=== PATIENT | female | born 1935 | race Caucasian/White ===

== ENCOUNTER → 2020-07-03 11:05 | Outpatient (BNVA) | payer MEDICARE, SELFPAY | PROVIDERS: PCP Internal Medicine; Visit Provider Surgery | DX: Z09 Encounter for follow-up examination after completed treatment for conditions other than malignant neoplasm (principal); Z87.2 Personal history of diseases of the skin and subcutaneous tissue | CPT/HCPCS: 99212 ==

== ENCOUNTER → 2020-07-31 10:01 | Outpatient (BNVA) | payer MEDICARE, SELFPAY | PROVIDERS: PCP Internal Medicine; Visit Provider Internal Medicine | DX: J44.9 Chronic obstructive pulmonary disease, unspecified (principal) | CPT/HCPCS: 99212 ==

== ENCOUNTER → 2020-08-07 09:31 | Outpatient (BNVA) | payer MEDICARE, SELFPAY | PROVIDERS: PCP Internal Medicine; Visit Provider Surgery | DX: L30.4 Erythema intertrigo (principal); K50.90 Crohn's disease, unspecified, without complications | CPT/HCPCS: 99212 ==

== ENCOUNTER 2020-08-21 16:05 | Emergency (ER) | payer MEDICARE, SELFPAY ==
[2020-08-21 16:22] LABS: Glucose, Whole Blood 158 mg/dL (60-115)
[2020-08-21 16:27] VITALS: BP 161/64; PULSE 80; RESP 16; TEMP 36.6; O2SAT 97; BMI 25.0
--- NOTE | 2020-08-21 17:06 | ED.GENADULT ---
HPI - General Adult General Chief complaint: General Medical Stated complaint: weakness Time Seen by Provider: 08/21/20 16:32 Source: patient Mode of arrival: ambulatory Limitations: no limitations History of Present Illness HPI narrative: Patient's history of diabetes usual blood sugar is around 150 lastly she did not check her blood sugar last night but had good dinner she took her 20 units of Lantus insulin went to sleep woke up today rate 30 not take her insulin did not eat any breakfast was feeling tired was feeling her blood sugar low so she had some sugar and peanut butter then she does not know what happened waiting for the ride to come for doctors appointment and she slept until 230pm patient on arrival patient's blood sugar was not 158 patient feels weak no abdominal pain no nausea no vomiting no diarrhea Related Data Home Medications Medication Instructions Recorded Confirmed amlodipine 10 mg tablet 10 mg PO DAILY 06/21/20 06/21/20 amlodipine 5 mg tablet 5 mg PO DAILY 06/21/20 06/21/20 insulin detemir U-100 100 unit/mL 20 unit SUBCUT DAILY 06/21/20 06/21/20 (3 mL) subcutaneous pen metoprolol succinate 50 mg 50 mg PO DAILY 06/21/20 06/21/20 tablet,extended release 24 hr nystatin 100,000 unit/gram topical TOPICAL BID 06/21/20 06/21/20 ointment simvastatin 10 mg tablet 10 mg PO DAILY 06/21/20 06/21/20 sodium bicarbonate 650 mg tablet 1,300 mg PO BID 06/21/20 06/21/20 albuterol sulfate 90 mcg/actuation 2 puff PO Q6H PRN 07/31/20 aerosol inhaler blood sugar diagnostic #10 ea 07/31/20 lancets #100 ea 07/31/20 pen needle, diabetic 31 gauge x #50 ea 07/31/2012/02 Previous Rx's Medication Instructions Recorded apixaban 5 mg tablet 5 mg PO BID #60 tab 07/31/20 menthol 0.44 %-zinc oxide 20.6 % 1 applic TOPICAL QID PRN #113 g 08/07/20 topical ointment tramadol 50 mg tablet 50 mg PO Q6H PRN #30 tab MDD 1-2 08/07/20 tabs PO Q6H as needed for Allergies Allergy/AdvReac Type Severity Reaction Status Date / Time Iodinated Contrast Media Allergy Severe ANAPHYLAXIS, Unverified 06/05/20 14:37 ITCHY EYES methadone [METHADONE] Allergy Intermediate AGITATED Unverified 06/05/20 14:37 zolpidem [From AMBIEN] Allergy Intermediate EXTREMELY Unverified 06/05/20 14:37 ANXIOUS belladonna alkaloids Allergy Mild UNKNOWN Unverified 06/05/20 14:37 halothane Allergy Mild UNKNOWN Unverified 06/05/20 14:37 morphine Allergy Mild HIVES, Unverified 06/05/20 14:37 AGITATION pentazocine Allergy Mild HIVES Unverified 06/05/20 14:37 Sulfa (Sulfonamide Allergy Mild HIVES, N/V Unverified 06/05/20 14:37 Antibiotics) , ITCHING codeine [Codeine] Allergy Unknown HIVES Unverified 06/05/20 14:37 Halothane Allergy Unknown Unknown Unverified 06/21/20 10:30 naloxone [From TALWIN NX] Allergy Unknown UNKOWN Unverified 06/05/20 14:37 Review of Systems Review of Systems: REVIEW OF SYSTEMS: Pertinent positives and negatives are stated above in the history. GEN: no fevers, chills, fatigue, Weak++ HEENT: no nasal congestion, sore throat, ear pain NEURO: no headache, dizziness, focal weakness PULM: no cough, shortness of breath CV: no chest pain, palpitations, LE edema ABD: no abdominal pain, nausea, vomiting, diarrhea : no dysuria, urgency, frequency SKIN: no rash ROS otherwise negative x 10 PMFSH Past Medical History Medical History COPD (chronic obstructive pulmonary disease) Crohn's disease Diabetes mellitus Emphysema lung Erythema intertrigo HTN (hypertension) with goal to be determined Seborrheic keratoses Surgical History History of abdominoplasty History of appendectomy History of bilateral salpingo-oophorectomy History of cholecystectomy History of hernia repair History of ileostomy History of laparotomy (~1970) History of tonsillectomy and adenoidectomy Family History Family History Father History of myocardial infarction Mother History of myocardial infarction Sister History of lymphoma Daughter History of fibromyalgia History of diabetes mellitus, type II Paternal Grandfather History of heart failure Maternal Grandfather History of heart failure Maternal Grandmother History of heart failure Social History Social History Alcohol intake: never Smoking Status: Never smoker Use of substances other than those prescribed or required for medical reasons: No Advance Directives: No Advance Directives Information Provided: No Physical Exam Vital Signs: Vital Signs: Last Vital Signs Temp 98.0 F 08/21/20 22:22 Pulse 89 08/21/20 23:08 Resp 20 08/21/20 22:22 BP 168/69 H 08/21/20 22:22 Pulse Ox 93 08/21/20 22:22 Body Mass Index 25.0 Appearance: Alert. Oriented X3. No acute distress. Eyes: Pupils equal, round and reactive to light. ENT: Pharynx normal. Neck: Normal inspection. Neck supple. CVS: Normal heart rate and rhythm. Pulses normal. Respiratory: No respiratory distress. Breath sounds normal. Equal air entry both sides Abdomen: Soft and nontender. Bowel sounds are present no mass palpable no hernia palpable colostomy bag in place allison Pelvic exam diffuse excoriation in pelvic area clinically intertrigo, spectral exam normal vagina from inside no bleeding Skin: Skin warm and dry. Normal skin color. Normal skin turgor. Extremities: No lower extremity edema. Good range of movement Neuro: Oriented X 3. No motor deficit. No sensory deficit. Course Course Course Narrative: Patient with increased weakness nonspecific feels unsafe to go home would like some help at home, in the ER when patient walk she was unsteady on her feet will get case management involved tomorrow patient with chronic renal disease Medical Decision Making MDM Narrative Medical decision making narrative: Patient has increased weakness workup is negative. Patient asking for help at will get case management patient signed out to Dr. flores Lab Data Lab results reviewed: Yes I reviewed the patient's lab results. Result diagrams: 08/21/20 18:51 08/21/20 18:51 Labs: Lab Results 08/21/20 08/21/20 08/21/20 Range/Units 16:19 17:25 17:25 WBC (4.8-10.8) X10*3/uL RBC (4.20-5.50) X10*6/uL Hgb (12.0-16.0) g/dl Hct (37-47) % MCV (80-98) fL MCH (27.0-33.0) pg MCHC (31.0-35.0) g/dl RDW (11.0-16.0) % Plt Count (160-400) X10*3/uL MPV (9.4-12.3) fL Immature Gran % (Auto) (0.0-0.4) % Neut % (Auto) (45-73) % Lymph % (Auto) (20-40) % [place] % (Auto) (2-11) % Eos % (Auto) (0-4) % Baso % (Auto) (0-2) % Lymph # (Auto) (1.2-4.9) X10*3/uL [place] # (Auto) (0.1-1.2) X10*3/uL Eos # (Auto) (0.0-0.4) X10*3/uL Baso # (Auto) (0.0-0.2) X10*3/uL Abs Immat Gran (auto) (0.00-0.03) X10*3/uL Absolute Neuts (auto) (2.0-8.3) X10*3/uL Absolute Nucleated RBC (0.0-0.012) X10*3/uL Nucleated RBC % (auto) (0.0-0.2) /100WBC Sodium (135-145) mmol/L Potassium (3.3-5.1) mmol/l Chloride (96-108) mmol/L Carbon Dioxide (22-29) mmol/L Anion Gap (12-20) BUN (9-16) mg/dL Creatinine (0.5-1.4) mg/dL Estim Creat Clear Calc Estimated GFR POC Glucose 158 H (60-115) mg/dL Random Glucose (60-115) mg/dL Calcium (8.4-10.2) mg/dL Total Bilirubin (0.0-1.0) mg/dL Direct Bilirubin (0.0-0.5) mg/dL AST (5-31) U/L ALT (0-31) U/L Alkaline Phosphatase (39-117) U/L Total Protein (6.5-8.0) g/dL Albumin (3.5-5.0) g/dL Urine Color YELLOW Urine Appearance HAZY Urine pH 5.5 (5.0-8.0) Ur Specific [place] >= 1.030 H (1.005-1.025) Urine Protein 1+ H (NEG-TRACE) MG/DL Urine Glucose (UA) 250 H (NEG) MG/DL Urine Ketones NEG (NEG) MG/DL Urine Blood 1+ H (NEG) Urine Nitrite NEG (NEG) Ur Leukocyte Esterase TRACE H (NEG) Urine RBC 1-4 (0) /HPF Urine WBC 5-9 H (0-4) /HPF Ur Squamous Epith Cells TRACE /LPF Urine Bacteria TRACE /LPF Coronavirus (PCR) NEGATIVE (Negative) Influenza Type A (PCR) NEGATIVE (Negative) Influenza Type B (PCR) NEGATIVE (Negative) RSV RNA Qual (PCR) NEGATIVE (Negative) 08/21/20 08/21/20 Range/Units 18:51 18:51 WBC 10.6 (4.8-10.8) X10*3/uL RBC 4.00 L (4.20-5.50) X10*6/uL Hgb 11.6 L (12.0-16.0) g/dl Hct 36.7 L (37-47) % MCV 91.8 (80-98) fL MCH 29.0 (27.0-33.0) pg MCHC 31.6 (31.0-35.0) g/dl RDW 13.2 (11.0-16.0) % Plt Count 260 (160-400) X10*3/uL MPV 9.1 L (9.4-12.3) fL Immature Gran % (Auto) 0.4 (0.0-0.4) % Neut % (Auto) 88.4 H (45-73) % Lymph % (Auto) 7.1 L (20-40) % [place] % (Auto) 3.8 (2-11) % Eos % (Auto) 0.1 (0-4) % Baso % (Auto) 0.2 (0-2) % Lymph # (Auto) 0.8 L (1.2-4.9) X10*3/uL [place] # (Auto) 0.4 (0.1-1.2) X10*3/uL Eos # (Auto) 0.0 (0.0-0.4) X10*3/uL Baso # (Auto) 0.0 (0.0-0.2) X10*3/uL Abs Immat Gran (auto) 0.04 H (0.00-0.03) X10*3/uL Absolute Neuts (auto) 9.4 H (2.0-8.3) X10*3/uL Absolute Nucleated RBC 0.000 (0.0-0.012) X10*3/uL Nucleated RBC % (auto) 0.0 (0.0-0.2) /100WBC Sodium 137 (135-145) mmol/L Potassium 5.1 (3.3-5.1) mmol/l Chloride 104 (96-108) mmol/L Carbon Dioxide 23 (22-29) mmol/L Anion Gap 15 (12-20) BUN 31 H (9-16) mg/dL Creatinine 1.42 H (0.5-1.4) mg/dL Estim Creat Clear Calc 26.4 Estimated GFR 35 POC Glucose (60-115) mg/dL Random Glucose 286 H (60-115) mg/dL Calcium 8.4 (8.4-10.2) mg/dL Total Bilirubin 0.5 (0.0-1.0) mg/dL Direct Bilirubin 0.2 (0.0-0.5) mg/dL AST 15 (5-31) U/L ALT 13 (0-31) U/L Alkaline Phosphatase 84 (39-117) U/L Total Protein 6.3 L (6.5-8.0) g/dL Albumin 3.7 (3.5-5.0) g/dL Urine Color Urine Appearance Urine pH (5.0-8.0) Ur Specific [place] (1.005-1.025) Urine Protein (NEG-TRACE) MG/DL Urine Glucose (UA) (NEG) MG/DL Urine Ketones (NEG) MG/DL Urine Blood (NEG) Urine Nitrite (NEG) Ur Leukocyte Esterase (NEG) Urine RBC (0) /HPF Urine WBC (0-4) /HPF Ur Squamous Epith Cells /LPF Urine Bacteria /LPF Coronavirus (PCR) (Negative) Influenza Type A (PCR) (Negative) Influenza Type B (PCR) (Negative) RSV RNA Qual (PCR) (Negative) Discharge Plan Discharge Clinical Impression: Weakness, Erythema intertrigo Prescriptions: No [facility] apixaban 5 mg tablet 5 mg PO BID Qty: 60 RF: 1 (DME) Accu-Chek Rema Plus test strp Strip See Rx Instructions ea Not Applicable QID Qty: 10 RF: 0 (DME) lancets Misc See Rx Instructions ea topical QID Qty: 100 RF: 0 (DME) pen needle, diabetic 31 gauge x 3/16 needle See Rx Instructions ea .ROUTE .MEDSUPPLY Qty: 50 RF: 0 albuterol sulfate 90 mcg/actuation HFA aerosol inhaler 2 puff PO Q6H PRNRF: 0 metoprolol succinate 50 mg tablet extended release 24 hr 50 mg PO DAILY RF: 0 nystatin 100,000 unit/gram ointment topical BID RF: 0 sodium bicarbonate 650 mg tablet 1,300 mg PO BID RF: 0 amlodipine 5 mg tablet 5 mg PO DAILY RF: 0 Levemir FlexTouch U-100 Insuln 100 unit/mL (3 mL) insulin pen 20 unit subcut DAILY RF: 0 amlodipine 10 mg tablet 10 mg PO DAILY RF: 0 simvastatin 10 mg tablet 10 mg PO DAILY RF: 0 Calmoseptine 0.44-20.6 % ointment 1 applic topical QID PRN (Reason: skin irritation) Qty: 113 RF: 2 tramadol 50 mg tablet 50 mg PO Q6H MDD 1-2 tabs PO Q6H as needed for PRN (Reason: pain) Qty: 30 RF: 0
[2020-08-21 17:40] LABS: Glucose Urine UA 250 MG/DL (NEG); Leukocyte Esterase Urine TRACE (NEG); Nitrite Urine NEG (NEG); PH 5.5 (5.0-8.0); Specific Gravity - Urine >= 1.030 (1.005-1.025); Urine Blood 1+ (NEG); Urine Ketones NEG (NEG); Urine Protein 1+ MG/DL (NEG-TRACE)
[2020-08-21 18:13] LABS: Appearance Urine HAZY; Color Urine YELLOW
[2020-08-21 18:14] LABS: Bacteria Urine TRACE /LPF; Squamous Epithelial Cell Urine TRACE /LPF
[2020-08-21 18:20] LABS: Influenza A PCR NEGATIVE (Negative); Influenza B PCR NEGATIVE (Negative); Resp Syncy Virus RNA Qual PCR NEGATIVE (Negative); SARS COV2 PCR INHOUSE NEGATIVE (Negative)
[2020-08-21 19:01] LABS: Basophils Percent Auto 0.2 % (0-2); Eosinophils Percent Auto 0.1 % (0-4); Hematocrit 36.7 % (37-47); Hemoglobin 11.6 g/dl (12.0-16.0); Imm Gran Abs Auto 0.04 X10*3/uL (0.00-0.03); Imm Gran Pct Auto 0.4 % (0.0-0.4); Lymphocytes Absolute Auto 0.8 X10*3/uL (1.2-4.9); Lymphocytes Percent Auto 7.1 % (20-40); Mean Corpuscular HGB Conc 31.6 g/dl (31.0-35.0); Mean Corpuscular Volume 91.8 fL (80-98); Mean Platelet Volume 9.1 fL (9.4-12.3); Monocytes Absolute Auto 0.4 X10*3/uL (0.1-1.2); Monocytes Percent Auto 3.8 % (2-11); Neutrophils Absolute Auto 9.4 X10*3/uL (2.0-8.3); Neutrophils Percent Auto 88.4 % (45-73); Platelet Count 260 X10*3/uL (160-400); Red Cell Distribution Width 13.2 % (11.0-16.0); White Blood Count 10.6 X10*3/uL (4.8-10.8)
[2020-08-21 19:03] LABS: MANUAL DIFF FLAG NO
--- NOTE | 2020-08-21 19:13 | PC.NURSE ---
assumed care of pt with no report from prior RN. Pt has been awake, oriented and talkative. She is difficult IV access. phlebotomy to bedside to draw blood. Pt asked malik go to bathroom, she was ambulated with assist of 2 nurses and noted to have very unsteady gait. while in restroom braulio blood noted on undergarments and in toilet after pt voided. She was helped back to stretcher and placed in room. She is notably short of breath after ambulating, she states this is baseline and she has COPD. MD aware of braulio blood with voiding.
[2020-08-21 19:17] VITALS: BP 173/73; PULSE 89; RESP 28; O2SAT 94
[2020-08-21 19:30] LABS: Alanine Aminotransferase 13 U/L (0-31); Albumin Level 3.7 g/dL (3.5-5.0); Alkaline Phosphatase 84 U/L (39-117); Anion Gap 15 (12-20); Aspartate Amino Transferase 15 U/L (5-31); Bilirubin Direct 0.2 mg/dL (0.0-0.5); Bilirubin Total 0.5 mg/dL (0.0-1.0); Blood Urea Nitrogen 31 mg/dL (9-16); Calcium 8.4 mg/dL (8.4-10.2); Carbon Dioxide 23 mmol/L (22-29); Chloride 104 mmol/L (96-108); Creatinine Clr Calc Pharmacy 26.4; Estimated Glomerular Filt Rate 35; Glucose Random 286 mg/dL (60-115); Potassium 5.1 mmol/l (3.3-5.1); Sodium 137 mmol/L (135-145); Total Protein 6.3 g/dL (6.5-8.0)
[2020-08-21 20:00] VITALS: BP 146/78; PULSE 88; RESP 16; O2SAT 93
[2020-08-21] MEDS: cephALEXin 500 MG CAPSULE PO (20:43)
[2020-08-21] MEDS: Fluconazole 150 MG TABLET PO (20:43)
--- NOTE | 2020-08-21 22:20 | PC.NURSE ---
discussed pt's living situation with pt. She states she lives alone, no children. She states she does not feel steady enough to go home, states she feels like she is unable to walk. Pt has needed assistance walking to bathroom and has had unsteady gait. She states she normally walks at home with a walker, and that she would normally be able to get up on her own but is unable to at this time. She states she is afraid she may fall at home or be unable to get help if she cannot get up. aware, pt to have case management consult in AM. She has been given a snack and is resting quietly, uses call light appropriately but seems mildly confused at times.
[2020-08-21 22:22] VITALS: BP 168/69; PULSE 86; RESP 20; TEMP 36.7; O2SAT 93
--- NOTE | 2020-08-21 22:54 | PC.NURSE ---
rt called for treatment.
[2020-08-21] MEDS: Albuterol/Iprat 2.5/0.5MG 3 ML AMPUL.NEB INHALE (23:07)
[2020-08-21] MEDS: Albuterol Sulfate (0.083%) 2.5 MG/3 ML VIAL.NEB INHALE (23:07)
[2020-08-21 23:08] VITALS: PULSE 89; O2SAT 93
[2020-08-22] VITALS: RESP 16; O2SAT 91
[2020-08-22 02:00] VITALS: PULSE 80; RESP 16; O2SAT 96
[2020-08-22 03:31] VITALS: BP 169/68; PULSE 88; RESP 20; O2SAT 97
--- NOTE | 2020-08-22 03:33 | PC.NURSE ---
REPORT TAKEN FROM JAYLON RN, FIRST CONTACT WITH PT. A&Ox4 SKIN PWD RESPIRATIONS EVEN UNLABORED. AMBULATED PT TO BATHROOM, SLOW STEADY GAIT. PT FRUSTRATED STATES LEGS DONT WANT TO MOVE. STATES SHES NORMALLY MUCH MORE ON THE GO. BROUGHT BACK TO ROOM, REPOSITIONED FOR COMFORT. FRESH WATER AND COFFEE PROVIDED PER REQUEST. AWAITING PT/CASE MANAGEMENT CONSULT IN AM. AWARE OF PLAN OF CARE.
--- NOTE | 2020-08-22 06:01 | PC.NURSE ---
PT CONTINUES TO AWAIT CASE MANAGEMENT CONSULT IN AM. OFFERS NO COMPLAINTS AT THIS TIME.
--- NOTE | 2020-08-22 08:22 | PC.NURSE ---
REPORT FROM DAYSI Mcmillan AT 0700 SHIFT. PT CASE MANAGEMENT HOLD FOR [facility]. SLEEPING. BREAKFAST ORDERED.
[2020-08-22 08:39] VITALS: BP 169/68; PULSE 88; O2SAT 97
[2020-08-22 09:22] VITALS: BP 149/51; PULSE 79; RESP 20; O2SAT 95
--- NOTE | 2020-08-22 09:29 | MHC.CM.ED ---
Received case management consult overnight. Patient came to ER due to weakness. Work up essentially negative. Physical therapy eval completed. Short term rehab is recommended. Met with patient in regards to d/c planning. Patient lives alone, has a walker/motorized scooter for mobilillty and receives Me[facility] On Wheels from [facility]. PCP verified. Copy of HCP verified to be on file. Patient is refusing short term rehab at this time. Patient states I've been there before. It doesn't do anything. Patient agreeable to go home with referral to [facility]. Patient has no transportation home. [facility] booked. Med nec with chart. Continue to monitor for d/c needs.
[2020-08-22 12:11] LABS: Glucose, Whole Blood 297 mg/dL (60-115)
== END 2020-08-22 10:51 | disposition home or self-care (01) ==
PROVIDERS: Emergency Provider Internal Medicine; PCP Internal Medicine
DX: R53.1 Weakness (principal); L30.4 Erythema intertrigo; Z20.828 Contact with and (suspected) exposure to other viral communicable diseases; E11.9 Type 2 diabetes mellitus without complications; I10 Essential (primary) hypertension; K50.90 Crohn's disease, unspecified, without complications; Z79.4 Long term (current) use of insulin; Z79.899 Other long term (current) drug therapy
CPT/HCPCS: 0241U; 36415; 80048; 80076; 81001; 82947; 85025; 87086; 94640; 96360; 97161; 99284; 99285

== ENCOUNTER 2020-09-20 04:18 | Inpatient (IN) | payer MEDICARE, SELFPAY ==
[2020-09-20] VITALS (12 sets, daily range): BP systolic 97–153; BP diastolic 46–90; PULSE 68–94; RESP 15–37; TEMP 36.5–37; O2SAT 89–100; BMI 24.2
--- NOTE | 2020-09-20 04:38 | ED_ITS ---
HPI - SOB/Dyspnea General Chief Complaint: Dyspnea Stated Complaint: FLU LIKE SYMPTOMS Time Seen by Provider: 09/20/20 04:36 Source: patient Mode of arrival: EMS Limitations: no limitations History of Present Illness HPI Narrative: Patient's history of COPD not on home oxygen, Crohn's disease comes here for increased shortness of breath for last 3 weeks got worse in last 1 week with dry cough mostly also complaining of body aches decreased appetite denies any fever no recent contact with any COVID infection patient was seen here on 08/21 and that time COVID was negative. When EMS reached patient was saturating 89% at room air was tachypneic on 2 L patient is saturating 99% with respiratory rate of 37 MD elicited complaint: shortness of breath and cough Pertinent past history: COPD Onset (ago): week(s) (3) Timing: constant Severity: moderate Related Data Home Medications Medication Instructions Recorded Confirmed amlodipine 5 mg tablet 5 mg PO DAILY 06/21/20 06/21/20 insulin detemir U-100 100 unit/mL 20 unit SUBCUT DAILY 06/21/20 06/21/20 (3 mL) subcutaneous pen metoprolol succinate 50 mg 50 mg PO DAILY 06/21/20 06/21/20 tablet,extended release 24 hr nystatin 100,000 unit/gram topical TOPICAL BID 06/21/20 06/21/20 ointment simvastatin 10 mg tablet 10 mg PO DAILY 06/21/20 06/21/20 sodium bicarbonate 650 mg tablet 1,300 mg PO BID 06/21/20 06/21/20 albuterol sulfate 90 mcg/actuation 2 puff PO Q6H PRN 07/31/20 aerosol inhaler blood sugar diagnostic #10 ea 07/31/20 lancets #100 ea 07/31/20 pen needle, diabetic 31 gauge x #50 ea 07/31/20 3/16 apixaban 5 mg tablet 5 mg PO BID 08/25/20 oxybutynin chloride 5 mg tablet 5 mg PO BEDTIME PRN 08/25/20 Previous Rx's Medication Instructions Recorded apixaban 5 mg tablet 5 mg PO BID #60 tab 07/31/20 menthol 0.44 %-zinc oxide 20.6 % 1 applic TOPICAL QID PRN #113 g 08/07/20 topical ointment cefuroxime axetil 250 mg PO Q12H 7 Days #14 tab 08/22/20 blood sugar diagnostic #100 ea 08/26/20 blood-glucose meter #1 ea 08/26/20 lancets #100 ea 08/26/20 insulin detemir U-100 100 unit/mL 20 unit SUBCUT BEDTIME #15 ml 08/28/20 (3 mL) subcutaneous pen tramadol 50 mg tablet 50 mg PO BID PRN #30 tab MDD 1-2 08/28/20 tabs PO Q6H as needed for Allergies Allergy/AdvReac Type Severity Reaction Status Date / Time Iodinated Contrast Media Allergy Severe ANAPHYLAXIS, Verified 09/20/20 04:29 ITCHY EYES methadone [METHADONE] Allergy Intermediate AGITATED Verified 09/20/20 04:29 zolpidem [From AMBIEN] Allergy Intermediate EXTREMELY Verified 09/20/20 04:29 ANXIOUS belladonna alkaloids Allergy Mild UNKNOWN Verified 09/20/20 04:29 halothane Allergy Mild UNKNOWN Verified 09/20/20 04:29 morphine Allergy Mild HIVES, Verified 09/20/20 04:29 AGITATION pentazocine Allergy Mild HIVES Verified 09/20/20 04:29 Sulfa (Sulfonamide Allergy Mild HIVES, N/V Verified 09/20/20 04:29 Antibiotics) , ITCHING codeine [Codeine] Allergy Unknown HIVES Verified 09/20/20 04:29 Halothane Allergy Unknown Unknown Verified 09/20/20 04:29 naloxone [From TALWIN NX] Allergy Unknown UNKOWN Unverified 06/05/20 14:37 Review of Systems Review of Systems: Constitutional : No Weight loss, No Fever, No Chills ENT/Mouth : No sore throat, No Rhinorrhea Eyes: No Eye Pain, No Swelling Cardiovascular : No Chest Pain, no palpitations Respiratory : ++Cough, No Sputum, ++ shortness of breath Gastrointestinal : no Nausea, No Vomiting, No Diarrhea, No abdominal Pain, no black stools Genitourinary : No Dysuria, No Urinary Frequency Musculoskeletal : No joint pain, No Myalgias, No Joint Swelling Skin : No Skin Lesions, No rash Neuro : No Weakness, No Numbness, No Dizziness, No Headache Psych : No Anxiety/Panic, No Depression Heme/Lymph: No Bruising, No Lymphadenopathy Endocrine : No Polyuria, No Polydipsia All other systems reviewed and are negative [facility] Past Medical History Medical History COPD (chronic obstructive pulmonary disease) Crohn's disease Diabetes mellitus 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 Emphysema lung Erythema intertrigo HTN (hypertension) with goal to be determined Seborrheic keratoses Surgical History History of abdominoplasty History of appendectomy History of bilateral salpingo-oophorectomy History of cholecystectomy History of hernia repair History of ileostomy History of laparotomy (~1970) History of tonsillectomy and adenoidectomy Family History Family History Father History of myocardial infarction Mother History of myocardial infarction Sister History of lymphoma Daughter History of fibromyalgia History of diabetes mellitus, type II Paternal Grandfather History of heart failure Maternal Grandfather History of heart failure Maternal Grandmother History of heart failure Social History Social History Alcohol intake: never Smoking Status: Never smoker Advance Directives: No Advance Directives Information Provided: No Physical Exam Vital Signs: Vital Signs: Last Vital Signs Temp 97.9 F 09/20/20 06:00 Pulse 94 09/20/20 07:20 Resp 22 H 09/20/20 07:20 BP 137/90 H 09/20/20 06:00 Pulse Ox 98 09/20/20 07:20 Body Mass Index 24.2 VITAL SIGNS: Reviewed. GENERAL: Well developed, well nourished, in mild distress. Tachypneic+ HEAD: Normocephalic/atraumatic, EYES: PERRLA No pallor/icterus noted OROPHARYNX: Oral mucosa moist no oral lesions NECK: Supple, no adenopathy LUNGS: Prolonged expiration, decreased breath sounds bilateral. Using accessory respiratory muscles no crackles rhonchi+ wheezing + CARDIOVASCULAR: Regular rate and rhythm without noted murmurs, no JVD or lower extremity edema. ABDOMEN: Soft, non-tender, non-distended with normal bowel sounds. No rigidity. No guarding. No palpable masses or hernias noted colostomy bag is present MUSCULOSKELETAL: No tenderness, deformities, EXTREMITIES: No cyanosis or edema. SKIN: Intertrigo rash present in perineal area NEUROLOGIC: Alert and oriented x 3. Strength and sensation to light touch were grossly intact normal speech MDM - SOB/Dyspnea MDM Narrative Medical decision making narrative: Patient's history of COPD a ex-smoker comes here for increased shortness of breath chest x-ray showed COPD findings with patchy infiltrate normal WBC count normal lactic acid. Also lab showed worsening of renal functions with slightly elevated potassium without any EKG changes which was corrected by p.o. Kayexalate and insulin and albuterol treatment. Patient COVID test came back positive will admit patient for hypoxia COPD/COVID-19 Differential Diagnosis Differential diagnosis: Likely acute exacerbation of chronic obstructive airways disease, congestive heart failure, pneumonia and asthma with exacerbation Medical Records Attestation: I reviewed the patient's medical records. Lab Data Attestation: I reviewed the patient's lab results. Result diagrams: 09/20/20 04:58 09/20/20 04:58 Labs: Lab Results 09/20/20 09/20/20 09/20/20 Range/Units 04:58 04:58 04:58 WBC 5.6 (4.8-10.8) X10*3/uL RBC 4.77 (4.20-5.50) X10*6/uL Hgb 13.8 (12.0-16.0) g/dl Hct 41.9 (37-47) % MCV 87.8 (80-98) fL MCH 28.9 (27.0-33.0) pg MCHC 32.9 (31.0-35.0) g/dl RDW 13.1 (11.0-16.0) % Plt Count 212 (160-400) X10*3/uL MPV 9.7 (9.4-12.3) fL Immature Gran % (Auto) 0.5 H (0.0-0.4) % Neut % (Auto) 73.7 H (45-73) % Lymph % (Auto) 13.7 L (20-40) % Spencer % (Auto) 11.7 H (2-11) % Eos % (Auto) 0.2 (0-4) % Baso % (Auto) 0.2 (0-2) % Lymph # (Auto) 0.8 L (1.2-4.9) X10*3/uL Spencer # (Auto) 0.7 (0.1-1.2) X10*3/uL Eos # (Auto) 0.0 (0.0-0.4) X10*3/uL Baso # (Auto) 0.0 (0.0-0.2) X10*3/uL Abs Immat Gran (auto) 0.03 (0.00-0.03) X10*3/uL Absolute Neuts (auto) 4.1 (2.0-8.3) X10*3/uL Absolute Nucleated RBC 0.000 (0.0-0.012) X10*3/uL Nucleated RBC % (auto) 0.0 (0.0-0.2) /100WBC PT (10.8-13.0) SEC INR (0.9-1.1) APTT (24.1-38.0) SEC D-Dimer NG/ML Sodium 127 L (135-145) mmol/L Potassium 5.8 H (3.3-5.1) mmol/l Chloride 95 L (96-108) mmol/L Carbon Dioxide 18 L (22-29) mmol/L Anion Gap 20 (12-20) BUN 61 H D (9-16) mg/dL Creatinine 2.73 H (0.5-1.4) mg/dL Estim Creat Clear Calc 12.5 Estimated GFR 17 Random Glucose 424 H* (60-115) mg/dL Lactic Acid 1.4 (0.5-2.0) mmol/L Calcium 8.1 L (8.4-10.2) mg/dL Total Bilirubin 0.3 (0.0-1.0) mg/dL AST 16 (5-31) U/L ALT 19 (0-31) U/L Alkaline Phosphatase 81 (39-117) U/L Troponin I High Sens (<3.5-17.0) ng/L B-Natriuretic Peptide (<100) pg/mL Total Protein 6.7 (6.5-8.0) g/dL Albumin 3.9 (3.5-5.0) g/dL Urine Color Urine Appearance Urine pH (5.0-8.0) Ur Specific [place] (1.005-1.025) Urine Protein (NEG-TRACE) MG/DL Urine Glucose (UA) (NEG) MG/DL Urine Ketones (NEG) MG/DL Urine Blood (NEG) Urine Nitrite (NEG) Ur Leukocyte Esterase (NEG) Urine RBC (0) /HPF Urine WBC (0-4) /HPF Ur Squamous Epith Cells /LPF Amorphous Sediment /LPF Urine Bacteria /LPF Hyaline Casts /LPF Coronavirus (PCR) (Negative) Influenza Type A (PCR) (Negative) Influenza Type B (PCR) (Negative) RSV RNA Qual (PCR) (Negative) 09/20/20 09/20/20 09/20/20 Range/Units 04:58 04:58 04:58 WBC (4.8-10.8) X10*3/uL RBC (4.20-5.50) X10*6/uL Hgb (12.0-16.0) g/dl Hct (37-47) % MCV (80-98) fL MCH (27.0-33.0) pg MCHC (31.0-35.0) g/dl RDW (11.0-16.0) % Plt Count (160-400) X10*3/uL MPV (9.4-12.3) fL Immature Gran % (Auto) (0.0-0.4) % Neut % (Auto) (45-73) % Lymph % (Auto) (20-40) % Spencer % (Auto) (2-11) % Eos % (Auto) (0-4) % Baso % (Auto) (0-2) % Lymph # (Auto) (1.2-4.9) X10*3/uL Spencer # (Auto) (0.1-1.2) X10*3/uL Eos # (Auto) (0.0-0.4) X10*3/uL Baso # (Auto) (0.0-0.2) X10*3/uL Abs Immat Gran (auto) (0.00-0.03) X10*3/uL Absolute Neuts (auto) (2.0-8.3) X10*3/uL Absolute Nucleated RBC (0.0-0.012) X10*3/uL Nucleated RBC % (auto) (0.0-0.2) /100WBC PT 18.6 H (10.8-13.0) SEC INR 1.6 H (0.9-1.1) APTT 32.1 (24.1-38.0) SEC D-Dimer < 200 NG/ML Sodium (135-145) mmol/L Potassium (3.3-5.1) mmol/l Chloride (96-108) mmol/L Carbon Dioxide (22-29) mmol/L Anion Gap (12-20) BUN (9-16) mg/dL Creatinine (0.5-1.4) mg/dL Estim Creat Clear Calc Estimated GFR Random Glucose (60-115) mg/dL Lactic Acid (0.5-2.0) mmol/L Calcium (8.4-10.2) mg/dL Total Bilirubin (0.0-1.0) mg/dL AST (5-31) U/L ALT (0-31) U/L Alkaline Phosphatase (39-117) U/L Troponin I High Sens 12.9 (<3.5-17.0) ng/L B-Natriuretic Peptide 67 (<100) pg/mL Total Protein (6.5-8.0) g/dL Albumin (3.5-5.0) g/dL Urine Color Urine Appearance Urine pH (5.0-8.0) Ur Specific [place] (1.005-1.025) Urine Protein (NEG-TRACE) MG/DL Urine Glucose (UA) (NEG) MG/DL Urine Ketones (NEG) MG/DL Urine Blood (NEG) Urine Nitrite (NEG) Ur Leukocyte Esterase (NEG) Urine RBC (0) /HPF Urine WBC (0-4) /HPF Ur Squamous Epith Cells /LPF Amorphous Sediment /LPF Urine Bacteria /LPF Hyaline Casts /LPF Coronavirus (PCR) POSITIVE A (Negative) Influenza Type A (PCR) NEGATIVE (Negative) Influenza Type B (PCR) NEGATIVE (Negative) RSV RNA Qual (PCR) NEGATIVE (Negative) 09/20/20 Range/Units 05:16 WBC (4.8-10.8) X10*3/uL RBC (4.20-5.50) X10*6/uL Hgb (12.0-16.0) g/dl Hct (37-47) % MCV (80-98) fL MCH (27.0-33.0) pg MCHC (31.0-35.0) g/dl RDW (11.0-16.0) % Plt Count (160-400) X10*3/uL MPV (9.4-12.3) fL Immature Gran % (Auto) (0.0-0.4) % Neut % (Auto) (45-73) % Lymph % (Auto) (20-40) % Spencer % (Auto) (2-11) % Eos % (Auto) (0-4) % Baso % (Auto) (0-2) % Lymph # (Auto) (1.2-4.9) X10*3/uL Spencer # (Auto) (0.1-1.2) X10*3/uL Eos # (Auto) (0.0-0.4) X10*3/uL Baso # (Auto) (0.0-0.2) X10*3/uL Abs Immat Gran (auto) (0.00-0.03) X10*3/uL Absolute Neuts (auto) (2.0-8.3) X10*3/uL Absolute Nucleated RBC (0.0-0.012) X10*3/uL Nucleated RBC % (auto) (0.0-0.2) /100WBC PT (10.8-13.0) SEC INR (0.9-1.1) APTT (24.1-38.0) SEC D-Dimer NG/ML Sodium (135-145) mmol/L Potassium (3.3-5.1) mmol/l Chloride (96-108) mmol/L Carbon Dioxide (22-29) mmol/L Anion Gap (12-20) BUN (9-16) mg/dL Creatinine (0.5-1.4) mg/dL Estim Creat Clear Calc Estimated GFR Random Glucose (60-115) mg/dL Lactic Acid (0.5-2.0) mmol/L Calcium (8.4-10.2) mg/dL Total Bilirubin (0.0-1.0) mg/dL AST (5-31) U/L ALT (0-31) U/L Alkaline Phosphatase (39-117) U/L Troponin I High Sens (<3.5-17.0) ng/L B-Natriuretic Peptide (<100) pg/mL Total Protein (6.5-8.0) g/dL Albumin (3.5-5.0) g/dL Urine Color YELLOW Urine Appearance CLEAR Urine pH 5.5 (5.0-8.0) Ur Specific [place] >= 1.030 H (1.005-1.025) Urine Protein NEG (NEG-TRACE) MG/DL Urine Glucose (UA) >=1000 H (NEG) MG/DL Urine Ketones NEG (NEG) MG/DL Urine Blood NEG (NEG) Urine Nitrite NEG (NEG) Ur Leukocyte Esterase NEG (NEG) Urine RBC 0-2 (0) /HPF Urine WBC 0 (0-4) /HPF Ur Squamous Epith Cells TRACE /LPF Amorphous Sediment TRACE /LPF Urine Bacteria NONE /LPF Hyaline Casts 5-9 /LPF Coronavirus (PCR) (Negative) Influenza Type A (PCR) (Negative) Influenza Type B (PCR) (Negative) RSV RNA Qual (PCR) (Negative) ECG Data Attestation: I personally reviewed and interpreted this ECG as follows: Interpretation: Heart rate 75 normal sinus rhythm normal intervals normal axis no acute ST T wave changes impression normal EKG Discharge Plan Discharge Clinical Impression: COVID-19, Acute hyperkalemia COPD (chronic obstructive pulmonary disease) Qualifiers: COPD type: chronic bronchitis Chronic bronchitis type: mucopurulent Qualified Code(s): J41.1 - Mucopurulent chronic bronchitis Acute renal failure Qualifiers: Acute renal failure type: with acute tubular necrosis Qualified Code(s): N17.0 - Acute kidney failure with tubular necrosis Patient Disposition: Admitted As Inpatient
--- NOTE | 2020-09-20 04:41 | ECG_ITS ---
Test Reason : dyspnea Blood Pressure : / mmHG Vent. Rate : 072 BPM Atrial Rate : 072 BPM P-R Int : 132 ms QRS Dur : 080 ms QT Int : 400 ms P-R-T Axes : 081 052 059 degrees QTc Int : 438 ms Normal sinus rhythm Normal ECG When compared with ECG of 20-SEP-2020 04:35, No significant change was found Referred By: Augustus Sky Electronically Signed By:GABRIELLE SANCHEZ
--- NOTE | 2020-09-20 04:49 | ECG_ITS ---
Test Reason : SOB Blood Pressure : / mmHG Vent. Rate : 075 BPM Atrial Rate : 075 BPM P-R Int : 126 ms QRS Dur : 074 ms QT Int : 364 ms P-R-T Axes : 090 056 057 degrees QTc Int : 406 ms Normal sinus rhythm Normal ECG When compared with ECG of 30-APR-2020 14:00, No significant change was found Referred By: Augustus Sky Electronically Signed By:GABRIELLE SANCHEZ
--- NOTE | 2020-09-20 04:49 | XR_ITS ---
EXAMINATION: XR CHEST CLINICAL INFORMATION: Shortness of breath COMPARISON: 10/15/2019 TECHNIQUE: Frontal view of the chest was obtained. FINDINGS: Cardiac leads overlie the chest. Minimal patchy bilateral opacities are seen. No pleural effusion or pneumothorax. The cardiomediastinal silhouette is within normal limits. No acute osseous abnormality. XR/XR chest 1V IMPRESSION: Minimal patchy bilateral airspace opacities which could be infectious or inflammatory in etiology.
[2020-09-20 05:09] LABS: Basophils Percent Auto 0.2 % (0-2); Eosinophils Percent Auto 0.2 % (0-4); Hematocrit 41.9 % (37-47); Hemoglobin 13.8 g/dl (12.0-16.0); Imm Gran Abs Auto 0.03 X10*3/uL (0.00-0.03); Imm Gran Pct Auto 0.5 % (0.0-0.4); Lymphocytes Absolute Auto 0.8 X10*3/uL (1.2-4.9); Lymphocytes Percent Auto 13.7 % (20-40); Mean Corpuscular HGB Conc 32.9 g/dl (31.0-35.0); Mean Corpuscular Hemoglobin 28.9 pg (27.0-33.0); Mean Corpuscular Volume 87.8 fL (80-98); Mean Platelet Volume 9.7 fL (9.4-12.3); Monocytes Absolute Auto 0.7 X10*3/uL (0.1-1.2); Monocytes Percent Auto 11.7 % (2-11); Neutrophils Absolute Auto 4.1 X10*3/uL (2.0-8.3); Neutrophils Percent Auto 73.7 % (45-73); Platelet Count 212 X10*3/uL (160-400); Red Blood Count 4.77 X10*6/uL (4.20-5.50); Red Cell Distribution Width 13.1 % (11.0-16.0); White Blood Count 5.6 X10*3/uL (4.8-10.8)
[2020-09-20 05:10] LABS: MANUAL DIFF FLAG NO
[2020-09-20] MEDS: Albuterol/Iprat 2.5/0.5MG 3 ML AMPUL.NEB INHALE (05:14)
[2020-09-20] MEDS: Albuterol Sulfate (0.083%) 2.5 MG/3 ML VIAL.NEB 5 MG INHALE (05:14)
[2020-09-20 05:18] LABS: Partial Thromboplastin Time 32.1 SEC (24.1-38.0)
[2020-09-20 05:28] LABS: D Dimer < 200 NG/ML
[2020-09-20 05:33] LABS: Glucose Urine UA >=1000 MG/DL (NEG); Leukocyte Esterase Urine NEG (NEG); Nitrite Urine NEG (NEG); PH 5.5 (5.0-8.0); Specific Gravity - Urine >= 1.030 (1.005-1.025); Urine Blood NEG (NEG); Urine Ketones NEG (NEG); Urine Protein NEG (NEG-TRACE)
[2020-09-20 05:33] LABS: Lactic Acid 1.4 mmol/L (0.5-2.0)
[2020-09-20 05:34] LABS: Appearance Urine CLEAR; Color Urine YELLOW
[2020-09-20 05:42] LABS: Alanine Aminotransferase 19 U/L (0-31); Albumin Level 3.9 g/dL (3.5-5.0); Alkaline Phosphatase 81 U/L (39-117); Anion Gap 20 (12-20); Aspartate Amino Transferase 16 U/L (5-31); B Type Natriuretic Peptide 67 pg/mL (<100); Bilirubin Total 0.3 mg/dL (0.0-1.0); Blood Urea Nitrogen 61 mg/dL (9-16); Calcium 8.1 mg/dL (8.4-10.2); Carbon Dioxide 18 mmol/L (22-29); Chloride 95 mmol/L (96-108); Creatinine Clr Calc Pharmacy 12.5; Estimated Glomerular Filt Rate 17; Glucose Random 424 mg/dL (60-115); Potassium 5.8 mmol/l (3.3-5.1); Sodium 127 mmol/L (135-145); Total Protein 6.7 g/dL (6.5-8.0); Troponin-I High Sensitivity 12.9 ng/L (<3.5-17.0)
--- NOTE | 2020-09-20 05:43 | PC.NURSE ---
PT URGENTLY NEEDED TO VOID UPON ARRIVAL TO ER FROM EMS. PT LOOKED DISTRESSED AND ASKING REPEATEDLY TO USE BATHROOM. PT ASSISTED ONTO COMMODE, BUT WAS UNABLE TO VOID. PT'D SKIN DESCRIBED RED AND RAW IN VAGINAL AREA BY PCT. PT HAS A COLOSTOMY BAG, WHICH WAS EMPTIED BY PCT.
[2020-09-20] MEDS: Insulin Lispro 100 UNIT/ML 3 ML VIAL 10 UNIT SUBCUT ×2 (05:50→21:10)
[2020-09-20 06:13] LABS: Amorphous Sediment Urine TRACE /LPF; RBC Urine 0-2 /HPF (0); Squamous Epithelial Cell Urine TRACE /LPF; WBC Urine 0 /HPF (0-4)
[2020-09-20 06:35] LABS: INTERNATIONAL NORM RATIO 1.6 (0.9-1.1); Prothrombin Time 18.6 SEC (10.8-13.0)
[2020-09-20] MEDS: 0.9 % Sodium Chloride 1,000 ML 999 ML IVCONT (06:40)
[2020-09-20] MEDS: cefTRIAXone sodium 1 GM in 0.9 % Sodium Chloride 50 ML IV (06:41)
[2020-09-20] MEDS: Sodium Polystyrene Sulfon/Sorb 15 GM/60 ML ORAL.SUSP 30 GM PO (06:41)
[2020-09-20 06:55] LABS: Influenza A PCR NEGATIVE (Negative); Influenza B PCR NEGATIVE (Negative); Resp Syncy Virus RNA Qual PCR NEGATIVE (Negative)
[2020-09-20 07:02] LABS: SARS COV2 PCR INHOUSE POSITIVE (Negative)
--- NOTE | 2020-09-20 07:13 | CT_ITS ---
EXAMINATION: CT CHEST WITHOUT CONTRAST CLINICAL INFORMATION: COVID pneumonia with hypoxia. COMPARISON: Chest radiograph done on 09/20/2020 at 5:[address] of the chest done on 05/13/2014. TECHNIQUE: Multidetector volumetric CT imaging of the chest was done. Axial MIP volume rendering provided. Sagittal and coronal reformatted images were obtained. This CT examination was performed using dose optimization techniques as appropriate, variously including the following: *Automated exposure control *Adjustment of mA and/or kV according to patient size (this includes techniques or standardized protocols for targeted exams where dose is matched to indication/reason for exam; i.e. extremities or head) *Use of iterative reconstruction technique DLP: 184.0 mGy-cm FINDINGS: PUBLIC RELATIONS ASSISTANT: Hyperinflated lung field is present bilaterally. LUNGS: Emphysematous disease and superimposed multilobar pleural parenchymal as well as lung parenchymal linear and nodular opacities are noted bilaterally predominantly involving both lower lobes, left upper lobe and to a lesser extent right upper lobe, overall appears similar to prior study dated 05/13/2014. No evidence of any superimposed interstitial pneumonia/COVID pneumonia related changes present. The tracheobronchial tree remains patent. MEDIASTINUM: No pathologically enlarged mediastinal and/or hilar lymphadenopathy present. Atherosclerotic disease of the aorta and is branches including coronary artery calcifications are seen. PLEURA: There is no pleural effusion. No pleural mass or thickening. AXILLA: No lymphadenopathy. UPPER ABDOMEN: Postsurgical changes of cholecystectomy is noted. Bilateral adrenal thickening (left greater than right), appear stable. OSSEOUS STRUCTURES: No focal osseous abnormality. Multilevel degenerative spondylosis. Moderate diffuse osteopenia. CT/CT chest wo con IMPRESSION: No significant change since 05/13/2014. Specifically, no CT evidence of pneumonia is seen.
[2020-09-20] MEDS: Azithromycin 500 MG in 0.9 % Sodium Chloride 250 ML 125 MG IV ×2 (08:28→16:49)
[2020-09-20 10:48] LABS: Glucose, Whole Blood 218 mg/dL (60-115)
--- NOTE | 2020-09-20 12:30 | HP_ITS ---
DATE OF SERVICE: 09/20/2020 PRIMARY CARE PROVIDER: Not listed. CHIEF COMPLAINT: Shortness of breath. HISTORY OF PRESENT ILLNESS: 84-year-old woman, presents to the ER with complaints of worsening shortness of breath over the last 3 weeks. She does have a history of COPD, non-oxygen dependent. She reports that she was having cough with green phlegm and over the last couple of days, body aches and decrease in appetite. She denies any fever, chills, nausea, vomiting, diarrhea. She lives alone and did not have any contact with any COVID positive people. In the ER, she was noted to be hypoxic with oxygen saturation of 89%. She was placed on 2 L, and she did improve significantly. Respiratory rate was high as well. She did have a COVID test on August 21, that was negative. Today, it was positive. Chest CT showed no significant changes and no pneumonia. She was noted to have some lab abnormalities including sodium of 127, potassium of 5.8, creatinine 2.73 with a history of CKD. Her blood sugar was elevated as well at 424. She also received a dose of steroids in the ER. She will be admitted for further management and treatment of acute hypoxic respiratory failure secondary to COVID-19. PAST MEDICAL HISTORY: 1. Atrial fibrillation, on Eliquis. 2. Renal tubular acidosis. 3. Small bowel obstruction. 4. TIA. 5. COPD. 6. Diabetes. 7. Crohn disease. 8. Depression. 9. Hypertension. 10. Colectomy in 1971. 11. Multiple revisions of ileostomy. 12. Total abdominal hysterectomy. 13. Hernia repair. 14. Cholecystectomy. FAMILY HISTORY: Negative for cardiovascular disease. SOCIAL HISTORY: The patient lives alone. She denies any alcohol, tobacco, or illicit drug use. ALLERGIES: TO IV DYE, METHADONE, ZOLPIDEM, BELLADONNA, MORPHINE, PENTAZOCINE, SULFA ANTIBIOTICS, CODEINE, HALOTHANE, NALOXONE. MEDICATIONS: 1. Albuterol sulfate 2 puffs p.o. q.6 hours p.r.n. 2. Amlodipine 10 mg p.o. daily. 3. Apixaban 5 mg p.o. b.i.d. 4. Insulin detemir 20 units subcu daily. 5. Insulin detemir 15 units subcu at bedtime. 6. Metoprolol succinate 50 mg p.o. daily. 7. Nystatin 1 application topically b.i.d. 8. Oxybutynin 5 mg p.o. at bedtime. 9. Simvastatin 1 tab p.o. daily. 10. Sodium bicarbonate 1 tab p.o. b.i.d. 11. Tramadol 1 to 2 tabs p.o. q.6 hours p.r.n. for pain. REVIEW OF SYSTEMS: CONSTITUTIONAL: Denies any recent fever, chills, or decrease in appetite. RESPIRATORY: See HPI. CARDIOVASCULAR: Denies any chest pain, orthopnea, PND, or edema. GASTROINTESTINAL: Denies any dysphagia, abdominal pain, nausea, vomiting, or diarrhea. GENITOURINARY: Denies any dysuria, frequency, or hematuria. MUSCULOSKELETAL: Reported some body aches. NEURO: Denies any weakness or seizures. All other systems are reviewed and are negative. PHYSICAL EXAMINATION: CONSTITUTIONAL: Resting in bed, appearing in no acute distress. VITAL SIGNS: 97/46, 74, 26, 98.6, 100% on 2 L. SKIN: Intact without rashes or open sores. HEENT: Head is normocephalic, atraumatic. Eyes, pupils are PERRLA. Sclerae anicteric. Mouth and throat: Mucous membranes are intact and moist. NECK: Supple. No lymphadenopathy. No JVD noted. CHEST: Equal lung expansion. HEART: Regular rhythm. ABDOMEN: Nontender. NEUROLOGIC: Alert, oriented x3. No focal deficits noted. LABORATORY DATA: Sodium 127, potassium is 5.8, chloride is 95, BUN is 61, creatinine is 2.73. WBC is 5.6, hemoglobin 13.8, hematocrit 41.9, platelets 212. COVID-19 positive. ASSESSMENT AND PLAN: 84-year-old woman, who is being admitted with acute hypoxic respiratory failure secondary to COVID-19. 1. Acute hypoxic respiratory failure. Oxygen saturation improved with oxygen therapy. Continue to monitor. 2. COVID-19. No pneumonia seen on chest CT. We will treat with Decadron for hypoxia. No remdesivir required at this time. Isolation. Supportive care. 3. Chronic obstructive pulmonary disease. Likely mild exacerbation. Will be on steroids. Will also give azithromycin. Continue supplemental oxygen. 4. History of atrial fibrillation. Continue beta eloy and apixaban. 5. Diabetes mellitus, sliding scale, ADA diet, continue long-acting insulin. 6. Hypotension. We will hold antihypertensive medications. Continue to monitor blood pressure closely. 7. Hyponatremia, likely related to dehydration. We will give gentle IV fluids. Repeat BMP this evening. 8. Hyperkalemia. Received 1 dose of Kayexalate in the ER. We will recheck BMP. 9. Acute kidney injury on chronic kidney disease, history of tubular necrosis. We will give very gentle IV fluids and avoid nephrotoxic agents and follow BMP. 10. Deep vein thrombosis prophylaxis with apixaban. 11. Case discussed with Dr. Rangel. 12. Full code. ERNESTO Mcintosh MD JR/LEONARDO / [id number]
--- NOTE | 2020-09-20 15:06 | P.EN_ITS ---
Event Note Date of Service: 09/20/20 Event Note: Addendum to H and P by Mid-level Provider I saw and examined the patient and participated in the [place] portion of the E/M service. I agree with the history and exam as documented by GRAPHIC ART SALES REPRESENTATIVE. Patient likely has acute on chronic resp failure due to COPD ex, on top of newly diagnsed covid. Will admit for covid, copd exacerbation. Treat with IV steroid, bronchodilators and oxygen if becomes hypoxic maybe candidate for Remdesevir or plasma. Otherwise, I agree with assessment and plan as outlined in the H and P.
[2020-09-20] MEDS: 0.9 % Sodium Chloride Flush 3 ML SYRINGE IVFLUSH (16:51)
[2020-09-20 17:11] LABS: Anion Gap 19 (12-20); Blood Urea Nitrogen 59 mg/dL (9-16); Calcium 7.7 mg/dL (8.4-10.2); Carbon Dioxide 20 mmol/L (22-29); Chloride 99 mmol/L (96-108); Creatinine Clr Calc Pharmacy 14.8; Estimated Glomerular Filt Rate 20; Glucose Random 480 mg/dL (60-115); Potassium 5.7 mmol/l (3.3-5.1); Sodium 132 mmol/L (135-145)
[2020-09-20] MEDS: Insulin Lispro 100 UNIT/ML 3 ML VIAL SUBCUT ×3 (18:25→20:39)
[2020-09-20] MEDS: Insulin Glargine,Hum.rec.anlog 100 UNIT/ML 10 ML VIAL 10 UNIT SUBCUT (20:31)
[2020-09-20] MEDS: Apixaban 5 MG TABLET PO (20:31)
[2020-09-20] MEDS: Sodium Bicarbonate 650 MG TABLET PO (20:31)
[2020-09-20 20:38] LABS: Glucose, Whole Blood 498 mg/dL (60-115)
--- NOTE | 2020-09-21 | ECG_ITS ---
Test Reason : HIGH POTASIUM Blood Pressure : / mmHG Vent. Rate : 063 BPM Atrial Rate : 063 BPM P-R Int : 128 ms QRS Dur : 078 ms QT Int : 410 ms P-R-T Axes : 083 056 056 degrees QTc Int : 419 ms Normal sinus rhythm Normal ECG When compared to the previous EKG of No significant changes seen Referred By: Maxwell Orlando Electronically Signed By:Isaiah Pacheco
[2020-09-21] MEDS: 0.9 % Sodium Chloride Flush 3 ML SYRINGE IVFLUSH ×3 (03:21→16:57)
[2020-09-21] MEDS: traMADoL HCL 50 MG TABLET 100 MG PO (03:21)
[2020-09-21 03:24] VITALS: BP 136/74; PULSE 66; RESP 13; TEMP 36.4; O2SAT 100
[2020-09-21 05:15] LABS: Glucose, Whole Blood 90 mg/dL (60-115)
[2020-09-21 06:12] LABS: Hematocrit 42.4 % (37-47); Hemoglobin 13.7 g/dl (12.0-16.0); Imm Gran Abs Auto 0.05 X10*3/uL (0.00-0.03); Imm Gran Pct Auto 0.8 % (0.0-0.4); Lymphocytes Absolute Auto 0.6 X10*3/uL (1.2-4.9); Lymphocytes Percent Auto 9.9 % (20-40); MANUAL DIFF FLAG SCAN; Mean Corpuscular HGB Conc 32.3 g/dl (31.0-35.0); Mean Corpuscular Hemoglobin 28.5 pg (27.0-33.0); Mean Corpuscular Volume 88.3 fL (80-98); Mean Platelet Volume 9.7 fL (9.4-12.3); Monocytes Absolute Auto 0.2 X10*3/uL (0.1-1.2); Monocytes Percent Auto 3.2 % (2-11); Neutrophils Absolute Auto 5.1 X10*3/uL (2.0-8.3); Neutrophils Percent Auto 86.1 % (45-73); Platelet Count 228 X10*3/uL (160-400); SCAN SMEAR FLAG 1; White Blood Count 5.9 X10*3/uL (4.8-10.8)
[2020-09-21 06:40] LABS: Anion Gap 19 (12-20); Blood Urea Nitrogen 61 mg/dL (9-16); Carbon Dioxide 16 mmol/L (22-29); Chloride 105 mmol/L (96-108); Creatinine Clr Calc Pharmacy 19.1; Estimated Glomerular Filt Rate 27; Glucose Random 100 mg/dL (60-115); Potassium 5.9 mmol/l (3.3-5.1); Sodium 134 mmol/L (135-145)
[2020-09-21 07:17] LABS: Glucose, Whole Blood 140 mg/dL (60-115)
[2020-09-21 07:40] VITALS: BP 127/65; PULSE 64; RESP 14; TEMP 36.4; O2SAT 97
[2020-09-21 07:49] LABS: SLIDE REVIEW VERIFIED
[2020-09-21 08:15] VITALS: BP 127/65; PULSE 64
[2020-09-21] MEDS: Insulin Glargine,Hum.rec.anlog 100 UNIT/ML 10 ML VIAL 14 UNIT SUBCUT (08:15)
[2020-09-21] MEDS: Metoprolol Succinate ER 50 MG TAB.ER.24H PO (08:15)
[2020-09-21] MEDS: Sodium Bicarbonate 650 MG TABLET PO ×2 (08:15→20:22)
[2020-09-21] MEDS: Atorvastatin Calcium 10 MG TABLET PO (08:16)
[2020-09-21] MEDS: Apixaban 5 MG TABLET PO ×2 (08:16→20:22)
[2020-09-21] MEDS: Sodium Polystyrene Sulfon/Sorb 15 GM/60 ML ORAL.SUSP 30 GM PO (08:28)
--- NOTE | 2020-09-21 08:28 | MHC.PIE ---
p: patient continues to have hyperkalemia with am K 5.9, up from 5.7. she also has questionably/borderline elevation in her T waves in multiple leads on telemetry. alert and oriented, no chest pain. two BMs over last twelve hours and numerous units of insulin without improvement. i: notify Dr. Orlando and notify dayshift nurse e: continuing to monitor, day shift following up.
--- NOTE | 2020-09-21 08:43 | ECG_ITS ---
Test Reason : HIGH POTASIUM Blood Pressure : / mmHG Vent. Rate : 067 BPM Atrial Rate : 067 BPM P-R Int : 128 ms QRS Dur : 076 ms QT Int : 406 ms P-R-T Axes : 081 052 050 degrees QTc Int : 429 ms Sinus rhythm with Premature atrial complexes Otherwise normal ECG No previous ECGs available Referred By: Maxwell Orlando Electronically Signed By:Isaiah Pacheco
--- NOTE | 2020-09-21 08:49 | HO.PM.IMPN ---
Subjective Subjective Date of Service: 09/21/20 Interval History: Seen in follow-up of COPD exacerbation top of COVID 19 infection. She feels better this morning. No hypoxia Review of Systems Gen: no fever Resp: no sob, no cough CV: no chest, no YEE, no leg edema GI: No n/v, no abd pain Neuro: No confusion Physical Exam Vital Signs: Vital Signs: Last Vital Signs Temp 97.5 F 09/21/20 07:40 Pulse 64 09/21/20 08:15 Resp 14 09/21/20 07:40 BP 127/65 09/21/20 08:15 Pulse Ox 97 09/21/20 07:40 Body Mass Index 24.2 Const: Other: General: AO X 3, no acute distress Resp: Normal respiratory effort. Speaks in full sentences. CVS: S1,S2,RRR GI: +BS, NT, no distention Skin: No rash Neuro: motor grossly intact Psych: appropriate affect Objective Data Current Medications Generic Name Dose Route Start Last Admin Trade Name Freq PRN Reason Stop Dose Admin Acetaminophen 650 mg 09/20/20 15:26 Acetaminophen 325 Mg Tablet PO Q6H PRN Pain, Mild (Pain Scale 1-3) Albuterol Sulfate 2 puff 09/20/20 15:26 Albuterol Sulfate 90 Mcg 8 Gm Inhaler INHALE RQ4H PRN Wheezing Apixaban 5 mg 09/20/20 21:00 09/21/20 08:16 Apixaban 5 Mg Tablet PO 5 mg BID TREVON Administration Atorvastatin Calcium 10 mg 09/21/20 09:00 09/21/20 08:16 Atorvastatin Calcium 10 Mg Tablet PO 10 mg DAILY TREVON Administration Insulin Glargine 14 unit 09/21/20 09:00 09/21/20 08:15 Insulin Glargine,Hum.Rec.Anlog 100 Unit/Ml 10 Ml Vial SUBCUT 14 unit DAILY TREVON Administration Insulin Glargine 10 unit 09/20/20 21:00 09/20/20 20:31 Insulin Glargine,Hum.Rec.Anlog 100 Unit/Ml 10 Ml Vial SUBCUT 10 unit BEDTIME TREVON Administration Insulin Human Lispro 0 unit 09/20/20 21:00 09/20/20 20:39 Insulin Lispro 100 Unit/Ml 3 Ml Vial SUBCUT 10 unit QIDACHS TREVON Administration Protocol Methylprednisolone Sodium Succinate 40 mg 09/20/20 15:26 09/21/20 08:15 Methylprednisolone Sod Succ/Pf 40 Mg/Ml Vial IVPUSH 40 mg Q8H TREVON Administration Metoprolol Succinate 50 mg 09/21/20 09:00 09/21/20 08:15 Metoprolol Succinate Er 50 Mg Tab.Er.24h PO 50 mg DAILY TREVON Administration Protocol Nystatin 1 appl 09/20/20 21:00 09/21/20 08:29 Nystatin Ointment 15 Gm Tube TOPICAL Not Given BID [facility] Protocol Pharmacy Consult 1 each 09/20/20 06:46 Consult Rx Perform Med Rec MISCELLANE ONCE PRN Consult order Sodium Bicarbonate 650 mg 09/20/20 21:00 09/21/20 08:15 Sodium Bicarbonate 650 Mg Tablet PO 650 mg BID TREVON Administration Sodium Chloride 3 ml 09/20/20 16:00 09/21/20 08:15 0.9 % Sodium Chloride Flush 3 Ml Syringe IVFLUSH 3 ml QSHIFT TREVON Administration Tramadol HCl 100 mg 09/20/20 15:26 09/21/20 03:21 Tramadol Hcl 50 Mg Tablet PO 100 mg Q6H PRN Administration Pain, Moderate (Pain Scale 4-6 Labs CBC & Chem 7: 09/21/20 05:59 09/21/20 05:59 Microbiology Microbiology Results: Microbiology 09/20/20 05:09 Blood - Venous Blood Culture - Preliminary No growth after 24 hours. 09/20/20 04:58 Blood - Venous Blood Culture - Preliminary No growth after 24 hours. 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 she has rather severe degree of chronic obstructive pulmonary disease, along with restrictive disorder. symptom medically she is doing well and stable without using any stronger meds. she will use albuterol HFA 2 puffs q.6 hours only p.r.n.. she does not want to use any stronger combination type of inhalers, as she cannot afford even the copayments. Status: Acute (7) HTN (hypertension) with goal to be determined: Status: Acute Assessment and Plan: 84/F with CKD, DM, HTN, AFIB, COPD here with copd exacerbation due to covid-19 1. COPD exacerbation--improving -continue steroid -continue bronchodilators -Oxygen at 2 liters by nasal canula 2. Covid 19-mild symptoms at this time -continue steroid ad oxygen 3. ELIZA--better 4. HyPERkalemia--5.9 -Give Kayexalate 5. Diabetes--Blood sugars are better -continue Lantus -Sliding scale 6. HLD--Lipitor 7. AFIB--rate controlled on Metoprolol, Eliquis for anticoagulation
[2020-09-21 11:26] LABS: Glucose, Whole Blood 326 mg/dL (60-115)
[2020-09-21] MEDS: dexAMETHasone sod phosphate 4 MG/ML VIAL 6 MG IVPUSH (11:41)
[2020-09-21] MEDS: Insulin Lispro 100 UNIT/ML 3 ML VIAL SUBCUT ×3 (11:42→20:22)
[2020-09-21 11:47] VITALS: BP 130/79; PULSE 72; RESP 21; TEMP 36.2; O2SAT 95
--- NOTE | 2020-09-21 11:51 | MHC.CM.PN ---
CM spoke with patient by phone who reports she is independent, amb with a wallker and lives alone. Patient does have a HCP grandson Kalpesh [phone] and a copy is on file. Discussed discharge plan, home with resumption of services from [facility]. Patient will need transport home. CM will continue to follow patient for discharge needs.
[2020-09-21 16:00] VITALS: BP 162/60; PULSE 68; RESP 18; TEMP 36.1; O2SAT 98
[2020-09-21 16:54] LABS: Anion Gap 17 (12-20); Carbon Dioxide 22 mmol/L (22-29); Chloride 101 mmol/L (96-108); Sodium 134 mmol/L (135-145)
[2020-09-21 16:56] LABS: Glucose, Whole Blood 321 mg/dL (60-115)
[2020-09-21 17:04] LABS: Potassium 6.3 mmol/l (3.3-5.1)
[2020-09-21 18:05] LABS: Potassium 5.6 mmol/l (3.3-5.1)
[2020-09-21] MEDS: Sodium Polystyrene Sulfon/Sorb 15 GM/60 ML ORAL.SUSP PO (18:40)
[2020-09-21 20:00] VITALS: BP 117/72; PULSE 69; RESP 17; TEMP 35.8; O2SAT 96
[2020-09-21 20:15] LABS: Glucose, Whole Blood 335 mg/dL (60-115)
[2020-09-21] MEDS: Insulin Glargine,Hum.rec.anlog 100 UNIT/ML 10 ML VIAL 10 UNIT SUBCUT (20:23)
[2020-09-22] MEDS: 0.9 % Sodium Chloride Flush 3 ML SYRINGE IVFLUSH ×3 (00:01→15:03)
[2020-09-22 04:00] VITALS: BP 136/57; PULSE 60; RESP 18; TEMP 35.8; O2SAT 100
[2020-09-22 07:26] LABS: Glucose, Whole Blood 190 mg/dL (60-115)
[2020-09-22 07:26] LABS: Anion Gap 22 (12-20); Blood Urea Nitrogen 59 mg/dL (9-16); Calcium 8.2 mg/dL (8.4-10.2); Carbon Dioxide 17 mmol/L (22-29); Chloride 102 mmol/L (96-108); Creatinine Clr Calc Pharmacy 22.7; Estimated Glomerular Filt Rate 33; Glucose Random 199 mg/dL (60-115); Potassium 5.6 mmol/l (3.3-5.1); Sodium 135 mmol/L (135-145)
[2020-09-22 07:42] VITALS: BP 98/59; PULSE 71; RESP 16; TEMP 36.2; O2SAT 100
[2020-09-22 07:43] LABS: Glucose, Whole Blood 409 mg/dL (60-115)
[2020-09-22] MEDS: Apixaban 5 MG TABLET PO ×2 (08:11→21:10)
[2020-09-22] MEDS: dexAMETHasone sod phosphate 4 MG/ML VIAL 6 MG IVPUSH (08:11)
[2020-09-22] MEDS: Insulin Lispro 100 UNIT/ML 3 ML VIAL SUBCUT ×4 (08:11→21:14)
[2020-09-22] MEDS: Atorvastatin Calcium 10 MG TABLET PO (08:11)
[2020-09-22] MEDS: Sodium Bicarbonate 650 MG TABLET PO ×2 (08:11→21:10)
[2020-09-22] MEDS: Insulin Glargine,Hum.rec.anlog 100 UNIT/ML 10 ML VIAL 14 UNIT SUBCUT (08:13)
--- NOTE | 2020-09-22 09:33 | HO.PM.IMPN ---
Subjective Subjective Date of Service: 09/22/20 Interval History: Seen in follow-up of COPD exacerbation top of COVID 19 infection. She feels better this morning. No hypoxia, 100% on room air Review of Systems Gen: no fever Resp: no sob, no cough CV: no chest, no YEE, no leg edema GI: No n/v, no abd pain Neuro: No confusion Physical Exam Vital Signs: Vital Signs: Last Vital Signs Temp 97.2 F 09/22/20 07:42 Pulse 71 09/22/20 07:42 Resp 16 09/22/20 07:42 BP 98/59 L 09/22/20 07:42 Pulse Ox 100 09/22/20 07:42 Body Mass Index 24.2 Const: Other: General: AO X 3, no acute distress Resp: Normal respiratory effort. Speaks in full sentences. CVS: S1,S2,RRR GI: +BS, NT, no distention Skin: No rash Neuro: motor grossly intact Psych: appropriate affect Objective Data Current Medications Generic Name Dose Route Start Last Admin Trade Name Freq PRN Reason Stop Dose Admin Acetaminophen 650 mg 09/20/20 15:26 Acetaminophen 325 Mg Tablet PO Q6H PRN Pain, Mild (Pain Scale 1-3) Albuterol Sulfate 2 puff 09/20/20 15:26 Albuterol Sulfate 90 Mcg 8 Gm Inhaler INHALE RQ4H PRN Wheezing Apixaban 5 mg 09/20/20 21:00 09/22/20 08:11 Apixaban 5 Mg Tablet PO 5 mg BID TREVON Administration Atorvastatin Calcium 10 mg 09/21/20 09:00 09/22/20 08:11 Atorvastatin Calcium 10 Mg Tablet PO 10 mg DAILY TREVON Administration Dexamethasone Sodium Phosphate 6 mg 09/21/20 09:15 09/22/20 08:11 Dexamethasone Sod Phosphate 4 Mg/Ml Vial IVPUSH 6 mg DAILY TREVON Administration Insulin Glargine 14 unit 09/21/20 09:00 09/22/20 08:13 Insulin Glargine,Hum.Rec.Anlog 100 Unit/Ml 10 Ml Vial SUBCUT 14 unit DAILY TREVON Administration Insulin Glargine 10 unit 09/20/20 21:00 09/21/20 20:23 Insulin Glargine,Hum.Rec.Anlog 100 Unit/Ml 10 Ml Vial SUBCUT 10 unit BEDTIME TREVON Administration Insulin Human Lispro 0 unit 09/20/20 21:00 09/22/20 08:11 Insulin Lispro 100 Unit/Ml 3 Ml Vial SUBCUT 2 unit QIDACHS TREVON Administration Protocol Methylprednisolone Sodium Succinate 40 mg 09/20/20 15:26 09/22/20 05:59 Methylprednisolone Sod Succ/Pf 40 Mg/Ml Vial IVPUSH 40 mg Q8H TREVON Administration Nystatin 1 appl 09/20/20 21:00 09/22/20 08:14 Nystatin Ointment 15 Gm Tube TOPICAL Not Given BID [facility] Protocol Pharmacy Consult 1 each 09/20/20 06:46 Consult Rx Perform Med Rec MISCELLANE ONCE PRN Consult order Sodium Bicarbonate 650 mg 09/20/20 21:00 09/22/20 08:11 Sodium Bicarbonate 650 Mg Tablet PO 650 mg BID TREVON Administration Sodium Chloride 3 ml 09/20/20 16:00 09/22/20 08:11 0.9 % Sodium Chloride Flush 3 Ml Syringe IVFLUSH 3 ml QSHIFT TREVON Administration Tramadol HCl 100 mg 09/20/20 15:26 09/21/20 03:21 Tramadol Hcl 50 Mg Tablet PO 100 mg Q6H PRN Administration Pain, Moderate (Pain Scale 4-6 Labs CBC & Chem 7: 09/21/20 05:59 09/22/20 06:15 Microbiology Microbiology Results: Microbiology 09/20/20 05:09 Blood - Venous Blood Culture - Preliminary No growth after 48 hours. 09/20/20 04:58 Blood - Venous Blood Culture - Preliminary No growth after 48 hours. 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 COPD exacerbation--improving -continue steroid -continue bronchodilators -Oxygen at 2 liters by nasal canula 2. Covid 19 no symptoms at this time -continue steroid ad oxygen 3. ELIZA--better today 4. HyPERkalemia--5.7 -Give Kayexalate -Nephro consult 5. Diabetes--Blood sugars are better -continue Lantus -Sliding scale 6. HLD--Lipitor 7. AFIB--rate controlled on Metoprolol, Eliquis for anticoagulation
--- NOTE | 2020-09-22 10:30 | ECG_ITS ---
Test Reason : HYPERKALEMIA Blood Pressure : / mmHG Vent. Rate : 063 BPM Atrial Rate : 063 BPM P-R Int : 122 ms QRS Dur : 078 ms QT Int : 402 ms P-R-T Axes : 082 056 053 degrees QTc Int : 411 ms Normal sinus rhythm Normal ECG When compared to the previous EKG of No significant changes seen Referred By: Maxwell Orlando Electronically Signed By:Isaiah Pacheco
[2020-09-22] MEDS: Sodium Polystyrene Sulfon/Sorb 15 GM/60 ML ORAL.SUSP 30 GM PO (11:06)
[2020-09-22 11:12] LABS: Glucose, Whole Blood 256 mg/dL (60-115)
[2020-09-22 12:00] VITALS: BP 125/60; PULSE 66; RESP 18; TEMP 36.3; O2SAT 95
[2020-09-22 16:00] VITALS: BP 134/63; PULSE 68; RESP 18; TEMP 36.4
[2020-09-22 16:04] LABS: Glucose, Whole Blood 244 mg/dL (60-115)
--- NOTE | 2020-09-22 16:21 | P.CNID_ITS ---
History of Present Illness Data of Consult Service Date: 09/22/20 Primary Care Provider: Unknown Physician HPI Reason for consult: shortness of breath She presents with some shortness of breath,resolved and then cough She has no fever or chills She has weakness She has had shortness of breath for 3 weeks She has COVID negative on 08/21 and had COVID positive 09/20 Review of Systems Review of Systems: Yes all other systems are reviewed and are negative [facility] Past Medical History Medical History COPD (chronic obstructive pulmonary disease) Crohn's disease Diabetes mellitus 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 Emphysema lung Erythema intertrigo HTN (hypertension) with goal to be determined Seborrheic keratoses Family History Family History Father History of myocardial infarction Mother History of myocardial infarction Sister History of lymphoma Daughter History of fibromyalgia History of diabetes mellitus, type II Paternal Grandfather History of heart failure Maternal Grandfather History of heart failure Maternal Grandmother History of heart failure Surgical History Surgical History History of abdominoplasty History of appendectomy History of bilateral salpingo-oophorectomy History of cholecystectomy History of hernia repair History of ileostomy History of laparotomy (~1970) History of tonsillectomy and adenoidectomy Social History Social History Alcohol intake: never Smoking Status: Former smoker Use of substances other than those prescribed or required for medical reasons: No Currently Displaying Signs/Symptoms of Drug Intoxication Withdrawal: No Advance Directives: No Advance Directives Information Provided: No Do you have thoughts of harming others: None Do you have a plan to hurt others: No Plan service: No Current occupational status: retired Meds Allergies Allergy/AdvReac Type Severity Reaction Status Date / Time Iodinated Contrast Media Allergy Severe ANAPHYLAXIS, Verified 09/20/20 04:29 ITCHY EYES methadone [METHADONE] Allergy Intermediate AGITATED Verified 09/20/20 04:29 zolpidem [From AMBIEN] Allergy Intermediate EXTREMELY Verified 09/20/20 04:29 ANXIOUS belladonna alkaloids Allergy Mild UNKNOWN Verified 09/20/20 04:29 halothane Allergy Mild UNKNOWN Verified 09/20/20 04:29 morphine Allergy Mild HIVES, Verified 09/20/20 04:29 AGITATION pentazocine Allergy Mild HIVES Verified 09/20/20 04:29 Sulfa (Sulfonamide Allergy Mild HIVES, N/V Verified 09/20/20 04:29 Antibiotics) , ITCHING codeine [Codeine] Allergy Unknown HIVES Verified 09/20/20 04:29 Halothane Allergy Unknown Unknown Verified 09/20/20 04:29 Home Medications Medication Instructions Recorded Confirmed Type amlodipine 5 mg tablet 10 mg PO DAILY 06/21/20 09/20/20 History insulin detemir U-100 100 unit/mL 20 unit SUBCUT DAILY 06/21/20 09/20/20 History (3 mL) subcutaneous pen metoprolol succinate 50 mg 50 mg PO DAILY 06/21/20 09/20/20 History tablet,extended release 24 hr nystatin 100,000 unit/gram topical 1 appl TOPICAL BID 06/21/20 09/20/20 History ointment albuterol sulfate 90 mcg/actuation 2 puff PO Q6H PRN 07/31/20 09/20/20 History aerosol inhaler blood sugar diagnostic #10 ea 07/31/20 History lancets #100 ea 07/31/20 History pen needle, diabetic 31 gauge x #50 ea 07/31/20 History 3/16 oxybutynin chloride 5 mg tablet 5 mg PO BEDTIME 08/25/20 09/20/20 History insulin detemir U-100 [Levemir 15 unit SUBCUT BEDTIME 09/20/20 09/20/20 History FlexTouch U-100 Insuln] simvastatin 1 tab PO DAILY 09/20/20 09/20/20 History sodium bicarbonate 1 tab PO BID 09/20/20 09/20/20 History tramadol 1 - 2 tab PO Q6H PRN 09/20/20 09/20/20 History Physical Exam Vital Signs: Vital Signs: Last Vital Signs Temp 97.3 F 09/22/20 12:00 Pulse 66 09/22/20 12:00 Resp 18 09/22/20 12:00 BP 125/60 09/22/20 12:00 Pulse Ox 95 09/22/20 12:00 Body Mass Index 24.2 Const: General: cooperative Orientation/consciousness: oriented to person, oriented to place and oriented to time HENMT: Head: Yes normal to inspection Mouth: Normal oral and palatal mucosa present Eyes: General: appearance normal, both eyes and all related structures Resp: Effort & Inspection: normal respiratory effort Cardio: Rate: regular rate Rhythm: regular rhythm GI: Palpation (GI): Soft to palpation and nontender Skin: General skin exam: no rashes or lesions noted Neuro: General: oriented to person, oriented to place and oriented to time Extrem: General: Yes normal to inspection Assessment and Plan (1) COVID-19: Problem details: She is on room air She has no oxygenation concerns Status: Acute Would continue support as needed No indication Remdesivir,steroids can be used (2) Acute renal failure: Qualifiers: Acute renal failure type: with acute tubular necrosis Qualified Code(s): N17.0 - Acute kidney failure with tubular necrosis Status: Acute Results Labs CBC & Chem 7: 09/21/20 05:59 09/22/20 06:15 Labs: BMP 09/21/20 09/21/20 09/22/20 16:20 17:24 06:15 Sodium 134 L 135 Potassium 6.3 H* 5.6 H 5.6 H Chloride 101 102 Carbon Dioxide 22 17 L BUN 59 H Creatinine 1.51 H Calcium 8.2 L Microbiology Microbiology Results: Microbiology 09/20/20 05:09 Blood - Venous Blood Culture - Preliminary No growth after 48 hours. 09/20/20 04:58 Blood - Venous Blood Culture - Preliminary No growth after 48 hours.
--- NOTE | 2020-09-22 17:44 | P.CONNP_ITS ---
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 HTN (hypertension) with goal to be determined Seborrheic keratoses Family History Family History Father History of myocardial infarction Mother History of myocardial infarction Sister History of lymphoma Daughter History of fibromyalgia History of diabetes mellitus, type II Paternal Grandfather History of heart failure Maternal Grandfather History of heart failure Maternal Grandmother History of heart failure Surgical History Surgical History History of abdominoplasty History of appendectomy History of bilateral salpingo-oophorectomy History of cholecystectomy History of hernia repair History of ileostomy History of laparotomy (~1970) History of tonsillectomy and adenoidectomy Social History Social History Alcohol intake: never Smoking Status: Former smoker Use of substances other than those prescribed or required for medical reasons: No Currently Displaying Signs/Symptoms of Drug Intoxication Withdrawal: No Advance Directives: No Advance Directives Information Provided: No Do you have thoughts of harming others: None Do you have a plan to hurt others: No Plan service: No Current occupational status: retired Meds Allergies Allergy/AdvReac Type Severity Reaction Status Date / Time Iodinated Contrast Media Allergy Severe ANAPHYLAXIS, Verified 09/20/20 04:29 ITCHY EYES methadone [METHADONE] Allergy Intermediate AGITATED Verified 09/20/20 04:29 zolpidem [From AMBIEN] Allergy Intermediate EXTREMELY Verified 09/20/20 04:29 ANXIOUS belladonna alkaloids Allergy Mild UNKNOWN Verified 09/20/20 04:29 halothane Allergy Mild UNKNOWN Verified 09/20/20 04:29 morphine Allergy Mild HIVES, Verified 09/20/20 04:29 AGITATION pentazocine Allergy Mild HIVES Verified 09/20/20 04:29 Sulfa (Sulfonamide Allergy Mild HIVES, N/V Verified 09/20/20 04:29 Antibiotics) , ITCHING codeine [Codeine] Allergy Unknown HIVES Verified 09/20/20 04:29 Halothane Allergy Unknown Unknown Verified 09/20/20 04:29 Home Medications Medication Instructions Recorded Confirmed Type amlodipine 5 mg tablet 10 mg PO DAILY 06/21/20 09/20/20 History insulin detemir U-100 100 unit/mL 20 unit SUBCUT DAILY 06/21/20 09/20/20 History (3 mL) subcutaneous pen metoprolol succinate 50 mg 50 mg PO DAILY 06/21/20 09/20/20 History tablet,extended release 24 hr nystatin 100,000 unit/gram topical 1 appl TOPICAL BID 06/21/20 09/20/20 History ointment albuterol sulfate 90 mcg/actuation 2 puff PO Q6H PRN 07/31/20 09/20/20 History aerosol inhaler blood sugar diagnostic #10 ea 07/31/20 History lancets #100 ea 07/31/20 History pen needle, diabetic 31 gauge x #50 ea 07/31/20 History 3/16 oxybutynin chloride 5 mg tablet 5 mg PO BEDTIME 08/25/20 09/20/20 History insulin detemir U-100 [Levemir 15 unit SUBCUT BEDTIME 09/20/20 09/20/20 History FlexTouch U-100 Insuln] simvastatin 1 tab PO DAILY 09/20/20 09/20/20 History sodium bicarbonate 1 tab PO BID 09/20/20 09/20/20 History tramadol 1 - 2 tab PO Q6H PRN 09/20/20 09/20/20 History Physical Exam Vital Signs: Last Vital Signs Temp 97.6 F 09/22/20 16:00 Pulse 68 09/22/20 16:00 Resp 18 09/22/20 16:00 BP 134/63 09/22/20 16:00 Pulse Ox 95 09/22/20 12:00 Body Mass Index 24.2 Const General: alert Orientation/consciousness: patient oriented x3 Neck Neck: Yes supple Resp Auscultation: diminished lung sounds Cardio Rate: regular rate GI Palpation (GI): Soft to palpation Neuro General: patient oriented x3 Results Lab Results Result Diagrams: 09/21/20 05:59 09/22/20 06:15 Lab results: Chemistry 09/20/20 09/20/20 09/21/20 04:58 16:22 05:59 Sodium 127 L 132 L 134 L Potassium 5.8 H 5.7 H 5.9 H Carbon Dioxide 18 L 20 L 16 L BUN 61 H D 59 H 61 H Creatinine 2.73 H 2.31 H 1.79 H Calcium 8.1 L 7.7 L 8.0 L 09/21/20 09/21/20 09/22/20 16:20 17:24 06:15 Sodium 134 L 135 Potassium 6.3 H* 5.6 H 5.6 H Carbon Dioxide 22 17 L BUN 59 H Creatinine 1.51 H Calcium 8.2 L Hematology 09/20/20 09/21/20 04:58 05:59 WBC 5.6 5.9 Hgb 13.8 13.7 Plt Count 212 228 Urinalysis 09/20/20 05:16 Urine Color YELLOW Urine Appearance CLEAR Urine pH 5.5 Ur Specific Cabins >= 1.030 H Urine Protein NEG Urine Glucose (UA) >=1000 H Urine Ketones NEG Urine Blood NEG Urine Nitrite NEG Ur Leukocyte Esterase NEG Urine RBC 0-2 Urine WBC 0 Ur Squamous Epith Cells TRACE Hyaline Casts 5-9 Assessment and Plan (1) Acute hyperkalemia: Problem details: Had ELIZA due to compromised renal perfusion Had hyperkalemia with ELIZA; Renal functions improved and close to baseline Metabolically acidotic. On NaHCO3; Low K diet; Kayexalate 30 Gm three times a week and PRN Labs AM. Shall closely follow up Status: Acute
[2020-09-22 20:00] VITALS: BP 134/81; PULSE 73; RESP 14; TEMP 36.3; O2SAT 96
[2020-09-22] MEDS: Nystatin Ointment 15 GM TUBE 1 APPL TOPICAL (21:09)
[2020-09-22 21:13] LABS: Glucose, Whole Blood 336 mg/dL (60-115)
[2020-09-22] MEDS: Insulin Glargine,Hum.rec.anlog 100 UNIT/ML 10 ML VIAL 10 UNIT SUBCUT (21:13)
[2020-09-22 23:32] VITALS: BP 128/65; PULSE 68; RESP 12; TEMP 36.7; O2SAT 96
[2020-09-23] MEDS: 0.9 % Sodium Chloride Flush 3 ML SYRINGE IVFLUSH ×2 (00:20→08:58)
[2020-09-23 03:25] VITALS: BP 122/72; PULSE 63; RESP 14; TEMP 36.7; O2SAT 98
[2020-09-23 07:21] LABS: Glucose, Whole Blood 213 mg/dL (60-115)
[2020-09-23 08:00] VITALS: BP 156/63; PULSE 67; RESP 18; TEMP 35.9; O2SAT 97
[2020-09-23] MEDS: dexAMETHasone sod phosphate 4 MG/ML VIAL 6 MG IVPUSH (08:38)
[2020-09-23] MEDS: Atorvastatin Calcium 10 MG TABLET PO (08:38)
[2020-09-23] MEDS: Apixaban 5 MG TABLET PO (08:38)
[2020-09-23] MEDS: Sodium Bicarbonate 650 MG TABLET PO (08:38)
[2020-09-23] MEDS: Insulin Glargine,Hum.rec.anlog 100 UNIT/ML 10 ML VIAL 14 UNIT SUBCUT (08:39)
[2020-09-23] MEDS: Insulin Lispro 100 UNIT/ML 3 ML VIAL SUBCUT ×2 (08:39→11:57)
[2020-09-23] MEDS: Nystatin Ointment 15 GM TUBE 1 APPL TOPICAL (08:40)
[2020-09-23 09:05] LABS: Anion Gap 14 (12-20); Blood Urea Nitrogen 53 mg/dL (9-16); Carbon Dioxide 24 mmol/L (22-29); Chloride 103 mmol/L (96-108); Creatinine Clr Calc Pharmacy 26.4; Estimated Glomerular Filt Rate 39; Glucose Random 247 mg/dL (60-115); Sodium 136 mmol/L (135-145)
[2020-09-23 09:13] LABS: Calcium 7.8 mg/dL (8.4-10.2)
--- NOTE | 2020-09-23 09:18 | P.DS_ITS ---
DS: Providers Provider Date of admission: 09/20/20 11:52 Primary care physician: Unknown Physician Consults: 09/20/20 15:26 Consult to Infectious Diseases Routine Consulting Provider: Marcella Johnson Reason for consultation: covid 19 Has provider been notified: No 09/22/20 09:32 Consult to Nephrology Routine Consulting Provider: [facility] [place] Reason for consultation: CKD, Tamar K Has provider been notified: No DS: Diagnosis Discharge Diagnosis (1) Acute hyperkalemia: Status: Resolved Problem details: Had ELIZA due to compromised renal perfusion Had hyperkalemia with ELIZA; Renal functions improved and close to baseline Metabolically acidotic. On NaHCO3; Low K diet; Kayexalate 30 Gm three times a week and PRN Labs AM. Shall closely follow up DS: Medications Discharge Medications Home Medications: Home Medications Medication Instructions Recorded Confirmed amlodipine 5 mg tablet 10 mg PO DAILY 06/21/20 09/20/20 insulin detemir U-100 100 unit/mL 20 unit SUBCUT DAILY 06/21/20 09/20/20 (3 mL) subcutaneous pen metoprolol succinate 50 mg 50 mg PO DAILY 06/21/20 09/20/20 tablet,extended release 24 hr nystatin 100,000 unit/gram topical 1 appl TOPICAL BID 06/21/20 09/20/20 ointment albuterol sulfate 90 mcg/actuation 2 puff PO Q6H PRN 07/31/20 09/20/20 aerosol inhaler blood sugar diagnostic #10 ea 07/31/20 lancets #100 ea 07/31/20 pen needle, diabetic 31 gauge x #50 ea 07/31/20/ oxybutynin chloride 5 mg tablet 5 mg PO BEDTIME 08/25/20 09/20/20 insulin detemir U-100 [Levemir 15 unit SUBCUT BEDTIME 09/20/20 09/20/20 FlexTouch U-100 Insuln] simvastatin 1 tab PO DAILY 09/20/20 09/20/20 sodium bicarbonate 1 tab PO BID 09/20/20 09/20/20 tramadol 1 - 2 tab PO Q6H PRN 09/20/20 09/20/20 Previous Rx's Medication Instructions Recorded apixaban 5 mg tablet 5 mg PO BID #60 tab 07/31/20 blood sugar diagnostic #100 ea 08/26/20 blood-glucose meter #1 ea 08/26/20 lancets #100 ea 08/26/20 DS: Summary Hospital Course Hospital Course: HPI: 84-year-old woman, presents to the ER with complaints of worsening shortness of breath over the last 3 weeks. She does have a history of COPD, non-oxygen dependent. She reports that she was having cough with green phlegm and over the last couple of days, body aches and decrease in appetite. She denies any fever, chills, nausea, vomiting, diarrhea. She lives alone and did not have any contact with any COVID positive people. In the ER, she was noted to be hypoxic with oxygen saturation of 89%. She was placed on 2 L, and she did improve significantly. Respiratory rate was high as well. She did have a COVID test on August 21, that was negative. Today, it was positive. Chest CT showed no significant changes and no pneumonia. She was noted to have some lab abnormalities including sodium of 127, potassium of 5.8, creatinine 2.73 with a history of CKD. Her blood sugar was elevated as well at 424. She also received a dose of steroids in the ER. She will be admitted for further management and treatment of acute hypoxic respiratory failure secondary to covid 19 Hospital course 1. Acute hypoxic respiratory failure due to covid 19--Since admission, oxygen level has been within normal and has been on room. Has been on Decadron and will treat for 10 days. No indication for remdesevir 2. ELIZA on CKD--this has improved with IVF 3. 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 On was given Kayexalate and now level within normal. Nephrology advises Kayexlate 30 gram 3 times a week 5. Diabetes--Blood sugars are better -continue Lantus 6. HLD--Lipitor 7. AFIB--rate controlled on Metoprolol, Eliquis for anticoagulation Time Spent with Patient Time attestation: Total time spent providing and/or coordinating discharge services: Physical Exam Vital Signs: Vital Signs: Last Vital Signs Temp 96.6 F L 09/23/20 08:00 Pulse 67 09/23/20 08:00 Resp 18 09/23/20 08:00 BP 156/63 H 09/23/20 08:00 Pulse Ox 97 09/23/20 08:00 Body Mass Index 24.2 General: AO X 3, no acute distress Resp: normal respitory effort CVS: S1,S2,RRR GI: +BS, NT, no distention Skin: No rash Neuro: motor grossly intact Psych: appropriate affect DS: Data Data Completed and Pending Labs on day of discharge: 09/20/20 04:33 Glucose, Whole Blood Routine 09/20/20 04:41 ECG 12 lead EKG Stat EKG Documentation DIRECTED 09/20/20 04:49 ECG 12 lead EKG Stat EKG Documentation DIRECTED XR chest 1V Stat 09/20/20 04:51 Insulin Lispro [Humalog] 10 unit SUBCUT ONCE ONE 09/20/20 04:58 B Type Natriuretic Peptide Stat Complete Blood Count Auto Diff Stat Comprehensive Met. Panel Stat D Dimer Stat Lactic Acid Stat Partial Thromboplastin Time Stat Prothrombin Time INR Stat SARS-CoV2/FLU/RSV Stat Troponin-I High Sensitivity Stat 09/20/20 05:00 0.9 % Sodium Chloride [Ns] 1,000 ml IVCONT 999 mls/hr 09/20/20 05:03 Albuterol Sulfate (0.083%) [Ventolin (0.083%)] 5 mg INHALE ONCE ONE Albuterol/Iprat 2.5/0.5MG 3 ML [Duoneb] 3 ml INHALE ONCE ONE dexAMETHasone Sod Phosphate/PF [Decadron] 10 mg IVPUSH ONCE ONE 09/20/20 05:30 ED Diet NOW 09/20/20 06:10 Sodium Polystyrene Sulfon/Sorb [Kayexalate] 30 gm PO ONCE ONE 09/20/20 06:12 cefTRIAXone sodium [Rocephin] 1 gm 0.9 % Sodium Chloride [Ns] 50 ml IV ONCE 09/20/20 06:15 Azithromycin [Zithromax] 500 mg 0.9 % Sodium Chloride [Ns] 250 ml IV ONCE 09/20/20 06:32 cefTRIAXone sodium [Rocephin] 1 gm .ROUTE .STK-MED ONE 09/20/20 07:13 CT chest wo con Stat 09/20/20 08:04 Azithromycin [Zithromax] 500 mg IV .STK-MED ONE 09/20/20 10:42 Glucose, Whole Blood Routine 09/20/20 11:28 Transfer Order Routine 09/20/20 15:26 methylPREDNISolone Sod Succ/PF [SOLU-MedroL] 40 mg IVPUSH Q8H 09/20/20 16:00 Azithromycin [Zithromax] 500 mg 0.9 % Sodium Chloride [Ns] 250 ml IV Q24H 09/20/20 16:22 Basic Metabolic Panel Routine 09/20/20 16:42 Azithromycin [Zithromax] 500 mg IV .STK-MED ONE 09/20/20 17:36 Insulin Lispro [Humalog] 5 unit SUBCUT ONCE ONE 09/20/20 20:35 Glucose, Whole Blood Routine 09/20/20 20:53 Insulin Lispro [Humalog] 10 unit SUBCUT ONCE ONE 09/21/20 ECG 12 lead EKG Stat 09/21/20 05:06 Glucose, Whole Blood Routine 09/21/20 05:59 Basic Metabolic Panel DAILY@0600 Complete Blood Count Auto Diff DAILY@0600 SLIDE REVIEW Routine 09/21/20 07:04 Sodium Polystyrene Sulfon/Sorb [Kayexalate] 30 gm PO ONCE ONE 09/21/20 07:12 Glucose, Whole Blood Routine 09/21/20 08:43 ECG 12 lead EKG Routine 09/21/20 09:00 Metoprolol Succinate ER [Toprol XL] 50 mg PO DAILY 09/21/20 11:18 Glucose, Whole Blood Routine 09/21/20 16:20 Electrolytes Routine 09/21/20 16:53 Glucose, Whole Blood Routine 09/21/20 17:10 EKG Documentation DIRECTED 09/21/20 17:24 Potassium Stat 09/21/20 18:14 Sodium Polystyrene Sulfon/Sorb [Kayexalate] 15 gm PO ONCE ONE 09/21/20 20:06 Glucose, Whole Blood Routine 09/22/20 06:15 Basic Metabolic Panel DAILY@0600 09/22/20 07:22 Glucose, Whole Blood Routine 09/22/20 08:44 EKG Documentation DIRECTED 09/22/20 09:28 Sodium Polystyrene Sulfon/Sorb [Kayexalate] 30 gm PO ONCE ONE 09/22/20 11:06 Glucose, Whole Blood Routine 09/22/20 15:59 Glucose, Whole Blood Routine 09/22/20 21:07 Glucose, Whole Blood Routine 09/23/20 07:16 Glucose, Whole Blood Routine 09/23/20 08:27 Basic Metabolic Panel Routine Laboratory Last Values WBC 5.9 X10*3/uL (4.8-10.8) 09/21/20 05:59 RBC 4.80 X10*6/uL (4.20-5.50) 09/21/20 05:59 Hgb 13.7 g/dl (12.0-16.0) 09/21/20 05:59 Hct 42.4 % (37-47) 09/21/20 05:59 MCV 88.3 fL (80-98) 09/21/20 05:59 MCH 28.5 pg (27.0-33.0) 09/21/20 05:59 MCHC 32.3 g/dl (31.0-35.0) 09/21/20 05:59 RDW 13.0 % (11.0-16.0) 09/21/20 05:59 Plt Count 228 X10*3/uL (160-400) 09/21/20 05:59 MPV 9.7 fL (9.4-12.3) 09/21/20 05:59 Immature Gran % (Auto) 0.8 % (0.0-0.4) H 09/21/20 05:59 Neut % (Auto) 86.1 % (45-73) H 09/21/20 05:59 Lymph % (Auto) 9.9 % (20-40) L 09/21/20 05:59 [place] % (Auto) 3.2 % (2-11) 09/21/20 05:59 Eos % (Auto) 0.0 % (0-4) 09/21/20 05:59 Baso % (Auto) 0.0 % (0-2) 09/21/20 05:59 Lymph # (Auto) 0.6 X10*3/uL (1.2-4.9) L 09/21/20 05:59 [place]eline # (Auto) 0.2 X10*3/uL (0.1-1.2) 09/21/20 05:59 Eos # (Auto) 0.0 X10*3/uL (0.0-0.4) 09/21/20 05:59 Baso # (Auto) 0.0 X10*3/uL (0.0-0.2) 09/21/20 05:59 Abs Immat Gran (auto) 0.05 X10*3/uL (0.00-0.03) H 09/21/20 05:59 Absolute Neuts (auto) 5.1 X10*3/uL (2.0-8.3) 09/21/20 05:59 Absolute Nucleated RBC 0.000 X10*3/uL (0.0-0.012) 09/21/20 05:59 Nucleated RBC % (auto) 0.0 /100WBC (0.0-0.2) 09/21/20 05:59 Smear Tech's Comments VERIFIED 09/21/20 05:59 PT 18.6 SEC (10.8-13.0) H 09/20/20 04:58 INR 1.6 (0.9-1.1) H 09/20/20 04:58 APTT 32.1 SEC (24.1-38.0) 09/20/20 04:58 D-Dimer < 200 NG/ML 09/20/20 04:58 Sodium 136 mmol/L (135-145) 09/23/20 08:27 Potassium 5.0 mmol/l (3.3-5.1) 09/23/20 08:27 Chloride 103 mmol/L (96-108) 09/23/20 08:27 Carbon Dioxide 24 mmol/L (22-29) 09/23/20 08:27 Anion Gap 14 (12-20) 09/23/20 08:27 BUN 53 mg/dL (9-16) H 09/23/20 08:27 Creatinine 1.30 mg/dL (0.5-1.4) 09/23/20 08:27 Estim Creat Clear Calc 26.4 09/23/20 08:27 Estimated GFR 39 09/23/20 08:27 POC Glucose 213 mg/dL (60-115) H 09/23/20 07:16 Random Glucose 247 mg/dL (60-115) H 09/23/20 08:27 Lactic Acid 1.4 mmol/L (0.5-2.0) 09/20/20 04:58 Calcium 7.8 mg/dL (8.4-10.2) L 09/23/20 08:27 Total Bilirubin 0.3 mg/dL (0.0-1.0) 09/20/20 04:58 AST 16 U/L (5-31) 09/20/20 04:58 ALT 19 U/L (0-31) 09/20/20 04:58 Alkaline Phosphatase 81 U/L (39-117) 09/20/20 04:58 Troponin I High Sens 12.9 ng/L (<3.5-17.0) 09/20/20 04:58 B-Natriuretic Peptide 67 pg/mL (<100) 09/20/20 04:58 Total Protein 6.7 g/dL (6.5-8.0) 09/20/20 04:58 Albumin 3.9 g/dL (3.5-5.0) 09/20/20 04:58 Urine Color YELLOW 09/20/20 05:16 Urine Appearance CLEAR 09/20/20 05:16 Urine pH 5.5 (5.0-8.0) 09/20/20 05:16 Ur Specific [place] >= 1.030 (1.005-1.025) H 09/20/20 05:16 Urine Protein NEG MG/DL (NEG-TRACE) 09/20/20 05:16 Urine Glucose (UA) >=1000 MG/DL (NEG) H 09/20/20 05:16 Urine Ketones NEG MG/DL (NEG) 09/20/20 05:16 Urine Blood NEG (NEG) 09/20/20 05:16 Urine Nitrite NEG (NEG) 09/20/20 05:16 Ur Leukocyte Esterase NEG (NEG) 09/20/20 05:16 Urine RBC 0-2 /HPF (0) 09/20/20 05:16 Urine WBC 0 /HPF (0-4) 09/20/20 05:16 Ur Squamous Epith Cells TRACE /LPF 09/20/20 05:16 Amorphous Sediment TRACE /LPF 09/20/20 05:16 Urine Bacteria NONE /LPF 09/20/20 05:16 Hyaline Casts 5-9 /LPF 09/20/20 05:16 Coronavirus (PCR) POSITIVE (Negative) A 09/20/20 04:58 Influenza Type A (PCR) NEGATIVE (Negative) 09/20/20 04:58 Influenza Type B (PCR) NEGATIVE (Negative) 09/20/20 04:58 RSV RNA Qual (PCR) NEGATIVE (Negative) 09/20/20 04:58 Preliminary micro results at discharge 09/20/20 05:09 Blood Culture - Preliminary Blood - Venous No growth after 48 hours. 09/20/20 04:58 Blood Culture - Preliminary Blood - Venous No growth after 48 hours. Discharge Plan Discharge Anticipated Discharge Date/Time: 09/23/20 09:08 Patient Disposition: Home Health Service Referrals: [facility] [Outside] (Resume existing services - RN and PT visits - [phone]. ) Physician,Unknown [Primary Care Provider] - Discharge Medications: Continued apixaban 5 mg tablet 5 mg PO BID Qty: 60 RF: 1 (DME) Accu-Chek Rema Plus test strp Strip See Rx Instructions .ROUTE .MEDSUPPLY Qty: 100 RF: 1 (DME) lancets [Accu-Chek Softclix Lancets] Misc See Rx Instructions .ROUTE .MEDSUPPLY Qty: 100 RF: 0 (DME) blood-glucose meter [Accu-Chek Rema Plus Meter] Misc See Rx Instructions .ROUTE .MEDSUPPLY Qty: 1 RF: 0 Levemir FlexTouch U-100 Insuln 100 unit/mL (3 mL) insulin pen 15 unit subcut BEDTIME RF: 0 simvastatin 10 mg tablet 10 mg PO BEDTIME RF: 0 sodium bicarbonate 650 mg tablet 650 mg PO BID RF: 0 (DME) blood sugar diagnostic Strip See Rx Instructions ea Not Applicable QID Qty: 10 RF: 0 (DME) lancets Misc See Rx Instructions ea topical QID Qty: 100 RF: 0 (DME) pen needle, diabetic 31 gauge x 3/16 needle See Rx Instructions ea .ROUTE .MEDSUPPLY Qty: 50 RF: 0 albuterol sulfate 90 mcg/actuation HFA aerosol inhaler 2 puff PO Q6H PRN (Reason: Dyspnea) RF: 0 metoprolol succinate 50 mg tablet extended release 24 hr 50 mg PO DAILY RF: 0 nystatin 100,000 unit/gram ointment 1 appl topical BID RF: 0 insulin detemir U-100 100 unit/mL (3 mL) insulin pen 20 unit subcut DAILY RF: 0 No Action sodium polystyrene sulfonate Powder 30 g PO MOWEFR@1000 RF: 0 amlodipine 10 mg Tablet 10 mg PO DAILY RF: 0 cefuroxime axetil 250 mg tablet 500 mg PO BID 7 Days Qty: 28 RF: 0 prednisone 20 mg tablet 20 mg PO DAILY 4 Days Qty: 4 RF: 0 Discharge Orders: Discharge Order (Routine); Ordered 09/23/20 Ordered By: Maxwell Orlando Diet: advance to usual diet Activity on Discharge: As tolerated Visit Report Forms: Patient Portal Discharge page Care Plan Goals: Full recovery from covid Health Concerns: covid 19 Plan of Treatment: Take Dexamethasone as directed and follow isolation direction. Take Kayexalate to reduce potassium. Follow up with your Docotor in a week, call for appoinbtment Follow CDC guideline for self isolation for 10 days from onset of symptoms. Discharge Date/Time: 09/23/20 14:01
[2020-09-23 11:26] VITALS: BP 145/71; PULSE 60; RESP 22; TEMP 36.2; O2SAT 98
[2020-09-23 11:36] LABS: Glucose, Whole Blood 281 mg/dL (60-115)
--- NOTE | 2020-09-23 11:38 | MHC.CM.PN ---
Met with pt to review d/c plan: Pt resides alone and has very few supports. A grandson (her HCP on file) is her only family and [place]. She is active with [facility]. Pt is able to transfer independently and feels comfortable managing her care needs at home. Discussed STR options to which she declined. Pt has no transportation home: She states she has no family in the area or friends that would be able to assist her. Call placed to Security: [employer] shuttle is unable to transport COVID + pts: Discussed BLS transportation with pt and the financial cost which she may accrue. Pt verbalized understanding. D/C plan is for a return to home with existing [facility] (notified via [employer]) with [facility].
== END 2020-09-23 14:01 | disposition home health service (06) | DRG 177 ==
LOC: HO.ED 07:08 → HO.ISO 13:27
PROVIDERS: Nurse Practitioner Acute Care; Admitting Provider Internal Medicine; Emergency Provider Internal Medicine; PCP Internal Medicine; Visit Provider Internal Medicine
DX: U07.1 COVID-19 (principal); N17.0 Acute kidney failure with tubular necrosis; J96.01 Acute respiratory failure with hypoxia; J44.1 Chronic obstructive pulmonary disease with (acute) exacerbation; E87.5 Hyperkalemia; I12.9 Hypertensive chronic kidney disease with stage 1 through stage 4 chronic kidney disease, or unspecified chronic kidney disease; E11.22 Type 2 diabetes mellitus with diabetic chronic kidney disease; N18.9 Chronic kidney disease, unspecified; I48.91 Unspecified atrial fibrillation; Z88.2 Allergy status to sulfonamides; Z88.5 Allergy status to narcotic agent; Z79.4 Long term (current) use of insulin; Z79.01 Long term (current) use of anticoagulants; Z79.891 Long term (current) use of opiate analgesic; Z79.899 Other long term (current) drug therapy
CPT/HCPCS: 0241U; 36415; 71045; 71250; 80048; 80051; 80053; 81001; 82947; 83605; 83880; 84132; 84484; 85025; 85379; 85610; 85730; 87040; 93005; 94640; 94644; 96361; 96365; 96366; 96367; 96375; 99285; J0456; J0696; J1100; J2920

== ENCOUNTER 2020-10-06 04:40 | Emergency (ER) | payer MEDICARE, SELFPAY ==
[2020-10-06 04:47] VITALS: BP 153/59; PULSE 72; RESP 16; TEMP 36.7; O2SAT 94; BMI 23.8
--- NOTE | 2020-10-06 04:51 | ECG_ITS ---
Test Reason : FALL Blood Pressure : / mmHG Vent. Rate : 068 BPM Atrial Rate : 068 BPM P-R Int : 110 ms QRS Dur : 092 ms QT Int : 412 ms P-R-T Axes : 071 044 048 degrees QTc Int : 438 ms Sinus rhythm with short [place] Otherwise normal ECG When compared with ECG of 22-SEP-2020 10:35, Nonspecific T wave abnormality now evident in Anterior leads Referred By: Petty Carney Electronically Signed By:GABRIELLE SANCHEZ
--- NOTE | 2020-10-06 05:47 | XR_ITS ---
EXAMINATION: XR KNEE, LEFT CLINICAL INFORMATION: fall, pain COMPARISON: None TECHNIQUE: AP, lateral, and both oblique views of the left knee. FINDINGS: Bones are osteopenic. No acute fracture or malalignment. Soft tissues are swollen with associated subcutaneous edema, most pronounced anteromedially. No lipohemarthrosis or joint effusion. Mild medial and patellofemoral compartment osteoarthritis. XR/XR knee LT 4V IMPRESSION: No acute fracture or malalignment. Soft tissue swelling and subcutaneous edema.
--- NOTE | 2020-10-06 05:49 | ED.FALL ---
HPI - Fall General Chief Complaint: Fall Stated Complaint: fall Time Seen by Provider: 10/06/20 04:51 Source: patient Mode of arrival: EMS History of Present Illness HPI Narrative: This is an 84-year-old female who states that ?her legs just gave out? causing her to fall onto her knees and experiencing difficulty in standing. She denies hitting her head or loss of consciousness as well as denying any dizziness, headache, shortness of breath, chest pain/palpitations. On review of documentation this patient has recently been discharged and was noted to be COVID-19 positive on 09/20/2020. Related Data Home Medications Medication Instructions Recorded Confirmed amlodipine 5 mg tablet 10 mg PO DAILY 06/21/20 09/20/20 insulin detemir U-100 100 unit/mL 20 unit SUBCUT DAILY 06/21/20 09/20/20 (3 mL) subcutaneous pen metoprolol succinate 50 mg 50 mg PO DAILY 06/21/20 09/20/20 tablet,extended release 24 hr nystatin 100,000 unit/gram topical 1 appl TOPICAL BID 06/21/20 09/20/20 ointment albuterol sulfate 90 mcg/actuation 2 puff PO Q6H PRN 07/31/20 09/20/20 aerosol inhaler blood sugar diagnostic #10 ea 07/31/20 lancets #100 ea 07/31/20 pen needle, diabetic 31 gauge x #50 ea 07/31/2012/02 oxybutynin chloride 5 mg tablet 5 mg PO BEDTIME 08/25/20 09/20/20 Levemir FlexTouch U-100 Insuln 15 unit SUBCUT BEDTIME 09/20/20 09/20/20 simvastatin 1 tab PO DAILY 09/20/20 09/20/20 sodium bicarbonate 1 tab PO BID 09/20/20 09/20/20 tramadol 1 - 2 tab PO Q6H PRN 09/20/20 09/20/20 Previous Rx's Medication Instructions Recorded apixaban 5 mg tablet 5 mg PO BID #60 tab 07/31/20 blood sugar diagnostic #100 ea 08/26/20 blood-glucose meter #1 ea 08/26/20 lancets #100 ea 08/26/20 dexamethasone [Decadron] 6 mg PO DAILY #6 tab 09/23/20 sodium polystyrene sulfonate See Rx Instructions .ROUTE 09/23/20 .COMPLEX #454 g Allergies Allergy/AdvReac Type Severity Reaction Status Date / Time Iodinated Contrast Media Allergy Severe ANAPHYLAXIS, Verified 09/20/20 04:29 ITCHY EYES methadone [METHADONE] Allergy Intermediate AGITATED Verified 09/20/20 04:29 zolpidem [From AMBIEN] Allergy Intermediate EXTREMELY Verified 09/20/20 04:29 ANXIOUS belladonna alkaloids Allergy Mild UNKNOWN Verified 09/20/20 04:29 halothane Allergy Mild UNKNOWN Verified 09/20/20 04:29 morphine Allergy Mild HIVES, Verified 09/20/20 04:29 AGITATION pentazocine Allergy Mild HIVES Verified 09/20/20 04:29 Sulfa (Sulfonamide Allergy Mild HIVES, N/V Verified 09/20/20 04:29 Antibiotics) , ITCHING codeine [Codeine] Allergy Unknown HIVES Verified 09/20/20 04:29 Halothane Allergy Unknown Unknown Verified 09/20/20 04:29 Review of Systems Review of Systems: Pertinent positives and negatives stated in HPI 10 point review of systems otherwise negative [facility] Past Medical History Source: nursing notes reviewed Medical History COPD (chronic obstructive pulmonary disease) Crohn's disease 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 Emphysema lung Erythema intertrigo HTN (hypertension) with goal to be determined Seborrheic keratoses Surgical History History of abdominoplasty History of appendectomy History of bilateral salpingo-oophorectomy History of cholecystectomy History of hernia repair History of ileostomy History of laparotomy (~1970) History of tonsillectomy and adenoidectomy Family History Family History Father History of myocardial infarction Mother History of myocardial infarction Sister History of lymphoma Daughter History of fibromyalgia History of diabetes mellitus, type II Paternal Grandfather History of heart failure Maternal Grandfather History of heart failure Maternal Grandmother History of heart failure Social History Social History Alcohol intake: never Smoking Status: Former smoker Advance Directives: No Advance Directives Information Provided: No service: No Current occupational status: retired Physical Exam Vital Signs: Vital Signs: Last Vital Signs Temp 98.0 F 10/06/20 07:23 Pulse 72 10/06/20 07:23 Resp 16 10/06/20 07:23 BP 149/58 H 10/06/20 07:23 Pulse Ox 96 10/06/20 07:23 Body Mass Index 23.8 VITAL SIGNS: Reviewed. GENERAL: Well developed, well nourished, in no acute distress. HEAD: Normocephalic/atraumatic, EYES: PERRLA, EOMI EARS: Ext canals without abnormality NOSE: Nares patent bilateral OROPHARYNX: no oral lesions noted, posterior pharynx clear NECK: Supple, no adenopathy, no cervical tenderness on palpation LUNGS: Normal breath sounds. No adventitious sounds or accessory muscle use. SpO2<96> CARDIOVASCULAR: Regular rate and rhythm without noted murmurs, no JVD but bilateral lower extremity edema R>L with 1-2+ ABDOMEN: Soft, non-tender, non-distended with bowel sounds. MUSCULOSKELETAL: Bilateral minor abrasions to knees without deformities SKIN: Inspection of the skin reveals no rashes NEUROLOGIC: Alert and oriented x 4. Strength and sensation to light touch were grossly intact x 4. Course Course Course Narrative: This is an 84-year-old female with history and clinical presentation fall secondary to weakness recently discharged and at that time noted to be COVID-19 positive now on review of lab work there is a significant leukocytosis with a positive urinalysis. Patient will receive Rocephin here in the emergency department and then be re-evaluated for possible discharge on oral medications. Patient signed out to Dr Sainz: f/u CXR, PT/CM MDM - Fall Lab Data Result diagrams: 10/06/20 06:08 10/06/20 06:08 Labs: Lab Results 10/06/20 10/06/20 10/06/20 Range/Units 06:08 06:08 06:48 WBC 14.9 H (4.8-10.8) X10*3/uL RBC 3.87 L (4.20-5.50) X10*6/uL Hgb 11.2 L (12.0-16.0) g/dl Hct 36.1 L (37-47) % MCV 93.3 (80-98) fL MCH 28.9 (27.0-33.0) pg MCHC 31.0 (31.0-35.0) g/dl RDW 13.6 (11.0-16.0) % Plt Count 163 D (160-400) X10*3/uL MPV 9.3 L (9.4-12.3) fL Immature Gran % (Auto) 0.9 H (0.0-0.4) % Neut % (Auto) 90.2 H (45-73) % Lymph % (Auto) 3.3 L (20-40) % [place] % (Auto) 5.0 (2-11) % Eos % (Auto) 0.5 (0-4) % Baso % (Auto) 0.1 (0-2) % Lymph # (Auto) 0.5 L (1.2-4.9) X10*3/uL [place] # (Auto) 0.8 (0.1-1.2) X10*3/uL Eos # (Auto) 0.1 (0.0-0.4) X10*3/uL Baso # (Auto) 0.0 (0.0-0.2) X10*3/uL Abs Immat Gran (auto) 0.13 H (0.00-0.03) X10*3/uL Absolute Neuts (auto) 13.5 H (2.0-8.3) X10*3/uL Absolute Nucleated RBC 0.000 (0.0-0.012) X10*3/uL Nucleated RBC % (auto) 0.0 (0.0-0.2) /100WBC Smear Tech's Comments VERIFIED PT (10.8-13.0) SEC INR (0.9-1.1) APTT (24.1-38.0) SEC Sodium 138 (135-145) mmol/L Potassium 4.9 (3.3-5.1) mmol/l Chloride 104 (96-108) mmol/L Carbon Dioxide 27 (22-29) mmol/L Anion Gap 12 (12-20) BUN 22 H D (9-16) mg/dL Creatinine 1.13 (0.5-1.4) mg/dL Estim Creat Clear Calc 30.3 Estimated GFR 46 Random Glucose 130 H D (60-115) mg/dL Calcium 8.0 L (8.4-10.2) mg/dL Total Bilirubin 0.4 (0.0-1.0) mg/dL AST 32 H D (5-31) U/L ALT 32 H (0-31) U/L Alkaline Phosphatase 101 D (39-117) U/L B-Natriuretic Peptide 200 H (<100) pg/mL Total Protein 5.7 L (6.5-8.0) g/dL Albumin 3.5 (3.5-5.0) g/dL Urine Color Urine Appearance Urine pH (5.0-8.0) Ur Specific [place] (1.005-1.025) Urine Protein (NEG-TRACE) MG/DL Urine Glucose (UA) (NEG) MG/DL Urine Ketones (NEG) MG/DL Urine Blood (NEG) Urine Nitrite (NEG) Ur Leukocyte Esterase (NEG) 10/06/20 10/06/20 Range/Units 06:48 07:32 WBC (4.8-10.8) X10*3/uL RBC (4.20-5.50) X10*6/uL Hgb (12.0-16.0) g/dl Hct (37-47) % MCV (80-98) fL MCH (27.0-33.0) pg MCHC (31.0-35.0) g/dl RDW (11.0-16.0) % Plt Count (160-400) X10*3/uL MPV (9.4-12.3) fL Immature Gran % (Auto) (0.0-0.4) % Neut % (Auto) (45-73) % Lymph % (Auto) (20-40) % [place] % (Auto) (2-11) % Eos % (Auto) (0-4) % Baso % (Auto) (0-2) % Lymph # (Auto) (1.2-4.9) X10*3/uL [place] # (Auto) (0.1-1.2) X10*3/uL Eos # (Auto) (0.0-0.4) X10*3/uL Baso # (Auto) (0.0-0.2) X10*3/uL Abs Immat Gran (auto) (0.00-0.03) X10*3/uL Absolute Neuts (auto) (2.0-8.3) X10*3/uL Absolute Nucleated RBC (0.0-0.012) X10*3/uL Nucleated RBC % (auto) (0.0-0.2) /100WBC Smear Tech's Comments PT 30.7 H D (10.8-13.0) SEC INR 2.6 H (0.9-1.1) APTT 32.8 (24.1-38.0) SEC Sodium (135-145) mmol/L Potassium (3.3-5.1) mmol/l Chloride (96-108) mmol/L Carbon Dioxide (22-29) mmol/L Anion Gap (12-20) BUN (9-16) mg/dL Creatinine (0.5-1.4) mg/dL Estim Creat Clear Calc Estimated GFR Random Glucose (60-115) mg/dL Calcium (8.4-10.2) mg/dL Total Bilirubin (0.0-1.0) mg/dL AST (5-31) U/L ALT (0-31) U/L Alkaline Phosphatase (39-117) U/L B-Natriuretic Peptide (<100) pg/mL Total Protein (6.5-8.0) g/dL Albumin (3.5-5.0) g/dL Urine Color YELLOW Urine Appearance TURBID Urine pH 5.5 (5.0-8.0) Ur Specific [place] >= 1.030 H (1.005-1.025) Urine Protein 2+ H (NEG-TRACE) MG/DL Urine Glucose (UA) 100 H (NEG) MG/DL Urine Ketones 5 (NEG) MG/DL Urine Blood 3+ H (NEG) Urine Nitrite POS H (NEG) Ur Leukocyte Esterase 2+ H (NEG) ECG Data Attestation: I personally reviewed and interpreted this ECG as follows: Prior ECG tracings: available for review Interpretation: Normal sinus rhythm, HR-68, no evidence of acute ischemia, QRS/QTC are within normal limits Discharge Plan Discharge Prescriptions: No [facility] apixaban 5 mg tablet 5 mg PO BID Qty: 60 RF: 1 (DME) Accu-Chek Rema Plus test strp Strip See Rx Instructions .ROUTE .MEDSUPPLY Qty: 100 RF: 1 (DME) lancets [Accu-Chek Softclix Lancets] Misc See Rx Instructions .ROUTE .MEDSUPPLY Qty: 100 RF: 0 (DME) blood-glucose meter [Accu-Chek Rema Plus Meter] Misc See Rx Instructions .ROUTE .MEDSUPPLY Qty: 1 RF: 0 tramadol 50 mg tablet 1 - 2 tab PO Q6H PRN (Reason: pain) RF: 0 Levemir FlexTouch U-100 Insuln 100 unit/mL (3 mL) insulin pen 15 unit subcut BEDTIME RF: 0 simvastatin 10 mg tablet 1 tab PO DAILY RF: 0 sodium bicarbonate 650 mg tablet 1 tab PO BID RF: 0 dexamethasone [Decadron] 6 mg tablet 6 mg PO DAILY Qty: 6 RF: 0 sodium polystyrene sulfonate Powder See Rx Instructions .ROUTE .COMPLEX Qty: 454 RF: 0 (DME) blood sugar diagnostic Strip See Rx Instructions ea Not Applicable QID Qty: 10 RF: 0 (DME) lancets Misc See Rx Instructions ea topical QID Qty: 100 RF: 0 (DME) pen needle, diabetic 31 gauge x 3/16 needle See Rx Instructions ea .ROUTE .MEDSUPPLY Qty: 50 RF: 0 albuterol sulfate 90 mcg/actuation HFA aerosol inhaler 2 puff PO Q6H PRN (Reason: Dyspnea) RF: 0 metoprolol succinate 50 mg tablet extended release 24 hr 50 mg PO DAILY RF: 0 nystatin 100,000 unit/gram ointment 1 appl topical BID RF: 0 amlodipine 5 mg tablet 10 mg PO DAILY RF: 0 insulin detemir U-100 100 unit/mL (3 mL) insulin pen 20 unit subcut DAILY RF: 0
[2020-10-06 06:15] LABS: Basophils Percent Auto 0.1 % (0-2); Eosinophils Absolute Auto 0.1 X10*3/uL (0.0-0.4); Eosinophils Percent Auto 0.5 % (0-4); Hematocrit 36.1 % (37-47); Hemoglobin 11.2 g/dl (12.0-16.0); Imm Gran Abs Auto 0.13 X10*3/uL (0.00-0.03); Imm Gran Pct Auto 0.9 % (0.0-0.4); Lymphocytes Absolute Auto 0.5 X10*3/uL (1.2-4.9); Lymphocytes Percent Auto 3.3 % (20-40); MANUAL DIFF FLAG SCAN; Mean Corpuscular Hemoglobin 28.9 pg (27.0-33.0); Mean Corpuscular Volume 93.3 fL (80-98); Mean Platelet Volume 9.3 fL (9.4-12.3); Monocytes Absolute Auto 0.8 X10*3/uL (0.1-1.2); Neutrophils Absolute Auto 13.5 X10*3/uL (2.0-8.3); Neutrophils Percent Auto 90.2 % (45-73); Platelet Count 163 X10*3/uL (160-400); Red Blood Count 3.87 X10*6/uL (4.20-5.50); Red Cell Distribution Width 13.6 % (11.0-16.0); SCAN SMEAR FLAG 1; White Blood Count 14.9 X10*3/uL (4.8-10.8)
[2020-10-06 06:37] LABS: SLIDE REVIEW VERIFIED
[2020-10-06 06:39] LABS: Alanine Aminotransferase 32 U/L (0-31); Albumin Level 3.5 g/dL (3.5-5.0); Alkaline Phosphatase 101 U/L (39-117); Anion Gap 12 (12-20); Aspartate Amino Transferase 32 U/L (5-31); Bilirubin Total 0.4 mg/dL (0.0-1.0); Blood Urea Nitrogen 22 mg/dL (9-16); Carbon Dioxide 27 mmol/L (22-29); Chloride 104 mmol/L (96-108); Creatinine Clr Calc Pharmacy 30.3; Estimated Glomerular Filt Rate 46; Glucose Random 130 mg/dL (60-115); Potassium 4.9 mmol/l (3.3-5.1); Sodium 138 mmol/L (135-145); Total Protein 5.7 g/dL (6.5-8.0)
[2020-10-06 07:02] LABS: INTERNATIONAL NORM RATIO 2.6 (0.9-1.1); Prothrombin Time 30.7 SEC (10.8-13.0)
[2020-10-06 07:05] LABS: Partial Thromboplastin Time 32.8 SEC (24.1-38.0)
[2020-10-06 07:23] VITALS: BP 149/58; PULSE 72; RESP 16; TEMP 36.7; O2SAT 96
[2020-10-06 07:38] LABS: B Type Natriuretic Peptide 200 pg/mL (<100)
[2020-10-06 07:39] LABS: Glucose Urine UA 100 MG/DL (NEG); Leukocyte Esterase Urine 2+ (NEG); Nitrite Urine POS (NEG); PH 5.5 (5.0-8.0); Specific Gravity - Urine >= 1.030 (1.005-1.025); Urine Blood 3+ (NEG); Urine Ketones 5 MG/DL (NEG); Urine Protein 2+ MG/DL (NEG-TRACE)
[2020-10-06 07:56] LABS: Appearance Urine TURBID; Color Urine YELLOW
[2020-10-06 08:09] LABS: Bacteria Urine 2+ /LPF; RBC Urine TNTC /HPF (0); Squamous Epithelial Cell Urine 1+ /LPF; WBC Urine TNTC /HPF (0-4)
--- NOTE | 2020-10-06 08:11 | XR_ITS ---
EXAMINATION: XR CHEST CLINICAL INFORMATION: Cough. COMPARISON: Chest 09/20/2020 TECHNIQUE: Frontal view of the chest was obtained. FINDINGS: Lungs are well-expanded with increased interstitial markings in both lungs without confluent infiltrate. The heart size and pulmonary vascularity is normal. There is mild spondylosis dorsal spine. No lytic process. XR/XR chest 1V IMPRESSION: Bilateral increase interstitial markings likely or interstitial pneumonitis. Slightly more prominent than the previous study.
[2020-10-06 08:40] LABS: Magnesium 1.6 mg/dL (1.6-2.6)
[2020-10-06 10:23] VITALS: BP 149/58; PULSE 72; O2SAT 96
[2020-10-06] MEDS: cefTRIAXone sodium 1 GM in 0.9 % Sodium Chloride 50 ML IV (10:56)
[2020-10-06] MEDS: predniSONE 20 MG TABLET PO (10:57)
[2020-10-06] MEDS: Furosemide 20 MG TABLET PO (10:57)
[2020-10-06 10:59] VITALS: BP 132/66; PULSE 74; RESP 18; O2SAT 95
[2020-10-06] MEDS: Acetaminophen 325 MG TABLET 650 MG PO (12:11)
[2020-10-06 14:43] LABS: Glucose, Whole Blood 166 mg/dL (60-115)
[2020-10-06 14:45] VITALS: BP 133/65; PULSE 78; RESP 16; O2SAT 93
[2020-10-06 15:50] VITALS: BP 154/67; PULSE 80; RESP 18; TEMP 36.6; O2SAT 93
--- NOTE | 2020-10-06 15:52 | PC.NURSE ---
Pt ambulates with walker, steady, to bathroom with standby assistance. Pt is aox3, denies complaints or needs at this time, cooperative and aware with plan for case management consult. Pending said consult.
--- NOTE | 2020-10-06 16:31 | MHC.CM.ED ---
Received case management consult from Dr Sainz. Patient came to ER after a fall. Found to have an UTI. Physical therapy eval completed. Short term rehab is recommended. Met with patient in regards to d/c planning. Patient lives alone, ambulates with a walker/scooter, has services through [facility] and [facility]. PCP verified as Dr Mishra at [facility]. HCP verified to be on file. Patient is refusing to go to short term rehab and is requesting to return home with resumption of services through [facility]. [facility] booked for transport. Patient, Dr Sainz and Keily RN aware. Continue to monitor for d/c needs.
--- NOTE | 2020-10-06 20:45 | PC.NURSE ---
Transport booked at this time.
== END 2020-10-06 21:22 | disposition home or self-care (01) ==
PROVIDERS: Emergency Provider Student in an Organized Health Care Education/Training Program
DX: N30.00 Acute cystitis without hematuria (principal); D72.829 Elevated white blood cell count, unspecified; R53.1 Weakness; S80.212A Abrasion, left knee, initial encounter; S80.211A Abrasion, right knee, initial encounter; W01.0XXA Fall on same level from slipping, tripping and stumbling without subsequent striking against object, initial encounter; Z86.16 Personal history of COVID-19; E11.9 Type 2 diabetes mellitus without complications; K50.90 Crohn's disease, unspecified, without complications; J44.9 Chronic obstructive pulmonary disease, unspecified; Z91.81 History of falling; Y93.9 Activity, unspecified; Y92.019 Unspecified place in single-family (private) house as the place of occurrence of the external cause; Y99.9 Unspecified external cause status; Z79.899 Other long term (current) drug therapy; Z79.4 Long term (current) use of insulin
CPT/HCPCS: 36415; 71045; 73564; 80053; 81001; 82947; 83735; 83880; 85025; 85610; 85730; 87086; 87088; 87186; 93005; 96365; 97162; 99285; J0696

== ENCOUNTER → 2020-10-30 10:42 | Outpatient (BNVA) | payer MEDICARE, SELFPAY | PROVIDERS: Visit Provider Surgery | DX: L30.4 Erythema intertrigo (principal) | CPT/HCPCS: 99212 ==

== ENCOUNTER 2020-12-08 13:17 | Outpatient (REF) | payer MEDICARE, SELFPAY | END 2020-12-08 13:18 | disposition home or self-care (01) | LOC: HO.LAB 13:17 | PROVIDERS: PCP Internal Medicine; Visit Provider Surgery | DX: L30.4 Erythema intertrigo (principal); E11.39 Type 2 diabetes mellitus with other diabetic ophthalmic complication; E11.65 Type 2 diabetes mellitus with hyperglycemia; Z86.16 Personal history of COVID-19 | CPT/HCPCS: 87071; 87205; 99212 ==

== ENCOUNTER 2021-03-07 16:53 | Inpatient (IN) | payer MEDICARE, OTHER, SELFPAY ==
[2021-03-07] VITALS (12 sets, daily range): BP systolic 104–141; BP diastolic 57–95; PULSE 87–166; RESP 16–25; TEMP 36.4; O2SAT 91–100; BMI 20.6
--- NOTE | 2021-03-07 | ECG_ITS ---
Test Reason : AFIB Blood Pressure : / mmHG Vent. Rate : 066 BPM Atrial Rate : 277 BPM P-R Int : 000 ms QRS Dur : 076 ms QT Int : 376 ms P-R-T Axes : 000 056 027 degrees QTc Int : 394 ms Atrial fibrillation Abnormal ECG When compared with ECG of 07-MAR-2021 17:30, Vent. rate has decreased BY 77 BPM Referred By: Augustus Sky Electronically Signed By:GABRIELLE SANCHEZ
--- NOTE | ~2021-03-07 | XR_ITS ---
EXAMINATION: XR CHEST CLINICAL INFORMATION: History of cough. Evaluate infection. COMPARISON: CXR from 09/20/2020 and 10/06/2020 TECHNIQUE: Frontal view of the chest was obtained. FINDINGS: The emphysematous lungs are well expanded. The bronchial kaiser appear to be chronically thickened. No evidence of a focal interstitial infiltrate, consolidation or pleural effusion. Cardiac silhouette has normal size and contour. The visualized bones are intact. XR/XR chest 1V IMPRESSION: Chronic obstructive pulmonary disease. Chronic and/or recurrent bronchitis/bronchiolitis is suspected. No acute pulmonary abnormality.
--- NOTE | 2021-03-07 17:04 | ECG_ITS ---
Test Reason : AFIB Blood Pressure : / mmHG Vent. Rate : 162 BPM Atrial Rate : 114 BPM P-R Int : 000 ms QRS Dur : 070 ms QT Int : 260 ms P-R-T Axes : 000 055 -88 degrees QTc Int : 426 ms Atrial fibrillation with rapid ventricular response Nonspecific ST and T wave abnormality Abnormal ECG When compared with ECG of 06-OCT-2020 05:15, Atrial fibrillation has replaced Sinus rhythm Vent. rate has increased BY 94 BPM Referred By: Augustus Sky Electronically Signed By:GABRIELLE SANCHEZ
[2021-03-07] MEDS: 0.9 % Sodium Chloride 1,000 ML 999 ML IVCONT (17:30)
--- NOTE | 2021-03-07 17:30 | PC.NURSE ---
Pt is increadibly hard stick for IV and blood draw due to dehydration. pt is extremely anxious regarding course of care.
--- NOTE | 2021-03-07 17:31 | ED.FALL ---
HPI - Fall General Chief Complaint: Fall Stated Complaint: MECH FALL W/JAMEL KNEE PAIN,NO COLLAR,ON ELEQUIS Time Seen by Provider: 03/07/21 17:04 Source: patient and EMS Mode of arrival: EMS Limitations: no limitations History of Present Illness HPI Narrative: Patient's history of diabetes atrial fibrillation on Eliquis and metoprolol had a mechanical fall just prior to arrival was using coffee table to get up which [place] and patient landed on her knees patient was unable to ambulate to bathroom called EMS for the help per EMS patient home condition was not good , patient not able to toilet herself evidence but dirty depends on the floor no food in the house patient denies any head injury no loss of consciousness no neck pain or headache no chest pain or palpitation blood sugar was 494 patient was complaining of dizziness after arrival heart rate noticed to be in 150 with AFib Related Data Home Medications Medication Instructions Recorded Confirmed apixaban [Eliquis] 1 tab PO BID 03/07/21 03/07/21 apixaban [Eliquis] 1 tab PO BID 03/07/21 03/07/21 metoprolol succinate 1 tab PO DAILY 03/07/21 03/07/21 nystatin 1 appl TOPICAL BID 03/07/21 03/07/21 oxybutynin chloride 1 tab PO BEDTIME 03/07/21 03/07/21 Allergies Allergy/AdvReac Type Severity Reaction Status Date / Time Iodinated Contrast Media Allergy Severe ANAPHYLAXIS, Verified 12/08/20 13:32 ITCHY EYES methadone [METHADONE] Allergy Intermediate AGITATED Verified 12/08/20 13:32 zolpidem [From AMBIEN] Allergy Intermediate EXTREMELY Verified 12/08/20 13:32 ANXIOUS belladonna alkaloids Allergy Mild UNKNOWN Verified 12/08/20 13:32 halothane Allergy Mild UNKNOWN Verified 12/08/20 13:32 morphine Allergy Mild HIVES, Verified 12/08/20 13:32 AGITATION pentazocine Allergy Mild HIVES Verified 12/08/20 13:32 Sulfa (Sulfonamide Allergy Mild HIVES, N/V Verified 12/08/20 13:32 Antibiotics) , ITCHING codeine [Codeine] Allergy Unknown HIVES Verified 12/08/20 13:32 Halothane Allergy Unknown Unknown Verified 12/08/20 13:32 Review of Systems Review of Systems: Constitutional : No Weight loss, No Fever, No Chills ENT/Mouth : No sore throat, No Rhinorrhea Eyes: No Eye Pain, No Swelling Cardiovascular : No Chest Pain, no palpitations Respiratory : No Cough, No Sputum, no shortness of breath Gastrointestinal : no Nausea, No Vomiting, No Diarrhea, No abdominal Pain, no black stools Genitourinary : No Dysuria, No Urinary Frequency Musculoskeletal : Bilateral knee pain, No Myalgias, No Joint Swelling Skin : No Skin Lesions, No rash Neuro : ++ Weakness, No Numbness, No Dizziness, No Headache Psych : No Anxiety/Panic, No Depression Heme/Lymph: No Bruising, No Lymphadenopathy Endocrine : No Polyuria, No Polydipsia All other systems reviewed and are negative [facility] Past Medical History Medical History COPD (chronic obstructive pulmonary disease) Crohn's disease 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 Emphysema lung Erythema intertrigo HTN (hypertension) with goal to be determined Seborrheic keratoses Surgical History History of abdominoplasty History of appendectomy History of bilateral salpingo-oophorectomy History of cholecystectomy History of hernia repair History of ileostomy History of laparotomy (~1970) History of tonsillectomy and adenoidectomy Family History Family History Father History of myocardial infarction Mother History of myocardial infarction Sister History of lymphoma Daughter History of fibromyalgia History of diabetes mellitus, type II Paternal Grandfather History of heart failure Maternal Grandfather History of heart failure Maternal Grandmother History of heart failure Social History Social History Alcohol intake: never Smoked in Last 30 Days: No Use of substances other than those prescribed or required for medical reasons: No Advance Directives: No Advance Directives Information Provided: Yes service: No Current occupational status: retired Physical Exam Vital Signs: Vital Signs: Last Vital Signs Temp 98.1 F 03/08/21 00:00 Pulse 118 H 03/08/21 00:00 Resp 16 03/08/21 00:00 BP 98/72 03/08/21 00:00 Pulse Ox 94 03/08/21 00:00 Body Mass Index 20.6 Appearance: Alert. Oriented X3. No acute distress. Anxious Eyes: PERRLA, No Nystagmus ENT: Pharynx normal. Oral Mucosa moist Neck: Normal inspection. Neck supple. CVS: Irregularly irregular tachycardia no murmur. Pulses normal. Respiratory: No respiratory distress. Equal air entry bilateral, no wheezing/rales/rhonchi Abdomen: Soft and nontender. Bowel sounds are present, no mass palpable, no CVA tenderness Skin: Skin warm and dry. Normal skin color. Normal skin turgor. Extremities: No lower extremity edema. No calf tenderness superficial abrasion on the knee good range of movements Neuro: Oriented X 3. No motor deficit. No sensory deficit.No cerebellar signs , cranial nerves II-XII intact MDM - Fall MDM Narrative Medical decision making narrative: Patient on Eliquis for AFib had a mechanical fall without any head injury or headache no change in mental status no significant pain in knees on arrival noticed to have rapid ventricular rate requiring 2 doses of IV Cardizem now on Cardizem drip to 15 milligram/hour heart rate still elevated will give 5 mg of Lopressor ,will admit patient for AFib with rapid ventricular rate Medical Records Attestation: I reviewed the patient's medical records. Lab Data Attestation: I reviewed the patient's lab results. Result diagrams: 03/07/21 17:46 03/07/21 17:46 Labs: Lab Results 03/07/21 03/07/21 03/07/21 Range/Units 17:05 17:46 17:46 WBC 10.9 H (4.8-10.8) X10*3/uL RBC 4.39 (4.20-5.50) X10*6/uL Hgb 12.9 (12.0-16.0) g/dl Hct 40.0 (37-47) % MCV 91.1 (80-98) fL MCH 29.4 (27.0-33.0) pg MCHC 32.3 (31.0-35.0) g/dl RDW 13.3 (11.0-16.0) % Plt Count 283 D (160-400) X10*3/uL MPV 9.1 L (9.4-12.3) fL Immature Gran % (Auto) 0.9 H (0.0-0.4) % Neut % (Auto) 88.5 H (45-73) % Lymph % (Auto) 6.8 L (20-40) % [place] % (Auto) 3.6 (2-11) % Eos % (Auto) 0.1 (0-4) % Baso % (Auto) 0.1 (0-2) % Lymph # (Auto) 0.7 L (1.2-4.9) X10*3/uL [place] # (Auto) 0.4 (0.1-1.2) X10*3/uL Eos # (Auto) 0.0 (0.0-0.4) X10*3/uL Baso # (Auto) 0.0 (0.0-0.2) X10*3/uL Abs Immat Gran (auto) 0.10 H (0.00-0.03) X10*3/uL Absolute Neuts (auto) 9.6 H (2.0-8.3) X10*3/uL Absolute Nucleated RBC 0.000 (0.0-0.012) X10*3/uL Nucleated RBC % (auto) 0.0 (0.0-0.2) /100WBC Sodium 133 L (135-145) mmol/L Potassium 5.6 H (3.3-5.1) mmol/L Chloride 99 (96-108) mmol/L Carbon Dioxide 19 L (22-29) mmol/L Anion Gap 21 H (12-20) BUN 25 H (9-16) mg/dL Creatinine 1.35 (0.5-1.4) mg/dL Estim Creat Clear Calc 24.9 Estimated GFR 37 POC Glucose 494 H* (60-115) mg/dL Random Glucose 521 H* (60-115) mg/dL Calcium 8.5 D (8.4-10.2) mg/dL Troponin I High Sens (<3.5-17.0) ng/L Urine Color Urine Appearance Urine pH (5.0-8.0) Ur Specific [place] (1.005-1.025) Urine Protein (NEG-TRACE) MG/DL Urine Glucose (UA) (NEG) MG/DL Urine Ketones (NEG) MG/DL Urine Blood (NEG) Urine Nitrite (NEG) Ur Leukocyte Esterase (NEG) Urine RBC (0) /HPF Urine WBC (0-4) /HPF Urine WBC Clumps Ur Squamous Epith Cells /LPF Urine Bacteria /LPF Urine Mucus /LPF Urine Yeast /HPF COVID-19 (BABAK) (Negative) COVID-19 Clin Com 03/07/21 03/07/21 03/07/21 Range/Units 17:46 17:50 18:32 WBC (4.8-10.8) X10*3/uL RBC (4.20-5.50) X10*6/uL Hgb (12.0-16.0) g/dl Hct (37-47) % MCV (80-98) fL MCH (27.0-33.0) pg MCHC (31.0-35.0) g/dl RDW (11.0-16.0) % Plt Count (160-400) X10*3/uL MPV (9.4-12.3) fL Immature Gran % (Auto) (0.0-0.4) % Neut % (Auto) (45-73) % Lymph % (Auto) (20-40) % [place] % (Auto) (2-11) % Eos % (Auto) (0-4) % Baso % (Auto) (0-2) % Lymph # (Auto) (1.2-4.9) X10*3/uL [place] # (Auto) (0.1-1.2) X10*3/uL Eos # (Auto) (0.0-0.4) X10*3/uL Baso # (Auto) (0.0-0.2) X10*3/uL Abs Immat Gran (auto) (0.00-0.03) X10*3/uL Absolute Neuts (auto) (2.0-8.3) X10*3/uL Absolute Nucleated RBC (0.0-0.012) X10*3/uL Nucleated RBC % (auto) (0.0-0.2) /100WBC Sodium (135-145) mmol/L Potassium (3.3-5.1) mmol/L Chloride (96-108) mmol/L Carbon Dioxide (22-29) mmol/L Anion Gap (12-20) BUN (9-16) mg/dL Creatinine (0.5-1.4) mg/dL Estim Creat Clear Calc Estimated GFR POC Glucose 555 H* (60-115) mg/dL Random Glucose (60-115) mg/dL Calcium (8.4-10.2) mg/dL Troponin I High Sens 17.0 (<3.5-17.0) ng/L Urine Color Urine Appearance Urine pH (5.0-8.0) Ur Specific [place] (1.005-1.025) Urine Protein (NEG-TRACE) MG/DL Urine Glucose (UA) (NEG) MG/DL Urine Ketones (NEG) MG/DL Urine Blood (NEG) Urine Nitrite (NEG) Ur Leukocyte Esterase (NEG) Urine RBC (0) /HPF Urine WBC (0-4) /HPF Urine WBC Clumps Ur Squamous Epith Cells /LPF Urine Bacteria /LPF Urine Mucus /LPF Urine Yeast /HPF COVID-19 (BABAK) Negative (Negative) COVID-19 Clin Com See Note 03/07/21 03/07/21 03/07/21 Range/Units 18:37 19:09 20:11 WBC (4.8-10.8) X10*3/uL RBC (4.20-5.50) X10*6/uL Hgb (12.0-16.0) g/dl Hct (37-47) % MCV (80-98) fL MCH (27.0-33.0) pg MCHC (31.0-35.0) g/dl RDW (11.0-16.0) % Plt Count (160-400) X10*3/uL MPV (9.4-12.3) fL Immature Gran % (Auto) (0.0-0.4) % Neut % (Auto) (45-73) % Lymph % (Auto) (20-40) % [place] % (Auto) (2-11) % Eos % (Auto) (0-4) % Baso % (Auto) (0-2) % Lymph # (Auto) (1.2-4.9) X10*3/uL [place] # (Auto) (0.1-1.2) X10*3/uL Eos # (Auto) (0.0-0.4) X10*3/uL Baso # (Auto) (0.0-0.2) X10*3/uL Abs Immat Gran (auto) (0.00-0.03) X10*3/uL Absolute Neuts (auto) (2.0-8.3) X10*3/uL Absolute Nucleated RBC (0.0-0.012) X10*3/uL Nucleated RBC % (auto) (0.0-0.2) /100WBC Sodium (135-145) mmol/L Potassium (3.3-5.1) mmol/L Chloride (96-108) mmol/L Carbon Dioxide (22-29) mmol/L Anion Gap (12-20) BUN (9-16) mg/dL Creatinine (0.5-1.4) mg/dL Estim Creat Clear Calc Estimated GFR POC Glucose 371 H* 323 H 205 H (60-115) mg/dL Random Glucose (60-115) mg/dL Calcium (8.4-10.2) mg/dL Troponin I High Sens (<3.5-17.0) ng/L Urine Color Urine Appearance Urine pH (5.0-8.0) Ur Specific [place] (1.005-1.025) Urine Protein (NEG-TRACE) MG/DL Urine Glucose (UA) (NEG) MG/DL Urine Ketones (NEG) MG/DL Urine Blood (NEG) Urine Nitrite (NEG) Ur Leukocyte Esterase (NEG) Urine RBC (0) /HPF Urine WBC (0-4) /HPF Urine WBC Clumps Ur Squamous Epith Cells /LPF Urine Bacteria /LPF Urine Mucus /LPF Urine Yeast /HPF COVID-19 ([facility]ABAK) (Negative) COVID-19 Clin Com 03/07/21 Range/Units 21:06 WBC (4.8-10.8) X10*3/uL RBC (4.20-5.50) X10*6/uL Hgb (12.0-16.0) g/dl Hct (37-47) % MCV (80-98) fL MCH (27.0-33.0) pg MCHC (31.0-35.0) g/dl RDW (11.0-16.0) % Plt Count (160-400) X10*3/uL MPV (9.4-12.3) fL Immature Gran % (Auto) (0.0-0.4) % Neut % (Auto) (45-73) % Lymph % (Auto) (20-40) % [place] % (Auto) (2-11) % Eos % (Auto) (0-4) % Baso % (Auto) (0-2) % Lymph # (Auto) (1.2-4.9) X10*3/uL [place] # (Auto) (0.1-1.2) X10*3/uL Eos # (Auto) (0.0-0.4) X10*3/uL Baso # (Auto) (0.0-0.2) X10*3/uL Abs Immat Gran (auto) (0.00-0.03) X10*3/uL Absolute Neuts (auto) (2.0-8.3) X10*3/uL Absolute Nucleated RBC (0.0-0.012) X10*3/uL Nucleated RBC % (auto) (0.0-0.2) /100WBC Sodium (135-145) mmol/L Potassium (3.3-5.1) mmol/L Chloride (96-108) mmol/L Carbon Dioxide (22-29) mmol/L Anion Gap (12-20) BUN (9-16) mg/dL Creatinine (0.5-1.4) mg/dL Estim Creat Clear Calc Estimated GFR POC Glucose (60-115) mg/dL Random Glucose (60-115) mg/dL Calcium (8.4-10.2) mg/dL Troponin I High Sens (<3.5-17.0) ng/L Urine Color YELLOW Urine Appearance HAZY Urine pH 6.0 (5.0-8.0) Ur Specific [place] 1.020 (1.005-1.025) Urine Protein 1+ H (NEG-TRACE) MG/DL Urine Glucose (UA) >=1000 H (NEG) MG/DL Urine Ketones 15 (NEG) MG/DL Urine Blood 1+ H (NEG) Urine Nitrite NEG (NEG) Ur Leukocyte Esterase NEG (NEG) Urine RBC 1-4 (0) /HPF Urine WBC 5-9 H (0-4) /HPF Urine WBC Clumps NOTED Ur Squamous Epith Cells TRACE /LPF Urine Bacteria 2+ /LPF Urine Mucus TRACE /LPF Urine Yeast 1+ /HPF COVID-19 ([facility]ABAK) (Negative) COVID-19 Clin Com ECG Data Attestation: I personally reviewed and interpreted this ECG as follows: Interpretation: Atrial fibrillation with heart rate 143 beats per minute no acute ST T wave changes no acute ischemic changes occasional PVCs Critical Care Time Critical Care Time Critical Care Time: Yes Total Critical Care Time: 45 Attestation: I spent 45 minutes of critical care, with interventions, assessments, speaking to patient Discharge Plan Discharge Clinical Impression: Atrial fibrillation with rapid ventricular response Patient Disposition: Admitted as Observation Interventions: Admission Worksheet (ED) Last Done: 03/07/21 23:31 Discharge Date/Time: 03/07/21 23:58
[2021-03-07] MEDS: Insulin Lispro 100 UNIT/ML 3 ML VIAL 14 UNIT SUBCUT (17:36)
[2021-03-07] MEDS: dilTIAZem HCL 50 MG/10 ML VIAL 10 MG IVPUSH ×2 (17:46→18:25)
--- NOTE | 2021-03-07 17:48 | PC.NURSE ---
10mg ivp cardizem given due to uncontrolled afib.
[2021-03-07 17:54] LABS: MANUAL DIFF FLAG NO
[2021-03-07 17:56] LABS: Basophils Percent Auto 0.1 % (0-2); Eosinophils Percent Auto 0.1 % (0-4); Hemoglobin 12.9 g/dl (12.0-16.0); Imm Gran Pct Auto 0.9 % (0.0-0.4); Lymphocytes Absolute Auto 0.7 X10*3/uL (1.2-4.9); Lymphocytes Percent Auto 6.8 % (20-40); Mean Corpuscular HGB Conc 32.3 g/dl (31.0-35.0); Mean Corpuscular Hemoglobin 29.4 pg (27.0-33.0); Mean Corpuscular Volume 91.1 fL (80-98); Mean Platelet Volume 9.1 fL (9.4-12.3); Monocytes Absolute Auto 0.4 X10*3/uL (0.1-1.2); Monocytes Percent Auto 3.6 % (2-11); Neutrophils Absolute Auto 9.6 X10*3/uL (2.0-8.3); Neutrophils Percent Auto 88.5 % (45-73); Platelet Count 283 X10*3/uL (160-400); Red Blood Count 4.39 X10*6/uL (4.20-5.50); Red Cell Distribution Width 13.3 % (11.0-16.0); White Blood Count 10.9 X10*3/uL (4.8-10.8)
[2021-03-07 18:03] LABS: Glucose, Whole Blood 494 mg/dL (60-115)
--- NOTE | 2021-03-07 18:04 | PC.NURSE ---
Dusty staff member from [facility] [phone] contacted this com writer to discuss about the patient's current living conditions and concerns should the patient be d/c tonight. alena informed that the patient is not medically cleared yet and this com writer would express concerns to md and cm team regarding living condtions and the patient having inadequate help at home.
--- NOTE | 2021-03-07 18:07 | PC.NURSE ---
attempted x 2 to contact grandson to find out infromation about pt's medical history with pt verbal permission. no response left message for sarah to contact ED.
[2021-03-07 18:11] LABS: COVID-19 Test Negative (Negative); IDNOW Serial# 9DD0AD1C
--- NOTE | 2021-03-07 18:21 | PC.NURSE ---
aware of hr
[2021-03-07 18:36] LABS: Blood Urea Nitrogen 25 mg/dL (9-16); Calcium 8.5 mg/dL (8.4-10.2); Creatinine Clr Calc Pharmacy 24.9; Estimated Glomerular Filt Rate 37; Glucose Random 521 mg/dL (60-115)
[2021-03-07 18:36] LABS: Glucose, Whole Blood 555 mg/dL (60-115)
[2021-03-07 18:40] LABS: Anion Gap 21 (12-20); Carbon Dioxide 19 mmol/L (22-29); Chloride 99 mmol/L (96-108); Potassium 5.6 mmol/L (3.3-5.1); Sodium 133 mmol/L (135-145)
[2021-03-07 18:40] LABS: Glucose, Whole Blood 371 mg/dL (60-115)
[2021-03-07] MEDS: Insulin Lispro 100 UNIT/ML 3 ML VIAL 8 UNIT SUBCUT (19:11)
[2021-03-07] MEDS: Insulin Glargine,Hum.rec.anlog 100 UNIT/ML 10 ML VIAL 20 UNIT SUBCUT (19:11)
[2021-03-07 19:13] LABS: Glucose, Whole Blood 323 mg/dL (60-115)
--- NOTE | 2021-03-07 19:37 | PC.NURSE ---
plan at this time is to put pt on dilt drip and admission.
[2021-03-07] MEDS: dilTIAZem HCL 125 MG in 0.9 % Sodium Chloride 100 ML 10 MG IVCONT (19:53)
--- NOTE | 2021-03-07 19:53 | PC.NURSE ---
diltizem drip began 1952, witnessed and dose confirmed by marbella elias. 166hr, drip started at 10mg/hr.
--- NOTE | 2021-03-07 20:07 | PC.NURSE ---
dilt drip increased to 15mg/hr. hr still afib between 130's to 170. monitoring for effectivenss.
--- NOTE | 2021-03-07 20:12 | PC.NURSE ---
bgl 205.
[2021-03-07 20:16] LABS: Glucose, Whole Blood 205 mg/dL (60-115)
--- NOTE | 2021-03-07 20:27 | PC.NURSE ---
contact made to grandson: grandson reports increased confusion. Vikas contact number: [phone] contact with concerns/questions complication.
[2021-03-07] MEDS: Metoprolol Tartrate 5 MG/5 ML VIAL IVPUSH (21:28)
[2021-03-07 21:30] LABS: Glucose Urine UA >=1000 MG/DL (NEG); Leukocyte Esterase Urine NEG (NEG); Nitrite Urine NEG (NEG); Urine Blood 1+ (NEG); Urine Ketones 15 MG/DL (NEG); Urine Protein 1+ MG/DL (NEG-TRACE)
--- NOTE | 2021-03-07 21:32 | PC.NURSE ---
diltiziem decreased to 10mg/hr at this time.
[2021-03-07 21:33] LABS: Appearance Urine HAZY; Color Urine YELLOW
--- NOTE | 2021-03-07 21:39 | PC.NURSE ---
pt hr 70's at this time. cardizem drip paused. pt resting at this time. no distress noted.
--- NOTE | 2021-03-07 21:49 | PC.NURSE ---
per hospitlaist, med rec to be done base off of meds on claim history, per patients haven't been taken in days/weeks.
[2021-03-07 22:03] LABS: Bacteria Urine 2+ /LPF; Mucus Urine TRACE /LPF; Squamous Epithelial Cell Urine TRACE /LPF; UACC CULT YES; WBC Clumps Urine NOTED
--- NOTE | 2021-03-07 22:22 | PC.NURSE ---
contact made to benigno at [phone] due to difficultstick and admitted status
[2021-03-07] MEDS: Apixaban 5 MG TABLET PO (22:55)
[2021-03-07] MEDS: 0.9 % Sodium Chloride 1,000 ML 100 ML IVCONT (22:55)
[2021-03-07] MEDS: cefTRIAXone sodium 1 GM in 0.9 % Sodium Chloride 50 ML IV (22:56)
[2021-03-07 23:26] LABS: Lactic Acid 2.8 mmol/L (0.5-2.0)
--- NOTE | 2021-03-07 23:28 | PC.NURSE ---
1st call to give report.
[2021-03-08] VITALS (10 sets, daily range): BP systolic 98–125; BP diastolic 53–80; PULSE 91–143; RESP 16–20; TEMP 36.5–37.1; O2SAT 94–98
[2021-03-08 00:42] LABS: Reflex Lactate? Lactic Acid Added
[2021-03-08 01:28] LABS: ~Lactic Acid-LAB USE ONLY 2.1 mmol/L (0.5-2.0)
[2021-03-08 02:59] LABS: Reflex Lactate? 2 Y
[2021-03-08 03:29] LABS: MANUAL DIFF FLAG NO
[2021-03-08 03:32] LABS: Basophils Percent Auto 0.1 % (0-2); Eosinophils Percent Auto 0.1 % (0-4); Hematocrit 40.3 % (37-47); Hemoglobin 13.2 g/dl (12.0-16.0); Imm Gran Abs Auto 0.08 X10*3/uL (0.00-0.03); Imm Gran Pct Auto 0.6 % (0.0-0.4); Lymphocytes Absolute Auto 1.4 X10*3/uL (1.2-4.9); Lymphocytes Percent Auto 9.9 % (20-40); Mean Corpuscular HGB Conc 32.8 g/dl (31.0-35.0); Mean Corpuscular Hemoglobin 29.5 pg (27.0-33.0); Mean Platelet Volume 8.9 fL (9.4-12.3); Monocytes Absolute Auto 0.8 X10*3/uL (0.1-1.2); Monocytes Percent Auto 5.9 % (2-11); Neutrophils Absolute Auto 11.8 X10*3/uL (2.0-8.3); Neutrophils Percent Auto 83.4 % (45-73); Platelet Count 273 X10*3/uL (160-400); Red Blood Count 4.48 X10*6/uL (4.20-5.50); Red Cell Distribution Width 13.3 % (11.0-16.0); White Blood Count 14.1 X10*3/uL (4.8-10.8)
[2021-03-08 03:49] LABS: ~Lactic Acid-LAB USE ONLY 1.2 mmol/L (0.5-2.0)
[2021-03-08 04:08] LABS: Anion Gap 13 (12-20); Blood Urea Nitrogen 22 mg/dL (9-16); Calcium 8.4 mg/dL (8.4-10.2); Carbon Dioxide 22 mmol/L (22-29); Chloride 106 mmol/L (96-108); Creatinine Clr Calc Pharmacy 36.6; Estimated Glomerular Filt Rate 58; Glucose Random 41 mg/dL (60-115); Sodium 137 mmol/L (135-145)
[2021-03-08 04:18] LABS: Glucose, Whole Blood 48 mg/dL (60-115)
[2021-03-08 04:31] LABS: Glucose, Whole Blood 77 mg/dL (60-115)
[2021-03-08 05:16] LABS: Glucose, Whole Blood 108 mg/dL (60-115)
--- NOTE | 2021-03-08 06:32 | P.HPHOSP_ITS ---
History of Present Illness Date of Service: 03/07/21 Chief Complaint: fall This is an 85-year-old female with past medical history of AFib, COPD, Crohn's disease, diabetes, HTN, who presents to the hospital after experiencing a fall at home. According to the patient she was sitting down, tried to get a by placing her arms on the table, and the table flipped over and everything fell along with her. Patient denies any dizziness, no loss of consciousness, no head injury, she fell on her knees with no knee pain. She had difficulty getting herself up and pressed her Life Alert button which prompted EMS to come to her house. Per EMS patient is living situation appears to be very poor and elderly services were contacted. Patient herself denies any worsening cough, sputum production, and no worsening of her shortness of breath which she reports are all chronic in the setting of her COPD. She denies any abdominal pain nausea or vomiting, no chest pain, no diarrhea constipation, reports urinary urgency and dysuria and feels like she has urinary infection for about a week now although did not seek any medical help. denies any fever or chills, no headache or change in vision, no weakness numbness or tingling. On arrival to the ED patient's vital significant for temp of 97.5?, heart rate of 154, respiratory of 20, lupus XI with her 3, satting 96% on room air Labs are significant for WBC count of 10.9, sodium of 133, potassium 5.6, BUN of 25, creatinine of 1.35, glucose of 555, lactic acid of 2.8, UA positive for WBC with no evidence of leukocyte esterase or nitrates pt will be Admitted for further management Of note on review of her medication history it appears the patient has not filled any of her medications for over 3 months Review of Systems Review of Systems: Yes all other systems are reviewed and are negative PENDING SALE TO [facility] Medical History (Updated 03/08/21 @ 06:43 by Damaris Waterman MD) Atrial fibrillation COPD (chronic obstructive pulmonary disease) COVID-19 Crohn's disease 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 Emphysema lung Erythema intertrigo HTN (hypertension) with goal to be determined Seborrheic keratoses Family History Father History of myocardial infarction Mother History of myocardial infarction Sister History of lymphoma Daughter History of fibromyalgia History of diabetes mellitus, type II Paternal Grandfather History of heart failure Maternal Grandfather History of heart failure Maternal Grandmother History of heart failure Surgical History History of abdominoplasty History of appendectomy History of bilateral salpingo-oophorectomy History of cholecystectomy History of hernia repair History of ileostomy History of laparotomy (~1970) History of tonsillectomy and adenoidectomy Social History Household Members: None Housing: Apartment Do you presently have visiting nurse or other home services: Yes ([facility]) Alcohol intake: never Patient Tobacco Use Status: Tobacco use Unknown Smoked in Last 30 Days: No Use of substances other than those prescribed or required for medical reasons: No Currently Displaying Signs/Symptoms of Drug Intoxication Withdrawal: No Any prior treatment program specific to substance use: No Have you been hit, kicked, punched, or otherwise hurt by someone within the past year? If so, by whom?: No Do you feel safe in your current relationship?: No Current Relationship Is there a partner from a previous relationship who is making you feel unsafe now?: No Are you made to feel afraid or neglected: No Advance Directives: No Advance Directives Information Provided: Yes Do you have thoughts of harming others: None Do you have a plan to hurt others: No Plan Recently lost weight without trying: Yes How much weight loss: Unsure Eating poorly because of decreased appetite: Yes Nutrition screen score: 5 Nutrition Risks: Poor intake 0-25% >4 days Patient : No : No Poor oral hygiene: No service: No Current occupational status: retired Meds Allergies Allergy/AdvReac Type Severity Reaction Status Date / Time Iodinated Contrast Media Allergy Severe ANAPHYLAXIS, Verified 12/08/20 13:32 ITCHY EYES methadone [METHADONE] Allergy Intermediate AGITATED Verified 12/08/20 13:32 zolpidem [From AMBIEN] Allergy Intermediate EXTREMELY Verified 12/08/20 13:32 ANXIOUS belladonna alkaloids Allergy Mild UNKNOWN Verified 12/08/20 13:32 halothane Allergy Mild UNKNOWN Verified 12/08/20 13:32 morphine Allergy Mild HIVES, Verified 12/08/20 13:32 AGITATION pentazocine Allergy Mild HIVES Verified 12/08/20 13:32 Sulfa (Sulfonamide Allergy Mild HIVES, N/V Verified 12/08/20 13:32 Antibiotics) , ITCHING codeine [Codeine] Allergy Unknown HIVES Verified 12/08/20 13:32 Halothane Allergy Unknown Unknown Verified 12/08/20 13:32 Active Medications: Current Medications Generic Name Dose Route Start Last Admin Trade Name Freq PRN Reason Stop Dose Admin Acetaminophen 650 mg 03/07/21 22:09 Acetaminophen 325 Mg Tablet PO Q6H PRN Pain, Mild (Pain Scale 1-3) Apixaban 5 mg 03/07/21 22:15 03/07/21 22:55 Apixaban 5 Mg Tablet PO 5 mg BID TREVON Administration Docusate Sodium 100 mg 03/07/21 22:09 Docusate Sodium 100 Mg Capsule PO DAILY PRN Constipation Diltiazem HCl 125 mg/ Sodium 125 mls @ 0 mls/hr 03/07/21 19:45 03/07/21 19:53 Chloride IVCONT 10 mg/hr .Q0M TREVON 10 mls/hr Administration Protocol Per Protocol Ceftriaxone Sodium 1 gm/ 50 mls @ 100 mls/hr 03/07/21 23:00 03/07/21 23:28 Sodium Chloride IV Infused Q24H TREVON Infusion Sodium Chloride 1,000 mls @ 100 mls/hr 03/07/21 22:15 03/07/21 22:55 Ns IVCONT 100 mls/hr .Q10H TREVON Administration Metoprolol Succinate 50 mg 03/08/21 09:00 Metoprolol Succinate Er 50 Mg Tab.Er.24h PO DAILY TREVON Protocol Oxybutynin Chloride 5 mg 03/07/21 22:15 03/07/21 22:55 Oxybutynin Chloride Er 5 Mg Tab.Er.24 PO 5 mg BEDTIME TREVON Administration Sodium Chloride 3 ml 03/08/21 00:00 03/08/21 00:39 0.9 % Sodium Chloride Flush 3 Ml Syringe IVFLUSH Not Given QSHIFT [facility] Home Medications Medication Instructions Recorded Confirmed Last Taken Type apixaban [Eliquis] 1 tab PO BID 03/07/21 03/07/21 Unknown History metoprolol succinate 1 tab PO DAILY 03/07/21 03/07/21 Unknown History nystatin 1 appl TOPICAL BID 03/07/21 03/07/21 Unknown History oxybutynin chloride 1 tab PO BEDTIME 03/07/21 03/07/21 Unknown History Physical Exam Vital Signs and Narrative: Vital Signs: Last Vital Signs Temp 98.1 F 03/08/21 03:28 Pulse 113 H 03/08/21 03:28 Resp 18 03/08/21 03:28 BP 100/53 L 03/08/21 03:28 Pulse Ox 96 03/08/21 03:28 Body Mass Index 20.6 Const: Other: She is oriented to self, month and place but also has few actions that suggest mild confusion General: cooperative and no acute distress Orientation/consciousness: patient oriented x3 Eyes: General: appearance normal, both eyes and all related structures Resp: Effort & Inspection: normal respiratory effort and able to speak in complete sentences Cardio: Rate: regular rate Rhythm: regular rhythm GI: Palpation (GI): Soft to palpation Auscultation: normal bowel sounds Skin: General skin exam: no rashes or lesions noted Neuro: General: patient oriented x3 Cognition (Neuro): normal cognition Extrem: General: Yes normal to inspection and Yes no pedal edema Results Labs CBC and Chem 7: 03/08/21 03:25 03/08/21 03:25 Labs: Laboratory Results - last 24 hr 03/07/21 03/07/21 03/07/21 17:05 17:46 17:46 MCV 91.1 MCH 29.4 MCHC 32.3 RDW 13.3 Plt Count 283 D MPV 9.1 L Immature Gran % (Auto) 0.9 H Neut % (Auto) 88.5 H Lymph % (Auto) 6.8 L [place] % (Auto) 3.6 Eos % (Auto) 0.1 Baso % (Auto) 0.1 Lymph # (Auto) 0.7 L [place] # (Auto) 0.4 Eos # (Auto) 0.0 Baso # (Auto) 0.0 Abs Immat Gran (auto) 0.10 H Absolute Neuts (auto) 9.6 H Absolute Nucleated RBC 0.000 Nucleated RBC % (auto) 0.0 Anion Gap 21 H Estim Creat Clear Calc 24.9 Estimated GFR 37 POC Glucose 494 H* Random Glucose 521 H* Lactic Acid Lactic Acid Fup @ 2Hr Lactic Acid Fup @ 4Hr Calcium 8.5 D Troponin I High Sens Urine Color Urine Appearance Urine pH Ur Specific [place] Urine Protein Urine Glucose (UA) Urine Ketones Urine Blood Urine Nitrite Ur Leukocyte Esterase Urine RBC Urine WBC Urine WBC Clumps Ur Squamous Epith Cells Urine Bacteria Urine Mucus Urine Yeast COVID-19 (BABAK) COVID-19 [employer] Com 03/07/21 03/07/21 03/07/21 17:46 17:50 18:32 MCV MCH MCHC RDW Plt Count MPV Immature Gran % (Auto) Neut % (Auto) Lymph % (Auto) [place] % (Auto) Eos % (Auto) Baso % (Auto) Lymph # (Auto) [place] # (Auto) Eos # (Auto) Baso # (Auto) Abs Immat Gran (auto) Absolute Neuts (auto) Absolute Nucleated RBC Nucleated RBC % (auto) Anion Gap Estim Creat Clear Calc Estimated GFR POC Glucose 555 H* Random Glucose Lactic Acid Lactic Acid Fup @ 2Hr Lactic Acid Fup @ 4Hr Calcium Troponin I High Sens 17.0 Urine Color Urine Appearance Urine pH Ur Specific [place] Urine Protein Urine Glucose (UA) Urine Ketones Urine Blood Urine Nitrite Ur Leukocyte Esterase Urine RBC Urine WBC Urine WBC Clumps Ur Squamous Epith Cells Urine Bacteria Urine Mucus Urine Yeast COVID-19 (BABAK) Negative COVID-19 [employer] Com See Note 03/07/21 03/07/21 03/07/21 18:37 19:09 20:11 MCV MCH MCHC RDW Plt Count MPV Immature Gran % (Auto) Neut % (Auto) Lymph % (Auto) [place] % (Auto) Eos % (Auto) Baso % (Auto) Lymph # (Auto) [place] # (Auto) Eos # (Auto) Baso # (Auto) Abs Immat Gran (auto) Absolute Neuts (auto) Absolute Nucleated RBC Nucleated RBC % (auto) Anion Gap Estim Creat Clear Calc Estimated GFR POC Glucose 371 H* 323 H 205 H Random Glucose Lactic Acid Lactic Acid Fup @ 2Hr Lactic Acid Fup @ 4Hr Calcium Troponin I High Sens Urine Color Urine Appearance Urine pH Ur Specific [place] Urine Protein Urine Glucose (UA) Urine Ketones Urine Blood Urine Nitrite Ur Leukocyte Esterase Urine RBC Urine WBC Urine WBC Clumps Ur Squamous Epith Cells Urine Bacteria Urine Mucus Urine Yeast COVID-19 (BABAK) COVID-19 [employer] Com 03/07/21 03/07/21 03/08/21 21:06 22:36 00:55 MCV MCH MCHC RDW Plt Count MPV Immature Gran % (Auto) Neut % (Auto) Lymph % (Auto) [place] % (Auto) Eos % (Auto) Baso % (Auto) Lymph # (Auto) [place] # (Auto) Eos # (Auto) Baso # (Auto) Abs Immat Gran (auto) Absolute Neuts (auto) Absolute Nucleated RBC Nucleated RBC % (auto) Anion Gap Estim Creat Clear Calc Estimated GFR POC Glucose Random Glucose Lactic Acid 2.8 H* Lactic Acid Fup @ 2Hr 2.1 H* Lactic Acid Fup @ 4Hr Calcium Troponin I High Sens Urine Color YELLOW Urine Appearance HAZY Urine pH 6.0 Ur Specific [place] 1.020 Urine Protein 1+ H Urine Glucose (UA) >=1000 H Urine Ketones 15 Urine Blood 1+ H Urine Nitrite NEG Ur Leukocyte Esterase NEG Urine RBC 1-4 Urine WBC 5-9 H Urine WBC Clumps NOTED Ur Squamous Epith Cells TRACE Urine Bacteria 2+ Urine Mucus TRACE Urine Yeast 1+ COVID-19 (BABAK) COVID-19 Clin Com 03/08/21 03/08/21 03/08/21 03:23 03:25 03:25 MCV 90.0 MCH 29.5 MCHC 32.8 RDW 13.3 Plt Count 273 MPV 8.9 L Immature Gran % (Auto) 0.6 H Neut % (Auto) 83.4 H Lymph % (Auto) 9.9 L [place] % (Auto) 5.9 Eos % (Auto) 0.1 Baso % (Auto) 0.1 Lymph # (Auto) 1.4 [place] # (Auto) 0.8 Eos # (Auto) 0.0 Baso # (Auto) 0.0 Abs Immat Gran (auto) 0.08 H Absolute Neuts (auto) 11.8 H Absolute Nucleated RBC 0.000 Nucleated RBC % (auto) 0.0 Anion Gap 13 Estim Creat Clear Calc 36.6 Estimated GFR 58 POC Glucose Random Glucose 41 L* Lactic Acid Lactic Acid Fup @ 2Hr Lactic Acid Fup @ 4Hr 1.2 Calcium 8.4 Troponin I High Sens Urine Color Urine Appearance Urine pH Ur Specific [place] Urine Protein Urine Glucose (UA) Urine Ketones Urine Blood Urine Nitrite Ur Leukocyte Esterase Urine RBC Urine WBC Urine WBC Clumps Ur Squamous Epith Cells Urine Bacteria Urine Mucus Urine Yeast COVID-19 (BABAK) COVID-19 Fourteen IP 03/08/21 03/08/21 03/08/21 04:13 04:27 05:12 MCV MCH MCHC RDW Plt Count MPV Immature Gran % (Auto) Neut % (Auto) Lymph % (Auto) [place] % (Auto) Eos % (Auto) Baso % (Auto) Lymph # (Auto) [place] # (Auto) Eos # (Auto) Baso # (Auto) Abs Immat Gran (auto) Absolute Neuts (auto) Absolute Nucleated RBC Nucleated RBC % (auto) Anion Gap Estim Creat Clear Calc Estimated GFR POC Glucose 48 L* 77 108 Random Glucose Lactic Acid Lactic Acid Fup @ 2Hr Lactic Acid Fup @ 4Hr Calcium Troponin I High Sens Urine Color Urine Appearance Urine pH Ur Specific [place] Urine Protein Urine Glucose (UA) Urine Ketones Urine Blood Urine Nitrite Ur Leukocyte Esterase Urine RBC Urine WBC Urine WBC Clumps Ur Squamous Epith Cells Urine Bacteria Urine Mucus Urine Yeast COVID-19 (BABAK) COVID-19 Fourteen IP Assessment and Plan (1) Atrial fibrillation with rapid ventricular response: Status: Acute (2) Urinary urgency: Status: Acute (3) Hyperglycemia due to diabetes mellitus: Status: Acute (4) Leukocytosis: Status: Acute 85-year-old female with past medical history of AFib, COPD, presents to the hospital and found to be in AFib with RVR # AFib with RVR - possibly secondary to acute infection although UA is positive for WBC 8 is negative for leukocyte Estrace and nitrite - no evidence of upper respiratory infection - will obtained patient placed on Cardizem with heart rate improving - per medication refill history it appears the patient has not been taking her metoprolol or her apixaban for over 3 months - will resume her metoprolol as well as apixaban # hyperglycemia secondary to diabetes - improved and patient unfortunately developed hypoglycemia after receiving insulin for glucose of 500 - will place on low-dose sliding scale insulin - diabetic diet # leukocytosis - at this time no evidence of infection although reports dysuria and urgency, her urine is positive for WBC but negative for leukocyte esterase and nitrites - will obtain a chest x-ray - follow blood cultures - follow cbc # COPD - no evidence of exacerbation - will obtain a chest x-ray - p.r.n. DuoNeb DVT ppx: [employer] Stroke Does the patient have a stroke diagnosis?: No VTE Prior VTE?: No VTE Risk Level:: Medical - moderate - high VTE Device Contraindication: Treatment Not Indicated VTE Drug Contraindication: N/A - Med Ordered
[2021-03-08] MEDS: dilTIAZem HCL 125 MG in 0.9 % Sodium Chloride 100 ML IVCONT ×2 (08:25→17:55)
[2021-03-08] MEDS: 0.9 % Sodium Chloride 1,000 ML 100 ML IVCONT ×2 (08:26→17:59)
[2021-03-08] MEDS: Metoprolol Succinate ER 50 MG TAB.ER.24H PO (08:26)
[2021-03-08] MEDS: Apixaban 5 MG TABLET PO ×2 (08:26→20:25)
[2021-03-08 08:49] LABS: Magnesium 1.7 mg/dL (1.6-2.6)
[2021-03-08 10:09] LABS: Troponin-I High Sensitivity 20.5 ng/L (<3.5-17.0)
[2021-03-08 11:21] LABS: Glucose, Whole Blood 126 mg/dL (60-115)
--- NOTE | 2021-03-08 11:28 | MHC.CM.PN ---
met with pt who states that she lives alone she has servcies thru [facility] tues and [facility]..she plans on moving to a assited living facility and reports has been working on that goal..her dc plan is tbd ,will need a pt eval ? home with vna vs str
--- NOTE | 2021-03-08 15:43 | P.PNIM_ITS ---
Subjective Subjective Date of Service: 03/08/21 Interval History: ventricular rate now controlled in 90s denies chest pain, palpitations, or dyspnea denies medication non-adherence Physical Exam Vital Signs: Vital Signs: Last Vital Signs Temp 98.3 F 03/08/21 15:13 Pulse 99 03/08/21 15:13 Resp 16 03/08/21 15:13 BP 118/80 03/08/21 15:13 Pulse Ox 94 03/08/21 15:13 Body Mass Index 20.6 Gen: in no acute distress HEENT: sclera anicteric, moist mucus membranes Neck: supple Lungs: clear to auscultation bilaterally Heart: irregularly irregular Abd: soft, non-tender, non-distended Ext: no edema Skin: warm/well-perfused Neuro: alert and oriented x3, no focal findings Psych: appropriate affect Objective Data Current Medications Generic Name Dose Route Start Last Admin Trade Name Freq PRN Reason Stop Dose Admin Acetaminophen 650 mg 03/07/21 22:09 Acetaminophen 325 Mg Tablet PO Q6H PRN Pain, Mild (Pain Scale 1-3) Albuterol/Ipratropium 3 ml 03/08/21 06:44 Albuterol/Iprat 2.5/0.5mg 3 Ml Ampul.Neb INHALE Q4H PRN Shortness of Breath/Wheezing Apixaban 5 mg 03/07/21 22:15 03/08/21 08:26 Apixaban 5 Mg Tablet PO 5 mg BID TREVON Administration Docusate Sodium 100 mg 03/07/21 22:09 Docusate Sodium 100 Mg Capsule PO DAILY PRN Constipation Ceftriaxone Sodium 1 gm/ 50 mls @ 100 mls/hr 03/07/21 23:00 03/07/21 23:28 Sodium Chloride IV Infused Q24H TREVON Infusion Sodium Chloride 1,000 mls @ 100 mls/hr 03/07/21 22:15 03/08/21 08:26 Ns IVCONT 100 mls/hr .Q10H TREVON Administration Metoprolol Succinate 50 mg 03/08/21 09:00 03/08/21 08:26 Metoprolol Succinate Er 50 Mg Tab.Er.24h PO 50 mg DAILY TREVON Administration Protocol Oxybutynin Chloride 5 mg 03/07/21 22:15 03/07/21 22:55 Oxybutynin Chloride Er 5 Mg Tab.Er.24 PO 5 mg BEDTIME TREVON Administration Sodium Chloride 3 ml 03/08/21 00:00 03/08/21 09:40 0.9 % Sodium Chloride Flush 3 Ml Syringe IVFLUSH Not Given QSHIFT [facility] Labs CBC & Chem 7: 03/08/21 03:25 03/08/21 03:25 Labs: Laboratory Results - last 24 hr 03/07/21 03/07/21 03/07/21 17:05 17:46 17:46 WBC 10.9 H RBC 4.39 Hgb 12.9 Hct 40.0 MCV 91.1 MCH 29.4 MCHC 32.3 RDW 13.3 Plt Count 283 D MPV 9.1 L Immature Gran % (Auto) 0.9 H Neut % (Auto) 88.5 H Lymph % (Auto) 6.8 L Brooke % (Auto) 3.6 Eos % (Auto) 0.1 Baso % (Auto) 0.1 Lymph # (Auto) 0.7 L Brooke # (Auto) 0.4 Eos # (Auto) 0.0 Baso # (Auto) 0.0 Abs Immat Gran (auto) 0.10 H Absolute Neuts (auto) 9.6 H Absolute Nucleated RBC 0.000 Nucleated RBC % (auto) 0.0 Sodium 133 L Potassium 5.6 H Chloride 99 Carbon Dioxide 19 L Anion Gap 21 H BUN 25 H Creatinine 1.35 Estim Creat Clear Calc 24.9 Estimated GFR 37 POC Glucose 494 H* Random Glucose 521 H* Lactic Acid Lactic Acid Fup @ 2Hr Lactic Acid Fup @ 4Hr Calcium 8.5 D Magnesium Troponin I High Sens Urine Color Urine Appearance Urine pH Ur Specific [place] Urine Protein Urine Glucose (UA) Urine Ketones Urine Blood Urine Nitrite Ur Leukocyte Esterase Urine RBC Urine WBC Urine WBC Clumps Ur Squamous Epith Cells Urine Bacteria Urine Mucus Urine Yeast COVID-19 (BABAK) COVID-19 Clin Com 03/07/21 03/07/21 03/07/21 17:46 17:50 18:32 WBC RBC Hgb Hct MCV MCH MCHC RDW Plt Count MPV Immature Gran % (Auto) Neut % (Auto) Lymph % (Auto) Brooke % (Auto) Eos % (Auto) Baso % (Auto) Lymph # (Auto) Brooke # (Auto) Eos # (Auto) Baso # (Auto) Abs Immat Gran (auto) Absolute Neuts (auto) Absolute Nucleated RBC Nucleated RBC % (auto) Sodium Potassium Chloride Carbon Dioxide Anion Gap BUN Creatinine Estim Creat Clear Calc Estimated GFR POC Glucose 555 H* Random Glucose Lactic Acid Lactic Acid Fup @ 2Hr Lactic Acid Fup @ 4Hr Calcium Magnesium Troponin I High Sens 17.0 Urine Color Urine Appearance Urine pH Ur Specific [place] Urine Protein Urine Glucose (UA) Urine Ketones Urine Blood Urine Nitrite Ur Leukocyte Esterase Urine RBC Urine WBC Urine WBC Clumps Ur Squamous Epith Cells Urine Bacteria Urine Mucus Urine Yeast COVID-19 (BABAK) Negative COVID-19 Clin Com See Note 03/07/21 03/07/21 03/07/21 18:37 19:09 20:11 WBC RBC Hgb Hct MCV MCH MCHC RDW Plt Count MPV Immature Gran % (Auto) Neut % (Auto) Lymph % (Auto) Brooke % (Auto) Eos % (Auto) Baso % (Auto) Lymph # (Auto) Brooke # (Auto) Eos # (Auto) Baso # (Auto) Abs Immat Gran (auto) Absolute Neuts (auto) Absolute Nucleated RBC Nucleated RBC % (auto) Sodium Potassium Chloride Carbon Dioxide Anion Gap BUN Creatinine Estim Creat Clear Calc Estimated GFR POC Glucose 371 H* 323 H 205 H Random Glucose Lactic Acid Lactic Acid Fup @ 2Hr Lactic Acid Fup @ 4Hr Calcium Magnesium Troponin I High Sens Urine Color Urine Appearance Urine pH Ur Specific [place] Urine Protein Urine Glucose (UA) Urine Ketones Urine Blood Urine Nitrite Ur Leukocyte Esterase Urine RBC Urine WBC Urine WBC Clumps Ur Squamous Epith Cells Urine Bacteria Urine Mucus Urine Yeast COVID-19 (BABAK) COVID-19 [place] 03/07/21 03/07/21 03/08/21 21:06 22:36 00:55 WBC RBC Hgb Hct MCV MCH MCHC RDW Plt Count MPV Immature Gran % (Auto) Neut % (Auto) Lymph % (Auto) Brooke % (Auto) Eos % (Auto) Baso % (Auto) Lymph # (Auto) Brooke # (Auto) Eos # (Auto) Baso # (Auto) Abs Immat Gran (auto) Absolute Neuts (auto) Absolute Nucleated RBC Nucleated RBC % (auto) Sodium Potassium Chloride Carbon Dioxide Anion Gap BUN Creatinine Estim Creat Clear Calc Estimated GFR POC Glucose Random Glucose Lactic Acid 2.8 H* Lactic Acid Fup @ 2Hr 2.1 H* Lactic Acid Fup @ 4Hr Calcium Magnesium Troponin I High Sens Urine Color YELLOW Urine Appearance HAZY Urine pH 6.0 Ur Specific [place] 1.020 Urine Protein 1+ H Urine Glucose (UA) >=1000 H Urine Ketones 15 Urine Blood 1+ H Urine Nitrite NEG Ur Leukocyte Esterase NEG Urine RBC 1-4 Urine WBC 5-9 H Urine WBC Clumps NOTED Ur Squamous Epith Cells TRACE Urine Bacteria 2+ Urine Mucus TRACE Urine Yeast 1+ COVID-19 (BABAK) COVID-19 [place] 03/08/21 03/08/21 03/08/21 03:23 03:25 03:25 WBC 14.1 H RBC 4.48 Hgb 13.2 Hct 40.3 MCV 90.0 MCH 29.5 MCHC 32.8 RDW 13.3 Plt Count 273 MPV 8.9 L Immature Gran % (Auto) 0.6 H Neut % (Auto) 83.4 H Lymph % (Auto) 9.9 L Brooke % (Auto) 5.9 Eos % (Auto) 0.1 Baso % (Auto) 0.1 Lymph # (Auto) 1.4 Brooke # (Auto) 0.8 Eos # (Auto) 0.0 Baso # (Auto) 0.0 Abs Immat Gran (auto) 0.08 H Absolute Neuts (auto) 11.8 H Absolute Nucleated RBC 0.000 Nucleated RBC % (auto) 0.0 Sodium 137 Potassium 4.0 D Chloride 106 Carbon Dioxide 22 Anion Gap 13 BUN 22 H Creatinine 0.92 Estim Creat Clear Calc 36.6 Estimated GFR 58 POC Glucose Random Glucose 41 L* Lactic Acid Lactic Acid Fup @ 2Hr Lactic Acid Fup @ 4Hr 1.2 Calcium 8.4 Magnesium 1.7 Troponin I High Sens Urine Color Urine Appearance Urine pH Ur Specific [place] Urine Protein Urine Glucose (UA) Urine Ketones Urine Blood Urine Nitrite Ur Leukocyte Esterase Urine RBC Urine WBC Urine WBC Clumps Ur Squamous Epith Cells Urine Bacteria Urine Mucus Urine Yeast COVID-19 (BABAK) COVID-19 [place] 03/08/21 03/08/21 03/08/21 04:13 04:27 05:12 WBC RBC Hgb Hct MCV MCH MCHC RDW Plt Count MPV Immature Gran % (Auto) Neut % (Auto) Lymph % (Auto) Brooke % (Auto) Eos % (Auto) Baso % (Auto) Lymph # (Auto) Brooke # (Auto) Eos # (Auto) Baso # (Auto) Abs Immat Gran (auto) Absolute Neuts (auto) Absolute Nucleated RBC Nucleated RBC % (auto) Sodium Potassium Chloride Carbon Dioxide Anion Gap BUN Creatinine Estim Creat Clear Calc Estimated GFR POC Glucose 48 L* 77 108 Random Glucose Lactic Acid Lactic Acid Fup @ 2Hr Lactic Acid Fup @ 4Hr Calcium Magnesium Troponin I High Sens Urine Color Urine Appearance Urine pH Ur Specific [place] Urine Protein Urine Glucose (UA) Urine Ketones Urine Blood Urine Nitrite Ur Leukocyte Esterase Urine RBC Urine WBC Urine WBC Clumps Ur Squamous Epith Cells Urine Bacteria Urine Mucus Urine Yeast COVID-19 (BABAK) COVID-[employer] 03/08/21 03/08/21 09:09 11:16 WBC RBC Hgb Hct MCV MCH MCHC RDW Plt Count MPV Immature Gran % (Auto) Neut % (Auto) Lymph % (Auto) Brooke % (Auto) Eos % (Auto) Baso % (Auto) Lymph # (Auto) Brooke # (Auto) Eos # (Auto) Baso # (Auto) Abs Immat Gran (auto) Absolute Neuts (auto) Absolute Nucleated RBC Nucleated RBC % (auto) Sodium Potassium Chloride Carbon Dioxide Anion Gap BUN Creatinine Estim Creat Clear Calc Estimated GFR POC Glucose 126 H Random Glucose Lactic Acid Lactic Acid Fup @ 2Hr Lactic Acid Fup @ 4Hr Calcium Magnesium Troponin I High Sens 20.5 H* Urine Color Urine Appearance Urine pH Ur Specific [place] Urine Protein Urine Glucose (UA) Urine Ketones Urine Blood Urine Nitrite Ur Leukocyte Esterase Urine RBC Urine WBC Urine WBC Clumps Ur Squamous Epith Cells Urine Bacteria Urine Mucus Urine Yeast COVID-19 (BABAK) COVID-19 [place] Com Microbiology Microbiology Results: Microbiology 03/07/21 Unknown Urine Culture - Preliminary Urine clean catch - Clean Catch Midstream No growth to date. Quality Stroke Does the patient have a stroke diagnosis?: No VTE Prior VTE?: No VTE Risk Level:: Medical - moderate - high VTE Device Contraindication: Treatment Not Indicated VTE Drug Contraindication: N/A - Med Ordered Assessment and Plan (1) Atrial fibrillation with rapid ventricular response: Status: Acute Assessment and Plan: hospital d#1 85yo F with AF, COPD, Crohn's disease, DM2, HTN Life Alert activated after mechanical fall at home, found to be in AF/RVR and concern of inadequate self-care. also hyperglycemic upon presentation # AF/RVR - d/c diltazem gtt, resume home metoprolol succinate - TTE - continue apixaban # UTI - ceftriaxone d#1, follow UCx # ELIZA - resolved after fluid hydration # hyperK - resolved after fluid hydration + insulin administration # lactic acidosis - resolved # HTN - metoprolol as above # DM2 - initially hyperglycemic, then hypoglycemic after basal + bolus insulin given. currently normoglycemic; give correction-dose lispro only. not on home meds. check A1c. # COPD, not in acute exacerbation - prn Duonebs # inadequate self-care - CM consultation # VTE ppx - apixaban
[2021-03-08 16:24] LABS: Glucose, Whole Blood 155 mg/dL (60-115)
[2021-03-08] MEDS: Insulin Lispro 100 UNIT/ML 3 ML VIAL SUBCUT ×2 (17:09→21:18)
[2021-03-08] MEDS: 0.9 % Sodium Chloride Flush 3 ML SYRINGE IVFLUSH ×2 (17:10→20:26)
--- NOTE | 2021-03-08 18:00 | PC.NURSE ---
Pt off cardizem drip in AM at HR avg 90s most of am. Around 1730 pt was getting dressed, HR was rising 120s asymptomatic - then settled into laying in bed for ~15min and HR still 120s and up to 140s. Pt resting quietly no cardiac s/s. notified - Cardizem m drip turned back on starting at 5ml per hr. Will titrate per protocol
[2021-03-08 20:43] LABS: Glucose, Whole Blood 170 mg/dL (60-115)
[2021-03-08] MEDS: cefTRIAXone sodium 1 GM in 0.9 % Sodium Chloride 50 ML IV (22:51)
[2021-03-09] VITALS (10 sets, daily range): BP systolic 111–136; BP diastolic 56–73; PULSE 83–115; RESP 16–18; TEMP 36–36.9; O2SAT 94–96; BMI 20.6
[2021-03-09] MEDS: 0.9 % Sodium Chloride 1,000 ML 100 ML IVCONT (03:06)
[2021-03-09 05:39] LABS: Hematocrit 38.9 % (37-47); Hemoglobin 12.2 g/dl (12.0-16.0); Mean Corpuscular HGB Conc 31.4 g/dl (31.0-35.0); Mean Corpuscular Hemoglobin 29.1 pg (27.0-33.0); Mean Corpuscular Volume 92.8 fL (80-98); Mean Platelet Volume 9.4 fL (9.4-12.3); Platelet Count 243 X10*3/uL (160-400); Red Blood Count 4.19 X10*6/uL (4.20-5.50); Red Cell Distribution Width 13.3 % (11.0-16.0); White Blood Count 12.5 X10*3/uL (4.8-10.8)
[2021-03-09 06:08] LABS: Anion Gap 12 (12-20); Blood Urea Nitrogen 18 mg/dL (9-16); Calcium 7.8 mg/dL (8.4-10.2); Carbon Dioxide 19 mmol/L (22-29); Chloride 110 mmol/L (96-108); Creatinine Clr Calc Pharmacy 35.8; Estimated Glomerular Filt Rate 57; Glucose Random 220 mg/dL (60-115); Magnesium 1.7 mg/dL (1.6-2.6); Potassium 4.4 mmol/L (3.3-5.1); Sodium 137 mmol/L (135-145)
[2021-03-09 06:44] LABS: Hemoglobin A1c % > 14.0 %
[2021-03-09 07:06] LABS: Glucose, Whole Blood 189 mg/dL (60-115)
[2021-03-09] MEDS: Metoprolol Succinate ER 50 MG TAB.ER.24H PO (07:58)
[2021-03-09] MEDS: Apixaban 5 MG TABLET PO ×2 (07:58→20:08)
[2021-03-09] MEDS: Insulin Lispro 100 UNIT/ML 3 ML VIAL SUBCUT ×4 (07:58→20:08)
[2021-03-09] MEDS: 0.9 % Sodium Chloride Flush 3 ML SYRINGE IVFLUSH ×2 (07:59→14:52)
--- NOTE | 2021-03-09 08:30 | CA_ITS ---
Transthoracic Echocardiogram Patient (Last, First, Middle): Alejandra Kruger C Gender: Female Date of : 1935 Age: 85 Procedure Date: 03/09/2021 Procedure Type: Transthoracic [place] [facility] [place]: 157.48 cm Weight: 50.8 kg BSA: 1.49 m2 Heart Rate: bpm BP: 128 / 73 mmHg Maintenance Journeyman: YR/CP Referring MD: Chacorta Cano MD Symptoms: AF/RVR Study Quality: Fair Conclusions: - Normal left ventricular size, thickness, and systolic function. - Normal right ventricular cavity size and systolic function. - The left atrium is moderately dilated. - There is moderate mitral annular calcification. Findings Left Ventricle Normal left ventricular size, thickness, and systolic function. The visually estimated ejection fraction is between 65-70%. There is no evidence of regional wall motion abnormalities. Diastolic function is indeterminate on the basis of available data. Right Ventricle Normal right ventricular cavity size and systolic function. Atria The left atrium is moderately dilated. The right atrium is normal in size. Aortic Valve There is a normal trileaflet aortic valve. There is mild calcification of the aortic valve. There is no aortic valve stenosis. There is trace (trivial) aortic valve regurgitation. Mitral Valve There is moderate mitral annular calcification. There is no mitral valve regurgitation. There is no mitral valve stenosis. Pulmonic Valve The pulmonic valve is likely normal. Tricuspid Valve Normal tricuspid valve structure and function. There is trace tricuspid valve regurgitation. Normal right atrial pressure. There is no evidence of pulmonary hypertension. Great Vessels All visible segments of the aorta are normal in size. The pulmonary artery was not well visualized. Venous The inferior vena cava is normal in size and collapses greater than 50% with inspiration. Pericardium/Pleural There is no evidence of pericardial effusion. Prior Study Comparison Changes noted compared to prior study dated: 12/18/2018. LA moderately dilated, EF 65-70%, Patient in Afib now. Measurements 2D Linear Measurements IVSd: 0.88 0.6-0.9/0.6-1.0 cm LVIDd: 4.21 3.9-5.3/4.2-5.9 cm LVIDd Index: 2.83 2.4-3.2/2.2-3.1 cm/m2 LVIDs: 2.26 2.0-3.6 cm LVPWd: 0.94 0.7-1.1 cm Ao Root: 3.20 2.1-3.5 cm LA Diam: 3.00 2.7-3.8/3.0-4.0 cm LAIDs Index: 2.01 1.5-2.3 cm/m2 LV Mass: 150.42 67-162/88-224 g LV Mass Index: 100.96 43-95/49-115 g/m2 LVOT Diam: 2.00 3.0+(-)1.3 cm Mitral Valve E'Lateral: 6.85 Aortic Valve AoV Pk Jones: 1.12 AoV Mn Jones: 0.83 AoV VTI: 0.20 AoV Pk Grad: 5.00 Aov Mn Grad: 3.00 SUZANNE Cont.VTI: 2.18 LVOT LVOT Pk Jones: 0.72 LVOT Mn Jones: 0.49 LVOT VTI: 0.14 LVOT Pk Grad: 2.00 LVOT Mn Grad: 1.00 LVOT Diam: 2.00 LVOT Area: 3.14 Diastolic Function E' Laterial: 6.85 Tricuspid Valve TR Pk Jones: 2.28 TR Pk Grad: 21.00 RA Press: 3.00 RVSP: 24.00 Great Vessels Aorta Ao Root-2D: 3.20 2.0-3.7 cm Ao Asc: 3.10 2.1-3.4 cm Ao Arch: 2.70 Updated in Other Vendor System with Status of Final Isaiah Pacheco MD electronically signed on 03/09/2021 4:40:48 PM with status of Final
[2021-03-09] MEDS: Magnesium Sulfate/H2O 2 GM/50 ML PIGGYBACK IV (08:44)
[2021-03-09 11:14] LABS: Glucose, Whole Blood 170 mg/dL (60-115)
--- NOTE | 2021-03-09 12:28 | P.PNIM_ITS ---
Subjective Subjective Date of Service: 03/09/21 Interval History: denies chest pain, palpitations, or dyspnea Physical Exam Vital Signs: Vital Signs: Last Vital Signs Temp 97.3 F 03/09/21 11:33 Pulse 83 03/09/21 11:33 Resp 16 03/09/21 11:33 BP 113/57 L 03/09/21 11:33 Pulse Ox 96 03/09/21 11:33 Body Mass Index 20.6 Gen: in no acute distress HEENT: sclera anicteric, moist mucus membranes Neck: supple Lungs: clear to auscultation bilaterally Heart: irregularly irregular Abd: soft, non-tender, non-distended Ext: no edema Skin: warm/well-perfused Neuro: alert and oriented x3, no focal findings Psych: appropriate affect Objective Data Current Medications Generic Name Dose Route Start Last Admin Trade Name Freq PRN Reason Stop Dose Admin Acetaminophen 650 mg 03/07/21 22:09 Acetaminophen 325 Mg Tablet PO Q6H PRN Pain, Mild (Pain Scale 1-3) Albuterol/Ipratropium 3 ml 03/08/21 06:44 Albuterol/Iprat 2.5/0.5mg 3 Ml Ampul.Neb INHALE Q4H PRN Shortness of Breath/Wheezing Apixaban 5 mg 03/07/21 22:15 03/09/21 07:58 Apixaban 5 Mg Tablet PO 5 mg BID TREVON Administration Docusate Sodium 100 mg 03/07/21 22:09 Docusate Sodium 100 Mg Capsule PO DAILY PRN Constipation Ceftriaxone Sodium 1 gm/ 50 mls @ 100 mls/hr 03/07/21 23:00 03/08/21 23:21 Sodium Chloride IV Infused Q24H TREVON Infusion Diltiazem HCl 125 mg/ Sodium 125 mls @ 0 mls/hr 03/08/21 18:00 03/09/21 11:47 Chloride IVCONT 0 mg/hr .Q0M TREVON 0 mls/hr Titration Protocol Per Protocol Insulin Human Lispro 0 unit 03/08/21 21:00 03/09/21 11:35 Insulin Lispro 100 Unit/Ml 3 Ml Vial SUBCUT 2 unit QIDACHS TREVON Administration Protocol Metoprolol Succinate 50 mg 03/08/21 09:00 03/09/21 07:58 Metoprolol Succinate Er 50 Mg Tab.Er.24h PO 50 mg DAILY TREVON Administration Protocol Oxybutynin Chloride 5 mg 03/07/21 22:15 03/08/21 20:25 Oxybutynin Chloride Er 5 Mg Tab.Er.24 PO 5 mg BEDTIME TREVON Administration Sodium Chloride 3 ml 03/08/21 00:00 03/09/21 07:59 0.9 % Sodium Chloride Flush 3 Ml Syringe IVFLUSH 3 ml QSHIFT TREVON Administration Labs CBC & Chem 7: 03/09/21 05:13 03/09/21 05:13 Labs: Laboratory Results - last 24 hr 03/08/21 03/08/21 03/09/21 16:18 20:26 05:13 WBC 12.5 H RBC 4.19 L Hgb 12.2 Hct 38.9 MCV 92.8 MCH 29.1 MCHC 31.4 RDW 13.3 Plt Count 243 MPV 9.4 Absolute Nucleated RBC 0.000 Nucleated RBC % (auto) 0.0 Sodium Potassium Chloride Carbon Dioxide Anion Gap BUN Creatinine Estim Creat Clear Calc Estimated GFR POC Glucose 155 H 170 H Random Glucose Estimat Average Glucose Hemoglobin A1c % Calcium Magnesium 03/09/21 03/09/21 03/09/21 05:13 05:13 06:59 WBC RBC Hgb Hct MCV MCH MCHC RDW Plt Count MPV Absolute Nucleated RBC Nucleated RBC % (auto) Sodium 137 Potassium 4.4 Chloride 110 H Carbon Dioxide 19 L Anion Gap 12 BUN 18 H Creatinine 0.94 Estim Creat Clear Calc 35.8 Estimated GFR 57 POC Glucose 189 H Random Glucose 220 H D Estimat Average Glucose TNP Hemoglobin A1c % > 14.0 Calcium 7.8 L D Magnesium 1.7 03/09/21 11:03 WBC RBC Hgb Hct MCV MCH MCHC RDW Plt Count MPV Absolute Nucleated RBC Nucleated RBC % (auto) Sodium Potassium Chloride Carbon Dioxide Anion Gap BUN Creatinine Estim Creat Clear Calc Estimated GFR POC Glucose 170 H Random Glucose Estimat Average Glucose Hemoglobin A1c % Calcium Magnesium Microbiology Microbiology Results: Microbiology 03/08/21 07:50 Blood Culture - Preliminary Blood - Venous No growth after 24 hours. 03/08/21 07:51 Blood Culture - Preliminary Blood - Venous No growth after 24 hours. 03/07/21 Unknown Urine Culture - Preliminary Urine clean catch - Clean Catch Midstream Culture in progress. Quality Stroke Does the patient have a stroke diagnosis?: No VTE Prior VTE?: No VTE Risk Level:: Medical - moderate - high VTE Device Contraindication: Treatment Not Indicated VTE Drug Contraindication: N/A - Med Ordered Assessment and Plan (1) Atrial fibrillation with rapid ventricular response: Status: Acute Assessment and Plan: hospital d#2 85yo F with AF, COPD, Crohn's disease, DM2, HTN Life Alert activated after mechanical fall at home, found to be in AF/RVR and c oncern of inadequate self-care. also hyperglycemic upon presentation # AF/RVR - back on diltiazem gtt, will increase metoprolol succinate dose and attempt to wean off gtt. replete Mg to 2+ - TTE pending - continue apixaban # UTI - ceftriaxone d#2, follow UCx # ELIZA - resolved after fluid hydration # hyperK - resolved after fluid hydration + insulin administration # lactic acidosis - resolved # HTN - metoprolol as above # DM2 - initially hyperglycemic, then hypoglycemic after basal + bolus insulin given. currently BGs controlled on correction-dose lispro only. not on home meds and A1c >14. # COPD, not in acute exacerbation - prn Duonebs # inadequate self-care - CM consultation # VTE ppx - apixaban
[2021-03-09] MEDS: Metoprolol Succinate ER 25 MG TAB.ER.24H PO (12:35)
--- NOTE | 2021-03-09 13:20 | MHC.CLN ---
RE: CONSULT PT WITH INCREASED RISK FOR MALNUTRITION-CURRENTLY NO S/S MALNUTRITION S/P NFPE WT REMAINS WITHIN IBW RANGE FOR HT PT REPORTED UBW 147# WITH 30# WT LOSS SINCE SEPTEMBER PT WITH HX COVID, LIVING SITUATION POOR, POOR PO AND FAMILY REPORTS INCREASE IN CONFUSION AND NON COMPLIANCE WITH MEDS FOR MONTHS; NOTED A1C >14% PREVIOUS WT HX 155# (02/22/20) TRIGGERS FOR 27% SIGNIFICANT WT LOSS X 1 YEAR PO INTAKE 25% DIET RX: REGULAR-RECOMMEND 1500DM R/T DX DM AND ELEVATED A1C >14% PT REPORTS SHE DISLIKES GLUCERNA SUPPLEMENT AND STATED IT MAKES ME THROW UP PT RECEPTIVE TO TRIAL OF ENSURE CLEAR TID, HOWEVER WILL NEED TO MONITOR POC CLOSELY SUPPLEMENT TO PROVIDE 720KCALS, 24G PROTEIN MONITOR PO INTAKE AND ACCEPTANCE OF SUPPLEMENT SEE ALSO CLINICAL NUTRITION ASSESSMENT
--- NOTE | 2021-03-09 14:48 | MHC.CM.PN ---
[id number] DX Afib rvr UTI fall. DP is home with services. [facility] has been referred. VM left for Grandson requesting return call. PT eval recommends STR. CM will follow.
[2021-03-09 16:27] LABS: Glucose, Whole Blood 348 mg/dL (60-115)
[2021-03-09 19:44] LABS: Glucose, Whole Blood 217 mg/dL (60-115)
[2021-03-09] MEDS: cefTRIAXone sodium 1 GM in 0.9 % Sodium Chloride 50 ML IV (23:00)
[2021-03-10] VITALS (9 sets, daily range): BP systolic 107–139; BP diastolic 60–75; PULSE 66–135; RESP 16–18; TEMP 36.1–37.1; O2SAT 93–96
[2021-03-10] MEDS: 0.9 % Sodium Chloride Flush 3 ML SYRINGE IVFLUSH ×4 (00:02→22:50)
[2021-03-10] MEDS: dilTIAZem HCL 125 MG in 0.9 % Sodium Chloride 100 ML 10 MG IVCONT (02:17)
[2021-03-10 06:14] LABS: Hematocrit 40.4 % (37-47); Hemoglobin 12.5 g/dl (12.0-16.0); Mean Corpuscular HGB Conc 30.9 g/dl (31.0-35.0); Mean Corpuscular Hemoglobin 28.4 pg (27.0-33.0); Mean Corpuscular Volume 91.8 fL (80-98); Mean Platelet Volume 9.9 fL (9.4-12.3); Platelet Count 277 X10*3/uL (160-400); Red Cell Distribution Width 13.2 % (11.0-16.0); White Blood Count 11.7 X10*3/uL (4.8-10.8)
[2021-03-10 06:35] LABS: Anion Gap 13 (12-20); Blood Urea Nitrogen 17 mg/dL (9-16); Calcium 7.8 mg/dL (8.4-10.2); Carbon Dioxide 19 mmol/L (22-29); Chloride 109 mmol/L (96-108); Creatinine Clr Calc Pharmacy 37.8; Estimated Glomerular Filt Rate > 60; Glucose Random 269 mg/dL (60-115); Potassium 4.4 mmol/L (3.3-5.1); Sodium 137 mmol/L (135-145)
[2021-03-10 06:59] LABS: Glucose, Whole Blood 236 mg/dL (60-115)
[2021-03-10] MEDS: Insulin Lispro 100 UNIT/ML 3 ML VIAL SUBCUT ×4 (07:48→21:30)
[2021-03-10] MEDS: Metoprolol Succinate ER 25 MG TAB.ER.24H 75 MG PO (07:48)
[2021-03-10] MEDS: Apixaban 5 MG TABLET PO ×2 (07:49→21:29)
[2021-03-10] MEDS: metFORMIN HCl 500 MG TABLET PO ×2 (08:30→16:52)
[2021-03-10] MEDS: Metoprolol Succinate ER 25 MG TAB.ER.24H PO (09:25)
--- NOTE | 2021-03-10 16:02 | P.PNIM_ITS ---
Subjective Subjective Date of Service: 03/10/21 Interval History: RVR up to 130s overnight, currently 90s no complaints; feels less week Physical Exam Vital Signs: Vital Signs: Last Vital Signs Temp 97.5 F 03/10/21 14:57 Pulse 91 03/10/21 14:57 Resp 17 03/10/21 14:57 BP 107/63 03/10/21 14:57 Pulse Ox 96 03/10/21 14:57 Body Mass Index 20.6 Gen: in no acute distress HEENT: sclera anicteric, moist mucus membranes Neck: supple Lungs: clear to auscultation bilaterally Heart: irregularly irregular Abd: soft, non-tender, non-distended Ext: no edema Skin: warm/well-perfused Neuro: alert and oriented x3, no focal findings Psych: appropriate affect Objective Data Current Medications Generic Name Dose Route Start Last Admin Trade Name Freq PRN Reason Stop Dose Admin Acetaminophen 650 mg 03/07/21 22:09 Acetaminophen 325 Mg Tablet PO Q6H PRN Pain, Mild (Pain Scale 1-3) Albuterol/Ipratropium 3 ml 03/08/21 06:44 Albuterol/Iprat 2.5/0.5mg 3 Ml Ampul.Neb INHALE Q4H PRN Shortness of Breath/Wheezing Apixaban 5 mg 03/07/21 22:15 03/10/21 07:49 Apixaban 5 Mg Tablet PO 5 mg BID TREVON Administration Docusate Sodium 100 mg 03/07/21 22:09 Docusate Sodium 100 Mg Capsule PO DAILY PRN Constipation Ceftriaxone Sodium 1 gm/ 50 mls @ 100 mls/hr 03/07/21 23:00 03/10/21 00:02 Sodium Chloride IV Infused Q24H TREVON Infusion Diltiazem HCl 125 mg/ Sodium 125 mls @ 0 mls/hr 03/08/21 18:00 03/10/21 10:00 Chloride IVCONT 0 mg/hr .Q0M TERVON 0 mls/hr Titration Protocol Per Protocol Insulin Human Lispro 0 unit 03/08/21 21:00 03/10/21 12:08 Insulin Lispro 100 Unit/Ml 3 Ml Vial SUBCUT 6 unit QIDACHS TREVON Administration Protocol Metformin HCl 500 mg 03/10/21 08:15 03/10/21 08:30 Metformin Hcl 500 Mg Tablet PO 500 mg BIDWM TREVON Administration Metoprolol Succinate 100 mg 03/11/21 09:00 Metoprolol Succinate Er 50 Mg Tab.Er.24h PO DAILY [facility] [place] Protocol Oxybutynin Chloride 5 mg 03/07/21 22:15 03/09/21 20:07 Oxybutynin Chloride Er 5 Mg Tab.Er.24 PO 5 mg BEDTIME TREVON Administration Sodium Chloride 3 ml 03/08/21 00:00 03/10/21 07:49 0.9 % Sodium Chloride Flush 3 Ml Syringe IVFLUSH 3 ml QSHIFT TREVON Administration Labs CBC & Chem 7: 03/10/21 05:25 03/10/21 05:25 Labs: Laboratory Results - last 24 hr 03/09/21 03/09/21 03/10/21 16:14 19:39 05:25 WBC 11.7 H RBC 4.40 Hgb 12.5 Hct 40.4 MCV 91.8 MCH 28.4 MCHC 30.9 L RDW 13.2 Plt Count 277 MPV 9.9 Absolute Nucleated RBC 0.000 Nucleated RBC % (auto) 0.0 Sodium Potassium Chloride Carbon Dioxide Anion Gap BUN Creatinine Estim Creat Clear Calc Estimated GFR POC Glucose 348 H 217 H Random Glucose Calcium Magnesium 03/10/21 03/10/21 05:25 06:55 WBC RBC Hgb Hct MCV MCH MCHC RDW Plt Count MPV Absolute Nucleated RBC Nucleated RBC % (auto) Sodium 137 Potassium 4.4 Chloride 109 H Carbon Dioxide 19 L Anion Gap 13 BUN 17 H Creatinine 0.89 Estim Creat Clear Calc 37.8 Estimated GFR > 60 POC Glucose 236 H Random Glucose 269 H Calcium 7.8 L Magnesium 2.0 TTE 03/09/21 - Normal left ventricular size, thickness, and systolic function. - Normal right ventricular cavity size and systolic function. - The left atrium is moderately dilated. - There is moderate mitral annular calcification. Microbiology Microbiology Results: Microbiology 03/08/21 07:51 Blood Culture - Preliminary Blood - Venous No growth after 48 hours. 03/08/21 07:50 Blood Culture - Preliminary Blood - Venous No growth after 48 hours. 03/07/21 Unknown Urine Culture - Preliminary Urine clean catch - Clean Catch Midstream Gram negative promise Quality Stroke Does the patient have a stroke diagnosis?: No VTE Prior VTE?: No VTE Risk Level:: Medical - moderate - high VTE Device Contraindication: Treatment Not Indicated VTE Drug Contraindication: N/A - Med Ordered Assessment and Plan (1) Atrial fibrillation with rapid ventricular response: Status: Acute Assessment and Plan: hospital d#4 85yo F with AF, COPD, Crohn's disease, DM2, HTN Life Alert activated after mechanical fall at home, found to be in AF/RVR and concern of inadequate self-care. also hyperglycemic upon presentation # AF/RVR - increase metoprolol succinate dose further and try to wean off diltiazem gtt - continue apixaban # UTI - ceftriaxone d#3, follow UCx # ELIZA - resolved after fluid hydration # hyperK - resolved after fluid hydration + insulin administration # lactic acidosis - resolved # HTN - metoprolol as above # DM2 - initially hyperglycemic, then hypoglycemic after basal + bolus insulin given. currently BGs controlled on correction-dose lispro only. not on home meds and A1c >14. will add MTF. may require basal insulin. # COPD, not in acute exacerbation - prn Duonebs # inadequate self-care - CM consultation # VTE ppx - apixaban
[2021-03-10 16:03] LABS: Glucose, Whole Blood 277 mg/dL (60-115)
[2021-03-10 16:04] LABS: Glucose, Whole Blood 162 mg/dL (60-115)
[2021-03-10 19:56] LABS: Glucose, Whole Blood 280 mg/dL (60-115)
[2021-03-10] MEDS: cefTRIAXone sodium 1 GM in 0.9 % Sodium Chloride 50 ML IV (22:49)
[2021-03-11] VITALS (8 sets, daily range): BP systolic 132–144; BP diastolic 60–67; PULSE 70–83; RESP 14–20; TEMP 36.3–37.1; O2SAT 92–97
[2021-03-11] MEDS: dilTIAZem HCL 125 MG in 0.9 % Sodium Chloride 100 ML 10 MG IVCONT (02:15)
[2021-03-11 07:25] LABS: Glucose, Whole Blood 278 mg/dL (60-115)
[2021-03-11] MEDS: 0.9 % Sodium Chloride Flush 3 ML SYRINGE IVFLUSH ×3 (07:38→20:22)
[2021-03-11] MEDS: Insulin Lispro 100 UNIT/ML 3 ML VIAL SUBCUT ×3 (07:40→20:29)
[2021-03-11] MEDS: metFORMIN HCl 500 MG TABLET PO ×2 (07:41→16:16)
[2021-03-11] MEDS: Apixaban 5 MG TABLET PO ×2 (07:46→20:30)
[2021-03-11] MEDS: Metoprolol Succinate ER 50 MG TAB.ER.24H 100 MG PO (08:00)
[2021-03-11] MEDS: Insulin Glargine,Hum.rec.anlog 100 UNIT/ML 10 ML VIAL SUBCUT (09:41)
[2021-03-11 11:41] LABS: Glucose, Whole Blood 145 mg/dL (60-115)
--- NOTE | 2021-03-11 12:20 | MHC.CLN ---
F/U PO INTAKE IMPROVED 75-100% DIET RX: 1500DM-APPROPRIATE PT RECEIVING TRIAL OF ENSURE CLEAR TID, POC >200 AT TIMES SUPPLEMENT TO PROVIDE 720KCALS, 24G PROTEIN WILL REDUCE SUPPLEMENT TO BID R/T IMPROVED PO INTAKE CONTINUE TO MONITOR PO INTAKE AND POC
--- NOTE | 2021-03-11 14:46 | PC.NURSE ---
Skin assessment completed today. Patient found to have excoriated skin on coccyx, anal, fernando and groin area. Patient states its from urinating too much. Patient wears depends at home which are often wet, she changes them as often as she can. Very painful. EPC cream was applied to coccyx, anal and fernando area, InterDry was placed in bilateral groin area.
--- NOTE | 2021-03-11 15:44 | HO.PM.IMPN ---
Subjective Subjective Date of Service: 03/11/21 Interval History: converted to NSR around 3am today dysuria resolved no palpitations Physical Exam Vital Signs: Vital Signs: Last Vital Signs Temp 97.4 F 03/11/21 11:12 Pulse 70 03/11/21 11:43 Resp 17 03/11/21 11:12 BP 132/60 03/11/21 11:43 Pulse Ox 97 03/11/21 11:43 Body Mass Index 20.6 Gen: in no acute distress HEENT: sclera anicteric, moist mucus membranes Neck: supple Lungs: clear to auscultation bilaterally Heart: RRR no m/r/g Abd: soft, non-tender, non-distended Ext: no edema Skin: warm/well-perfused Neuro: alert and oriented x3, no focal findings Psych: appropriate affect Objective Data Current Medications Generic Name Dose Route Start Last Admin Trade Name Freq PRN Reason Stop Dose Admin Acetaminophen 650 mg 03/07/21 22:09 Acetaminophen 325 Mg Tablet PO Q6H PRN Pain, Mild (Pain Scale 1-3) Albuterol/Ipratropium 3 ml 03/08/21 06:44 Albuterol/Iprat 2.5/0.5mg 3 Ml Ampul.Neb INHALE Q4H PRN Shortness of Breath/Wheezing Apixaban 5 mg 03/07/21 22:15 03/11/21 07:46 Apixaban 5 Mg Tablet PO 5 mg BID TREVON Administration Docusate Sodium 100 mg 03/07/21 22:09 Docusate Sodium 100 Mg Capsule PO DAILY PRN Constipation Ceftriaxone Sodium 1 gm/ 50 mls @ 100 mls/hr 03/07/21 23:00 03/10/21 23:40 Sodium Chloride IV Infused Q24H TREVON Infusion Diltiazem HCl 125 mg/ Sodium 125 mls @ 0 mls/hr 03/08/21 18:00 03/11/21 04:59 Chloride IVCONT 0 mg/hr .Q0M TREVON 0 mls/hr Titration Protocol Per Protocol Insulin Glargine 5 unit 03/11/21 09:00 03/11/21 09:41 Insulin Glargine,Hum.Rec.Anlog 100 Unit/Ml 10 Ml Vial SUBCUT 5 unit DAILY TREVON Administration Insulin Human Lispro 0 unit 03/08/21 21:00 03/11/21 11:33 Insulin Lispro 100 Unit/Ml 3 Ml Vial SUBCUT Not Given QIDACHS [facility] Protocol Metformin HCl 500 mg 03/10/21 08:15 03/11/21 07:41 Metformin Hcl 500 Mg Tablet PO 500 mg BIDWM TREVON Administration Metoprolol Succinate 100 mg 03/11/21 09:00 03/11/21 08:00 Metoprolol Succinate Er 50 Mg Tab.Er.24h PO 100 mg DAILY TREVON Administration Protocol Oxybutynin Chloride 5 mg 03/07/21 22:15 03/10/21 21:29 Oxybutynin Chloride Er 5 Mg Tab.Er.24 PO 5 mg BEDTIME TREVON Administration Sodium Chloride 3 ml 03/08/21 00:00 03/11/21 15:00 0.9 % Sodium Chloride Flush 3 Ml Syringe IVFLUSH 3 ml QSHIFT TREVON Administration Labs CBC & Chem 7: 03/10/21 05:25 03/10/21 05:25 Labs: Laboratory Results - last 24 hr 03/10/21 03/10/21 03/10/21 10:54 15:54 19:50 POC Glucose 277 H 162 H 280 H 03/11/21 03/11/21 07:18 11:27 POC Glucose 278 H 145 H Microbiology Microbiology Results: Microbiology 03/07/21 Unknown Urine Culture - Final Urine clean catch - Clean Catch Midstream Klebsiella pneumoniae Quality Stroke Does the patient have a stroke diagnosis?: No VTE Prior VTE?: No VTE Risk Level:: Medical - moderate - high VTE Device Contraindication: Treatment Not Indicated VTE Drug Contraindication: N/A - Med Ordered Assessment and Plan (1) Atrial fibrillation with rapid ventricular response: Status: Acute Assessment and Plan: hospital d#5 85yo F with AF, COPD, Crohn's disease, DM2, HTN Life Alert activated after mechanical fall at home, found to be in AF/RVR and concern of inadequate self-care. also hyperglycemic upon presentation # AF/RVR - off diltiazem gtt, metoprolol succinate increased from 50 mg/d to 100 mg/d - continue apixaban # UTI - ceftriaxone d#4, growing Klebsiella pneumoniae resistant only to ampicillin, may change to cefuroxime on d/c to complete 7d # ELIZA - resolved after fluid hydration # hyperK - resolved after fluid hydration + insulin administration # lactic acidosis - resolved # HTN - metoprolol as above # DM2, uncontrolled - initially hyperglycemic, then hypoglycemic after basal + bolus insulin given. currently BGs controlled on correction-dose lispro only. not on home meds and A1c >14. started MTF and today will add basal insulin glaragine # COPD, not in acute exacerbation - prn Duonebs # inadequate self-care - CM consultation # VTE ppx - apixaban # dispo - discuss with CM- pt refuses STR and wants to go home with her grandson but we have not been able to reach him
[2021-03-11 16:52] LABS: Glucose, Whole Blood 301 mg/dL (60-115)
[2021-03-11 20:30] LABS: Glucose, Whole Blood 202 mg/dL (60-115)
[2021-03-11 20:45] LABS: Glucose, Whole Blood 195 mg/dL (60-115)
[2021-03-12] MEDS: cefTRIAXone sodium 1 GM in 0.9 % Sodium Chloride 50 ML IV ×2 (00:08→23:38)
[2021-03-12 07:20] VITALS: BP 161/71; PULSE 76; RESP 20; TEMP 37; O2SAT 97
[2021-03-12 07:21] LABS: Glucose, Whole Blood 174 mg/dL (60-115)
[2021-03-12 07:57] VITALS: BP 161/71; PULSE 76
[2021-03-12] MEDS: Metoprolol Succinate ER 50 MG TAB.ER.24H 100 MG PO (07:57)
[2021-03-12] MEDS: metFORMIN HCl 500 MG TABLET PO ×2 (07:58→16:14)
[2021-03-12] MEDS: 0.9 % Sodium Chloride Flush 3 ML SYRINGE IVFLUSH ×3 (07:58→21:31)
[2021-03-12] MEDS: Insulin Lispro 100 UNIT/ML 3 ML VIAL SUBCUT ×2 (07:58→21:31)
[2021-03-12] MEDS: Insulin Glargine,Hum.rec.anlog 100 UNIT/ML 10 ML VIAL SUBCUT (07:59)
[2021-03-12] MEDS: Apixaban 5 MG TABLET PO ×2 (07:59→21:31)
[2021-03-12] MEDS: Insulin Glargine,Hum.rec.anlog 100 UNIT/ML 10 ML VIAL 8 UNIT SUBCUT (08:39)
[2021-03-12 11:08] VITALS: BP 145/70; PULSE 73; RESP 20; TEMP 36.9; O2SAT 96
[2021-03-12 11:13] LABS: Glucose, Whole Blood 103 mg/dL (60-115)
--- NOTE | 2021-03-12 12:42 | P.PNIM_ITS ---
Subjective Subjective Date of Service: 03/12/21 Interval History: 1 self-limited episode of AF/RVR overnight currently NSR feels well but too weak to go home still declines STR Physical Exam Vital Signs: Vital Signs: Last Vital Signs Temp 98.4 F 03/12/21 11:08 Pulse 73 03/12/21 11:08 Resp 20 03/12/21 11:08 BP 145/70 H 03/12/21 11:08 Pulse Ox 96 03/12/21 11:08 Body Mass Index 20.6 Gen: in no acute distress HEENT: sclera anicteric, moist mucus membranes Neck: supple Lungs: clear to auscultation bilaterally Heart: RRR no m/r/g Abd: soft, non-tender, non-distended Ext: no edema Skin: warm/well-perfused Neuro: alert and oriented x3, no focal findings Psych: appropriate affect Objective Data Current Medications Generic Name Dose Route Start Last Admin Trade Name Freq PRN Reason Stop Dose Admin Acetaminophen 650 mg 03/07/21 22:09 Acetaminophen 325 Mg Tablet PO Q6H PRN Pain, Mild (Pain Scale 1-3) Albuterol/Ipratropium 3 ml 03/08/21 06:44 Albuterol/Iprat 2.5/0.5mg 3 Ml Ampul.Neb INHALE Q4H PRN Shortness of Breath/Wheezing Apixaban 5 mg 03/07/21 22:15 03/12/21 07:59 Apixaban 5 Mg Tablet PO 5 mg BID TREVON Administration Docusate Sodium 100 mg 03/07/21 22:09 Docusate Sodium 100 Mg Capsule PO DAILY PRN Constipation Ceftriaxone Sodium 1 gm/ 50 mls @ 100 mls/hr 03/07/21 23:00 03/12/21 01:02 Sodium Chloride IV Infused Q24H TREVON Infusion Diltiazem HCl 125 mg/ Sodium 125 mls @ 0 mls/hr 03/08/21 18:00 03/11/21 04:59 Chloride IVCONT 0 mg/hr .Q0M TREVON 0 mls/hr Titration Protocol Per Protocol Insulin Glargine 8 unit 03/12/21 09:00 03/12/21 08:39 Insulin Glargine,Hum.Rec.Anlog 100 Unit/Ml 10 Ml Vial SUBCUT 8 unit DAILY TREVON Administration Insulin Human Lispro 0 unit 03/08/21 21:00 03/12/21 11:30 Insulin Lispro 100 Unit/Ml 3 Ml Vial SUBCUT Not Given QIDACHS [facility] Protocol Metformin HCl 500 mg 03/10/21 08:15 03/12/21 07:58 Metformin Hcl 500 Mg Tablet PO 500 mg BIDWM TREVON Administration Metoprolol Succinate 100 mg 03/11/21 09:00 03/12/21 07:57 Metoprolol Succinate Er 50 Mg Tab.Er.24h PO 100 mg DAILY TREVON Administration Protocol Oxybutynin Chloride 5 mg 03/07/21 22:15 03/11/21 20:21 Oxybutynin Chloride Er 5 Mg Tab.Er.24 PO 5 mg BEDTIME TREVON Administration Sodium Chloride 3 ml 03/08/21 00:00 03/12/21 07:58 0.9 % Sodium Chloride Flush 3 Ml Syringe IVFLUSH 3 ml QSHIFT TREVON Administration Labs CBC & Chem 7: 03/10/21 05:25 03/10/21 05:25 Labs: Laboratory Results - last 24 hr 03/11/21 03/11/21 03/11/21 16:48 20:26 20:42 POC Glucose 301 H 202 H 195 H 03/12/21 03/12/21 07:17 11:07 POC Glucose 174 H 103 Quality Stroke Does the patient have a stroke diagnosis?: No VTE Prior VTE?: No VTE Risk Level:: Medical - moderate - high VTE Device Contraindication: Treatment Not Indicated VTE Drug Contraindication: N/A - Med Ordered Assessment and Plan (1) Atrial fibrillation with rapid ventricular response: Status: Acute Assessment and Plan: hospital d#6 85yo F with AF, COPD, Crohn's disease, DM2, HTN Life Alert activated after mechanical fall at home, found to be in AF/RVR and concern of inadequate self-care. also hyperglycemic upon presentation # AF/RVR - off diltiazem gtt, metoprolol succinate increased from 50 mg/d to 100 mg/d - continue apixaban # UTI - ceftriaxone d#5, growing Klebsiella pneumoniae resistant only to ampicillin, may change to cefuroxime on d/c to complete 7d # ELIZA - resolved after fluid hydration # hyperK - resolved after fluid hydration + insulin administration # lactic acidosis - resolved # HTN - metoprolol as above # DM2, uncontrolled - initially hyperglycemic, then hypoglycemic after basal + bolus insulin given. currently BGs controlled on correction-dose lispro only. not on home meds and A1c >14. started MTF, low-dose insulin glargine-> will increase from 5 to 8 un its today # COPD, not in acute exacerbation - prn Duonebs # inadequate self-care - CM consultation # VTE ppx - apixaban # dispo - discuss with CM- pt refuses STR and wants to go home with her grandson but we have not been able to reach him and have not heard from him
--- NOTE | 2021-03-12 13:08 | MHC.CLN ---
RE: CONSULT PO INTAKE REMAINS 75-100% DIET RX: 1500DM-APPROPRIATE PT RECEIVING ENSURE CLEAR BID SUPPLEMENT TO PROVIDE 480KCALS, 16G PROTEIN NOTED FRAGILE SKIN CONTINUE TO MONITOR PO INTAKE AND POC
[2021-03-12 15:21] VITALS: BP 145/71; PULSE 89; RESP 19; TEMP 37.2; O2SAT 99
--- NOTE | 2021-03-12 16:17 | MHC.CM.PN ---
Female 85 DX Afib rvr uti fall. Nursing is providing DM education. It was thought that the Pt is new to insulin administration. T/W spoke with Jennifer Baird, the Pts CM. She stated that insulin is not new. She has observed the pt self injection. Financial services consult placed. [facility] is going to give a waiver. Several attempts to make contact, and vms left for grandson. No return calls received. CM will follow.
[2021-03-12 16:36] LABS: Glucose, Whole Blood 184 mg/dL (60-115)
[2021-03-12 19:37] VITALS: BP 119/62; PULSE 77; RESP 19; TEMP 37; O2SAT 97
[2021-03-12 20:56] LABS: Glucose, Whole Blood 316 mg/dL (60-115)
[2021-03-12 23:33] VITALS: BP 125/59; PULSE 68; RESP 17; TEMP 36.9; O2SAT 95
[2021-03-13 03:10] VITALS: BP 139/69; PULSE 66; RESP 17; TEMP 37; O2SAT 95
[2021-03-13 07:27] LABS: Glucose, Whole Blood 122 mg/dL (60-115)
[2021-03-13 07:39] VITALS: BP 138/68; PULSE 68; RESP 20; TEMP 36.9; O2SAT 96
[2021-03-13] MEDS: Insulin Glargine,Hum.rec.anlog 100 UNIT/ML 10 ML VIAL 8 UNIT SUBCUT (08:40)
[2021-03-13] MEDS: 0.9 % Sodium Chloride Flush 3 ML SYRINGE IVFLUSH ×3 (08:40→22:02)
[2021-03-13] MEDS: Metoprolol Succinate ER 50 MG TAB.ER.24H 100 MG PO (08:40)
[2021-03-13] MEDS: metFORMIN HCl 500 MG TABLET PO ×2 (08:41→16:36)
[2021-03-13] MEDS: Apixaban 5 MG TABLET PO ×2 (08:41→22:01)
[2021-03-13 11:14] LABS: Glucose, Whole Blood 163 mg/dL (60-115)
[2021-03-13 11:27] VITALS: BP 131/65; PULSE 72; RESP 20; TEMP 36.4; O2SAT 97
[2021-03-13] MEDS: Insulin Lispro 100 UNIT/ML 3 ML VIAL SUBCUT ×3 (11:40→22:02)
--- NOTE | 2021-03-13 12:03 | HO.PM.IMPN ---
Subjective Subjective Date of Service: 03/13/21 Interval History: still very weak, incontinent of urine still refusing SNF in sinus rhythm Physical Exam Vital Signs: Vital Signs: Last Vital Signs Temp 97.6 F 03/13/21 11:27 Pulse 72 03/13/21 11:27 Resp 20 03/13/21 11:27 BP 131/65 03/13/21 11:27 Pulse Ox 97 03/13/21 11:27 Body Mass Index 20.6 Gen: in no acute distress HEENT: sclera anicteric, moist mucus membranes Neck: supple Lungs: clear to auscultation bilaterally Heart: RRR no m/r/g Abd: soft, non-tender, non-distended Ext: no edema Skin: warm/well-perfused Neuro: alert and oriented x3, no focal findings Psych: appropriate affect Objective Data Current Medications Generic Name Dose Route Start Last Admin Trade Name Freq PRN Reason Stop Dose Admin Acetaminophen 650 mg 03/07/21 22:09 Acetaminophen 325 Mg Tablet PO Q6H PRN Pain, Mild (Pain Scale 1-3) Albuterol/Ipratropium 3 ml 03/08/21 06:44 Albuterol/Iprat 2.5/0.5mg 3 Ml Ampul.Neb INHALE Q4H PRN Shortness of Breath/Wheezing Apixaban 5 mg 03/07/21 22:15 03/13/21 08:41 Apixaban 5 Mg Tablet PO 5 mg BID TREVON Administration Docusate Sodium 100 mg 03/07/21 22:09 Docusate Sodium 100 Mg Capsule PO DAILY PRN Constipation Ceftriaxone Sodium 1 gm/ 50 mls @ 100 mls/hr 03/07/21 23:00 03/13/21 00:12 Sodium Chloride IV Infused Q24H TREVON Infusion Diltiazem HCl 125 mg/ Sodium 125 mls @ 0 mls/hr 03/08/21 18:00 03/11/21 04:59 Chloride IVCONT 0 mg/hr .Q0M TREVON 0 mls/hr Titration Protocol Per Protocol Insulin Glargine 8 unit 03/12/21 09:00 03/13/21 08:40 Insulin Glargine,Hum.Rec.Anlog 100 Unit/Ml 10 Ml Vial SUBCUT 8 unit DAILY TREVON Administration Insulin Human Lispro 0 unit 03/08/21 21:00 03/13/21 11:40 Insulin Lispro 100 Unit/Ml 3 Ml Vial SUBCUT 2 unit QIDACHS TREVON Administration Protocol Metformin HCl 500 mg 03/10/21 08:15 03/13/21 08:41 Metformin Hcl 500 Mg Tablet PO 500 mg BIDWM TREVON Administration Metoprolol Succinate 100 mg 03/11/21 09:00 03/13/21 08:40 Metoprolol Succinate Er 50 Mg Tab.Er.24h PO 100 mg DAILY TREVON Administration Protocol Oxybutynin Chloride 5 mg 03/07/21 22:15 03/12/21 21:30 Oxybutynin Chloride Er 5 Mg Tab.Er.24 PO 5 mg BEDTIME TREVON Administration Sodium Chloride 3 ml 03/08/21 00:00 03/13/21 08:40 0.9 % Sodium Chloride Flush 3 Ml Syringe IVFLUSH 3 ml QSHIFT TREVON Administration Labs CBC & Chem 7: 03/10/21 05:25 03/10/21 05:25 Labs: Laboratory Results - last 24 hr 03/12/21 03/12/21 03/13/21 16:31 20:32 07:19 POC Glucose 184 H 316 H 122 H 03/13/21 11:10 POC Glucose 163 H Microbiology Microbiology Results: Microbiology 03/08/21 07:51 Blood Culture - Final Blood - Venous No growth after 5 days. 03/08/21 07:50 Blood Culture - Final Blood - Venous No growth after 5 days. Quality Stroke Does the patient have a stroke diagnosis?: No VTE Prior VTE?: No VTE Risk Level:: Medical - moderate - high VTE Device Contraindication: Treatment Not Indicated VTE Drug Contraindication: N/A - Med Ordered Assessment and Plan (1) Atrial fibrillation with rapid ventricular response: Status: Acute Assessment and Plan: hospital d#7 85yo F with AF, COPD, Crohn's disease, DM2, HTN Life Alert activated after mechanical fall at home, found to be in AF/RVR and concern of inadequate self-care. also hyperglycemic upon presentation # AF/RVR - off diltiazem gtt, metoprolol succinate increased from 50 mg/d to 100 mg/d, converted to NSR - continue apixaban # UTI - ceftriaxone d#02/23, growing Klebsiella pneumoniae resistant only to ampicillin # ELIZA - resolved after fluid hydration # hyperK - resolved after fluid hydration + insulin administration # lactic acidosis - resolved # HTN - metoprolol as above # DM2, uncontrolled - initially hyperglycemic, then hypoglycemic after basal + bolus insulin given. currently BGs controlled on correction-dose lispro only. not on home meds and A1c >14. started MTF + Lantus 8 units qhs # COPD, not in acute exacerbation - prn Duonebs # inadequate self-care - CM following and in contact with [facility] # VTE ppx - apixaban # dispo - discuss with CM- pt refuses STR and wants to go home with her grandson but we have not been able to reach him and have not heard from him- will continue to try, unable to d/c home safely at this time
--- NOTE | 2021-03-13 13:16 | MHC.CM.PN ---
call was made to lilia malone, via new ph # - [phone]. message was left requesting call back on dc plan - that patient was going to stay c her grandson until her AL situation could be established. at this time pt is refusing str. we are waiting for lilia to call us back. cm to cont. to follow.
--- NOTE | 2021-03-13 13:48 | MHC.CLN ---
F/U PO INTAKE CONTINUES 75-100% DIET RX: 1500DM-APPROPRIATE PT RECEIVING ENSURE CLEAR BID SUPPLEMENT TO PROVIDE 480KCALS, 16G PROTEIN CONTINUE TO MONITOR PO INTAKE AND POC FOLLOWING
[2021-03-13 15:44] VITALS: BP 114/51; PULSE 69; RESP 19; TEMP 37.1; O2SAT 96
[2021-03-13 16:30] LABS: Glucose, Whole Blood 172 mg/dL (60-115)
[2021-03-13 19:49] VITALS: BP 137/65; PULSE 69; RESP 19; TEMP 37; O2SAT 98
[2021-03-13 20:14] LABS: Glucose, Whole Blood 162 mg/dL (60-115)
[2021-03-13] MEDS: cefTRIAXone sodium 1 GM in 0.9 % Sodium Chloride 50 ML IV (22:02)
[2021-03-13 23:21] VITALS: BP 145/64; PULSE 72; RESP 20; TEMP 37.5; O2SAT 96
[2021-03-14] VITALS (12 sets, daily range): BP systolic 92–144; BP diastolic 51–89; PULSE 56–142; RESP 16–20; TEMP 36.7–37.3; O2SAT 93–97
--- NOTE | 2021-03-14 | ECG_ITS ---
Test Reason : RHYTHM CHANGE Blood Pressure : / mmHG Vent. Rate : 147 BPM Atrial Rate : 375 BPM P-R Int : 000 ms QRS Dur : 074 ms QT Int : 274 ms P-R-T Axes : 000 055 -83 degrees QTc Int : 428 ms Atrial fibrillation with rapid ventricular response ST & T wave abnormality, consider inferior ischemia Abnormal ECG When compared with ECG of 07-MAR-2021 21:50, Vent. rate has increased BY [address] now depressed in Lateral leads T wave inversion now evident in Inferior leads Nonspecific T wave abnormality now evident in Lateral leads Referred By: Xavi Brown Electronically Signed By:Isaiah Pacheco
[2021-03-14] MEDS: Metoprolol Tartrate 5 MG/5 ML VIAL IVPUSH (05:45)
[2021-03-14 07:13] LABS: Glucose, Whole Blood 143 mg/dL (60-115)
--- NOTE | 2021-03-14 07:39 | PC.NURSE ---
Patient went into rapid AFib at 0445, HR 140-150. Pt assessed, asymptomatic. MD notified and ordered 5mg IV metoprolol. HR down to 1-teens to 120.
[2021-03-14] MEDS: Metoprolol Succinate ER 50 MG TAB.ER.24H 100 MG PO (07:59)
[2021-03-14] MEDS: metFORMIN HCl 500 MG TABLET PO ×2 (08:00→17:46)
[2021-03-14] MEDS: Insulin Glargine,Hum.rec.anlog 100 UNIT/ML 10 ML VIAL 8 UNIT SUBCUT (08:01)
[2021-03-14] MEDS: dilTIAZem HCL 125 MG in 0.9 % Sodium Chloride 100 ML IVCONT (08:01)
[2021-03-14] MEDS: Apixaban 5 MG TABLET PO ×2 (08:01→21:09)
[2021-03-14] MEDS: 0.9 % Sodium Chloride Flush 3 ML SYRINGE IVFLUSH ×3 (08:05→21:10)
[2021-03-14 11:31] LABS: Glucose, Whole Blood 259 mg/dL (60-115)
[2021-03-14] MEDS: Butalb/Acetamin/Caff 50/325/40 TABLET 1 TAB PO (12:02)
[2021-03-14] MEDS: Insulin Lispro 100 UNIT/ML 3 ML VIAL SUBCUT ×3 (12:06→21:10)
[2021-03-14] MEDS: Digoxin 0.5 MG/2 ML AMPUL 0.25 MG IVPUSH ×2 (12:06→17:45)
--- NOTE | 2021-03-14 14:10 | HO.PM.IMPN ---
Subjective Subjective Date of Service: 03/14/21 Interval History: patient complaining of headache, otherwise denies shortness of breath no palpitations no orthopnea or PND, tele monitor showed atrial fibrillation with ventricular rate 130-140. General headache , no dizziness ,no fever chills. CVS no chest pain, no palpitation. Respiratory no cough no sob. Gastrointestinal no nausea, no vomiting, no abdominal pain Physical Exam Vital Signs: Vital Signs: Last Vital Signs Temp 99.2 F 03/14/21 11:38 Pulse 111 H 03/14/21 12:06 Resp 19 03/14/21 11:38 BP 92/57 L 03/14/21 11:38 Pulse Ox 94 03/14/21 11:38 Body Mass Index 20.6 Gen: in no acute distress Neck: supple, no JVD Lungs: clear to auscultation bilaterally, no rales Heart: irregularly irregular, no m/r/g Abd: soft, non-tender, non-distended Ext: no edema Skin: warm/well-perfused, no rash Neuro: alert and oriented x3, no focal findings Psych: appropriate affect Objective Data Current Medications Generic Name Dose Route Start Last Admin Trade Name Freq PRN Reason Stop Dose Admin Acetaminophen 650 mg 03/07/21 22:09 Acetaminophen 325 Mg Tablet PO Q6H PRN Pain, Mild (Pain Scale 1-3) Albuterol/Ipratropium 3 ml 03/08/21 06:44 Albuterol/Iprat 2.5/0.5mg 3 Ml Ampul.Neb INHALE Q4H PRN Shortness of Breath/Wheezing Apixaban 5 mg 03/07/21 22:15 03/14/21 08:01 Apixaban 5 Mg Tablet PO 5 mg BID TREVON Administration Digoxin 0.25 mg 03/14/21 11:00 03/14/21 12:06 Digoxin 0.5 Mg/2 Ml Ampul IVPUSH 03/14/21 17:01 0.25 mg Q6H TREVON Administration Docusate Sodium 100 mg 03/07/21 22:09 Docusate Sodium 100 Mg Capsule PO DAILY PRN Constipation Ceftriaxone Sodium 1 gm/ 50 mls @ 100 mls/hr 03/07/21 23:00 03/13/21 22:40 Sodium Chloride IV Infused Q24H TREVON Infusion Diltiazem HCl 125 mg/ Sodium 125 mls @ 0 mls/hr 03/08/21 18:00 03/14/21 08:01 Chloride IVCONT 5 mg/hr .Q0M TREVON 5 mls/hr Administration Protocol Per Protocol Insulin Glargine 8 unit 03/12/21 09:00 03/14/21 08:01 Insulin Glargine,Hum.Rec.Anlog 100 Unit/Ml 10 Ml Vial SUBCUT 8 unit DAILY TREVON Administration Insulin Human Lispro 0 unit 03/08/21 21:00 03/14/21 12:06 Insulin Lispro 100 Unit/Ml 3 Ml Vial SUBCUT 6 unit QIDACHS TREVON Administration Protocol Metformin HCl 500 mg 03/10/21 08:15 03/14/21 08:00 Metformin Hcl 500 Mg Tablet PO 500 mg BIDWM TREVON Administration Metoprolol Succinate 100 mg 03/11/21 09:00 03/14/21 07:59 Metoprolol Succinate Er 50 Mg Tab.Er.24h PO 100 mg DAILY TREVON Administration Protocol Oxybutynin Chloride 5 mg 03/07/21 22:15 03/13/21 22:01 Oxybutynin Chloride Er 5 Mg Tab.Er.24 PO 5 mg BEDTIME TREVON Administration Sodium Chloride 3 ml 03/08/21 00:00 03/14/21 08:05 0.9 % Sodium Chloride Flush 3 Ml Syringe IVFLUSH 3 ml QSHIFT TREVON Administration Labs CBC & Chem 7: 03/10/21 05:25 03/10/21 05:25 Labs: Laboratory Results - last 24 hr 03/13/21 03/13/21 03/14/21 16:26 20:10 07:05 POC Glucose 172 H 162 H 143 H 03/14/21 11:23 POC Glucose 259 H Quality Stroke Does the patient have a stroke diagnosis?: No VTE Prior VTE?: No VTE Risk Level:: Medical - moderate - high VTE Device Contraindication: Treatment Not Indicated VTE Drug Contraindication: N/A - Med Ordered Assessment and Plan (1) Atrial fibrillation with rapid ventricular response: Status: Acute (2) 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 also hyperglycemic upon presentation # AF/RVR - patient initially treated with a diltiazem drip that was subsequently discontinued since patient converted to normal sinus rhythm, and was continued on metoprolol succinate 100 mg/d, overnight patient noted to be in AFib with RVR, therefore Cardizem drip restarted, patient noted to have low blood pressure with persistent tachycardia, therefore will give digoxin 0.25 mg x 2 q.6 hours, continue tele monitor, likely related to underlying infection will check Tsh, follow electrolytes, troponin flat continue apixaban # UTI - ceftriaxone d#03/25, growing Klebsiella pneumoniae resistant only to ampicillin, will DC antibiotic after today's dose # ELIZA - resolved after fluid hydration # hyperK - resolved after fluid hydration + insulin administration # lactic acidosis - resolved # HTN - currently hypotension right knee related to AFib continue metoprolol and Cardizem follow BP closely # DM2, uncontrolled - initially hyperglycemic, then hypoglycemic after basal + bolus insulin given. currently blood sugars fluctuating, on correction-dose lispro only. not on home meds and A1c >14. started MTF + Lantus 8 units qhs will gradually increase dose of Lantus # COPD, not in acute exacerbation, continue prn Duonebs # inadequate self-care - CM following and in contact with [facility] # VTE ppx apixaban # dispo will rediscuss short-term rehab placement once medically stable
[2021-03-14 16:17] LABS: Glucose, Whole Blood 174 mg/dL (60-115)
[2021-03-14 20:21] LABS: Glucose, Whole Blood 178 mg/dL (60-115)
[2021-03-15] VITALS (8 sets, daily range): BP systolic 102–125; BP diastolic 53–63; PULSE 76–91; RESP 17–20; TEMP 36.4–37.3; O2SAT 93–96
[2021-03-15 06:53] LABS: Glucose, Whole Blood 119 mg/dL (60-115)
[2021-03-15 07:04] LABS: Anion Gap 11 (12-20); Blood Urea Nitrogen 24 mg/dL (9-16); Calcium 8.8 mg/dL (8.4-10.2); Carbon Dioxide 25 mmol/L (22-29); Chloride 105 mmol/L (96-108); Creatinine Clr Calc Pharmacy 39.2; Estimated Glomerular Filt Rate > 60; Glucose Random 131 mg/dL (60-115); Potassium 5.2 mmol/L (3.3-5.1); Sodium 136 mmol/L (135-145)
[2021-03-15] MEDS: Metoprolol Succinate ER 50 MG TAB.ER.24H 100 MG PO (08:45)
[2021-03-15] MEDS: 0.9 % Sodium Chloride Flush 3 ML SYRINGE IVFLUSH ×2 (08:45→17:00)
[2021-03-15] MEDS: Apixaban 5 MG TABLET PO ×2 (08:45→20:28)
[2021-03-15] MEDS: metFORMIN HCl 500 MG TABLET PO ×2 (08:45→17:01)
[2021-03-15] MEDS: dilTIAZem HCL 125 MG in 0.9 % Sodium Chloride 100 ML IVCONT (08:46)
[2021-03-15] MEDS: Insulin Glargine,Hum.rec.anlog 100 UNIT/ML 10 ML VIAL 8 UNIT SUBCUT (08:46)
[2021-03-15 11:11] LABS: Glucose, Whole Blood 177 mg/dL (60-115)
[2021-03-15] MEDS: Insulin Lispro 100 UNIT/ML 3 ML VIAL SUBCUT ×3 (11:26→20:28)
--- NOTE | 2021-03-15 13:07 | P.CONCA_ITS ---
History of Present Illness History of Present Illness Date of Service: 03/15/21 Requesting physician: Raghav Rangel Chief complaint: A FIB WITH RVR, UTI, FALL Narrative: 85-year-old female who is presenting for urinary tract infection. She had AFib with RVR and has difficult to control heart rates. We have been asked to help with management of atrial fibrillation. She has no palpitations. She denies shortness of breath or chest pain. She is lying flat in bed without any issues. No fevers or chills. She has been on Toprol-XL 100 mg once a day. She is also on Cardizem drip with heart rates in 90s right now. 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 Emphysema lung Erythema intertrigo HTN (hypertension) with goal to be determined Seborrheic keratoses Family History Family History Father History of myocardial infarction Mother History of myocardial infarction Sister History of lymphoma Daughter History of fibromyalgia History of diabetes mellitus, type II Paternal Grandfather History of heart failure Maternal Grandfather History of heart failure Maternal Grandmother History of heart failure Surgical History Surgical History History of abdominoplasty History of appendectomy History of bilateral salpingo-oophorectomy History of cholecystectomy History of hernia repair History of ileostomy History of laparotomy (~1970) History of tonsillectomy and adenoidectomy Social History Social History Household Members: None Housing: Apartment Do you presently have visiting nurse or other home services: Yes ([employer]) Alcohol intake: never Patient Tobacco Use Status: Tobacco use Unknown service: No Current occupational status: retired Meds Allergies Allergy/AdvReac Type Severity Reaction Status Date / Time Iodinated Contrast Media Allergy Severe ANAPHYLAXIS, Verified 12/08/20 13:32 ITCHY EYES methadone [METHADONE] Allergy Intermediate AGITATED Verified 12/08/20 13:32 zolpidem [From AMBIEN] Allergy Intermediate EXTREMELY Verified 12/08/20 13:32 ANXIOUS belladonna alkaloids Allergy Mild UNKNOWN Verified 12/08/20 13:32 halothane Allergy Mild UNKNOWN Verified 12/08/20 13:32 morphine Allergy Mild HIVES, Verified 12/08/20 13:32 AGITATION pentazocine Allergy Mild HIVES Verified 12/08/20 13:32 Sulfa (Sulfonamide Allergy Mild HIVES, N/V Verified 12/08/20 13:32 Antibiotics) , ITCHING codeine [Codeine] Allergy Unknown HIVES Verified 12/08/20 13:32 Halothane Allergy Unknown Unknown Verified 12/08/20 13:32 Active Medications: Current Medications Generic Name Dose Route Start Last Admin Trade Name Freq PRN Reason Stop Dose Admin Acetaminophen 650 mg 03/07/21 22:09 Acetaminophen 325 Mg Tablet PO Q6H PRN Pain, Mild (Pain Scale 1-3) Apixaban 5 mg 03/07/21 22:15 03/15/21 08:45 Apixaban 5 Mg Tablet PO 5 mg BID TREVON Administration Docusate Sodium 100 mg 03/07/21 22:09 Docusate Sodium 100 Mg Capsule PO DAILY PRN Constipation Diltiazem HCl 125 mg/ Sodium 125 mls @ 0 mls/hr 03/08/21 18:00 03/15/21 11:03 Chloride IVCONT 0 mg/hr .Q0M TREVON 0 mls/hr Titration Protocol Per Protocol Insulin Glargine 8 unit 03/12/21 09:00 03/15/21 08:46 Insulin Glargine,Hum.Rec.Anlog 100 Unit/Ml 10 Ml Vial SUBCUT 8 unit DAILY TREVON Administration Insulin Human Lispro 0 unit 03/08/21 21:00 03/15/21 11:26 Insulin Lispro 100 Unit/Ml 3 Ml Vial SUBCUT 2 unit QIDACHS TREVON Administration Protocol Metformin HCl 500 mg 03/10/21 08:15 03/15/21 08:45 Metformin Hcl 500 Mg Tablet PO 500 mg BIDWM TREVON Administration Metoprolol Succinate 100 mg 03/11/21 09:00 03/15/21 08:45 Metoprolol Succinate Er 50 Mg Tab.Er.24h PO 100 mg DAILY TREVON Administration Protocol Oxybutynin Chloride 5 mg 03/07/21 22:15 03/14/21 21:09 Oxybutynin Chloride Er 5 Mg Tab.Er.24 PO 5 mg BEDTIME TREVON Administration Sodium Chloride 3 ml 03/08/21 00:00 03/15/21 08:45 0.9 % Sodium Chloride Flush 3 Ml Syringe IVFLUSH 3 ml QSHIFT TREVON Administration Home Medications Medication Instructions Recorded Confirmed Last Taken Type apixaban [Eliquis] 1 tab PO BID 03/07/21 03/07/21 Unknown History metoprolol succinate 1 tab PO DAILY 03/07/21 03/07/21 Unknown History nystatin 1 appl TOPICAL BID 03/07/21 03/07/21 Unknown History oxybutynin chloride 1 tab PO BEDTIME 03/07/21 03/07/21 Unknown History Physical Exam Vital Signs: Vital Signs: Last Vital Signs Temp 99.1 F 03/15/21 11:30 Pulse 76 03/15/21 11:30 Resp 20 03/15/21 11:30 BP 103/53 L 03/15/21 11:30 Pulse Ox 95 03/15/21 11:30 Body Mass Index 20.6 GENERAL APPEARANCE: in no acute distress, pleasant. NECK: no carotid bruit, no jugular venous distention. SKIN: no suspicious lesions, warm and dry. HEART: no murmurs, irregular rate and rhythm. LUNGS: clear to auscultation bilaterally. ABDOMEN: soft, nontender. EXTREMITIES: no edema. PERIPHERAL PULSES: equal. NEUROLOGIC: No gross deficits, AAO X 3 Results Labs and Meds Result diagrams: 03/10/21 05:25 03/15/21 05:19 Lab results: Laboratory Results - last 24 hr 03/14/21 03/14/21 03/15/21 16:09 20:14 05:19 Sodium 136 Potassium 5.2 H Chloride 105 Carbon Dioxide 25 Anion Gap 11 L BUN 24 H Creatinine 0.86 Estim Creat Clear Calc 39.2 Estimated GFR > 60 POC Glucose 174 H 178 H Random Glucose 131 H D Calcium 8.8 D TSH 0.70 03/15/21 03/15/21 06:48 11:01 Sodium Potassium Chloride Carbon Dioxide Anion Gap BUN Creatinine Estim Creat Clear Calc Estimated GFR POC Glucose 119 H 177 H Random Glucose Calcium TSH Assessment and Plan (1) Atrial fibrillation with rapid ventricular response: Status: Acute 85-year-old female with AFib with RVR the setting of recent urinary tract infection. She is on Eliquis for anticoagulation. She is on Toprol-XL 100 mg. on Cardizem her heart rates are better. I think she can be transitioned to oral Cardizem. I think she can be changed to Cardizem CD 120 mg once a day. We will follow along with you. Thank you for allowing me to participate in the care of your patient. Please feel free to contact me if you have any questions. Procedures Date of Service Date of Service: 03/15/21
[2021-03-15 16:09] LABS: Glucose, Whole Blood 385 mg/dL (60-115)
--- NOTE | 2021-03-15 16:24 | P.PNIM_ITS ---
Subjective Subjective Date of Service: 03/15/21 Interval History: Patient resting comfortably wants to know what is going on with her heart, denies chest pain, denies palpitations no other acute issues overnight complaining of headache that is coming and going requesting for some pain medication. ROS General headache On and off , no dizziness ,no fever chills. CVS no chest pain, no palpitation. Respiratory no cough, no sob. Gastrointestinal no nausea, no vomiting, no abdominal pain Physical Exam Vital Signs: Vital Signs: Last Vital Signs Temp 98.1 F 03/15/21 15:10 Pulse 91 03/15/21 15:10 Resp 17 03/15/21 15:10 BP 125/59 L 03/15/21 15:10 Pulse Ox 93 03/15/21 15:10 Body Mass Index 20.6 Gen: resting comfortably, no acute distress Neck: supple, no JVD Lungs: clear to auscultation bilaterally, no rales Heart: irregularly irregular, no m/r/g Abd: soft, non-tender, non-distended Ext: no edema Skin: no rash Neuro: alert and oriented x3, no focal findings Psych: appropriate affect Objective Data Current Medications Generic Name Dose Route Start Last Admin Trade Name Freq PRN Reason Stop Dose Admin Acetaminophen 650 mg 03/07/21 22:09 Acetaminophen 325 Mg Tablet PO Q6H PRN Pain, Mild (Pain Scale 1-3) Acetaminophen/Butalbital/Caffeine 1 tab 03/15/21 16:20 Butalb/Acetamin/Caff 50/325/40 Tablet PO Q6H PRN Headache Apixaban 5 mg 03/07/21 22:15 03/15/21 08:45 Apixaban 5 Mg Tablet PO 5 mg BID TREVON Administration Diltiazem HCl 60 mg 03/15/21 17:00 Diltiazem Hcl 60 Mg Tablet PO QID [facility] Protocol Docusate Sodium 100 mg 03/07/21 22:09 Docusate Sodium 100 Mg Capsule PO DAILY PRN Constipation Diltiazem HCl 125 mg/ Sodium 125 mls @ 0 mls/hr 03/08/21 18:00 03/15/21 11:03 Chloride IVCONT 0 mg/hr .Q0M TREVON 0 mls/hr Titration Protocol Per Protocol Insulin Glargine 8 unit 03/12/21 09:00 03/15/21 08:46 Insulin Glargine,Hum.Rec.Anlog 100 Unit/Ml 10 Ml Vial SUBCUT 8 unit DAILY TREVON Administration Insulin Human Lispro 0 unit 03/08/21 21:00 03/15/21 11:26 Insulin Lispro 100 Unit/Ml 3 Ml Vial SUBCUT 2 unit QIDACHS [facility] Administration Protocol Metformin HCl 500 mg 03/10/21 08:15 03/15/21 08:45 Metformin Hcl 500 Mg Tablet PO 500 mg BIDWM TREVON Administration Metoprolol Succinate 100 mg 03/11/21 09:00 03/15/21 08:45 Metoprolol Succinate Er 50 Mg Tab.Er.24h PO 100 mg DAILY TREVON Administration Protocol Oxybutynin Chloride 5 mg 03/07/21 22:15 03/14/21 21:09 Oxybutynin Chloride Er 5 Mg Tab.Er.24 PO 5 mg BEDTIME TREVON Administration Sodium Chloride 3 ml 03/08/21 00:00 03/15/21 08:45 0.9 % Sodium Chloride Flush 3 Ml Syringe IVFLUSH 3 ml QSHIFT [facility] Administration Labs CBC & Chem 7: 03/10/21 05:25 03/15/21 05:19 Labs: Laboratory Results - last 24 hr 03/14/21 03/15/21 03/15/21 20:14 05:19 06:48 Sodium 136 Potassium 5.2 H Chloride 105 Carbon Dioxide 25 Anion Gap 11 L BUN 24 H Creatinine 0.86 Estim Creat Clear Calc 39.2 Estimated GFR > 60 POC Glucose 178 H 119 H Random Glucose 131 H D Calcium 8.8 D TSH 0.70 03/15/21 03/15/21 11:01 16:00 Sodium Potassium Chloride Carbon Dioxide Anion Gap BUN Creatinine Estim Creat Clear Calc Estimated GFR POC Glucose 177 H 385 H* Random Glucose Calcium TSH Quality Stroke Does the patient have a stroke diagnosis?: No VTE Prior VTE?: No VTE Risk Level:: Medical - moderate - high VTE Device Contraindication: Treatment Not Indicated VTE Drug Contraindication: N/A - Med Ordered Assessment and Plan (1) Atrial fibrillation with rapid ventricular response: Status: Acute (2) Hyperglycemia due to diabetes mellitus: Status: Acute (3) 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 also hyperglycemic upon presentation # AF/RVR patient initially treated with a diltiazem drip that was subsequently discontinued since patient converted to normal sinus rhythm, and was continued on metoprolol succinate 100 mg/d, overnight patient noted to be in AFib with RVR, therefore Cardizem drip restarted, at rate 5-10 per hour, this morning noted to have heart rate in 80s therefore Cardizem drip discontinued place patient on Cardizem 30 mg q.6 hours, patient received 2 dosages of digoxin 0.25 mg q.6 hours due to persistent ventricular tachycardia with low blood pressure, will avoid continue digoxin due to her age and stable heart rate, TSH 0.70, troponin is elevated but remains flat continue apixaban # UTI - status post ceftriaxone finish 7 day course of treatment, urine culture grew Klebsiella pneumoniae # ELIZA - resolved after fluid hydration # hyperK - resolved after fluid hydration + insulin administration # lactic acidosis - resolved # HTN - stable blood pressure continue metoprolol and Cardizem follow BP closely # DM2, uncontrolled - initially hyperglycemic, then hypoglycemic after basal + bolus insulin given. currently blood sugars fluctuating, on correction-dose lispro and Lantus not on home meds and A1c >14. started MTF + Lantus 8 units qhs will increase dose of Lantus to 12 units # COPD, not in acute exacerbation, continue prn Duonebs # inadequate self-care - CM following and in contact with [facility] # VTE ppx apixaban # dispo will rediscuss short-term rehab placement once medically stable
[2021-03-15] MEDS: dilTIAZem HCL 60 MG TABLET 30 MG PO ×2 (17:00→20:27)
[2021-03-15 20:20] LABS: Glucose, Whole Blood 161 mg/dL (60-115)
--- NOTE | 2021-03-15 20:35 | PC.NURSE ---
spoke to patient about the possibility of placing a jarrett to prevent further skin breakdown around groin/gential region. pt refused and stated i don't want an f catheter. I give up. Let me give up and lay here. patient became very agitated then refused to respond further. will continue to reassess situation.
[2021-03-16] VITALS (13 sets, daily range): BP systolic 104–137; BP diastolic 48–84; PULSE 42–119; RESP 17–20; TEMP 36.4–37.2; O2SAT 94–98
--- NOTE | 2021-03-16 | ECG_ITS ---
Test Reason : hyperkalemia Blood Pressure : / mmHG Vent. Rate : 128 BPM Atrial Rate : 384 BPM P-R Int : 000 ms QRS Dur : 072 ms QT Int : 286 ms P-R-T Axes : 093 066 251 degrees QTc Int : 417 ms Atrial flutter with variable A-V block Nonspecific T wave abnormality Abnormal ECG When compared to the previous EKG of Atrial flutter has replaced Atrial fibrillation Referred By: Xavi Brown Electronically Signed By:ALYSSA SANTIAGO MD
--- NOTE | 2021-03-16 01:34 | PC.NURSE ---
pt hr ranging from 100-130 aflutter. pt asymptomatic and sleeping. Dr. Brown notified, if HR consistently stays in 130's restart cardizem gtt. Pt HR has not sustained in 130's as of this point in time. Will continue to reassess.
[2021-03-16 05:19] LABS: Anion Gap 12 (12-20); Blood Urea Nitrogen 35 mg/dL (9-16); Calcium 8.9 mg/dL (8.4-10.2); Carbon Dioxide 20 mmol/L (22-29); Chloride 107 mmol/L (96-108); Creatinine Clr Calc Pharmacy 25.9; Estimated Glomerular Filt Rate 39; Glucose Random 182 mg/dL (60-115); Potassium 6.1 mmol/L (3.3-5.1); Sodium 133 mmol/L (135-145)
--- NOTE | 2021-03-16 05:22 | PC.NURSE ---
potassium 6.1. Dr. Brown notified. currently waiting for new orders.
[2021-03-16] MEDS: Insulin Regular, Human 100 UNIT/ML 3 ML VIAL IVPUSH (05:36)
[2021-03-16 07:07] LABS: Glucose, Whole Blood 226 mg/dL (60-115)
[2021-03-16] MEDS: Apixaban 5 MG TABLET PO (08:21)
[2021-03-16] MEDS: Metoprolol Succinate ER 50 MG TAB.ER.24H 100 MG PO (08:21)
[2021-03-16] MEDS: metFORMIN HCl 500 MG TABLET PO (08:21)
[2021-03-16] MEDS: dilTIAZem HCL 60 MG TABLET 30 MG PO (08:22)
[2021-03-16] MEDS: 0.9 % Sodium Chloride Flush 3 ML SYRINGE IVFLUSH ×2 (08:23→16:51)
[2021-03-16] MEDS: Insulin Lispro 100 UNIT/ML 3 ML VIAL SUBCUT ×3 (08:24→21:05)
[2021-03-16] MEDS: Insulin Glargine,Hum.rec.anlog 100 UNIT/ML 10 ML VIAL 12 UNIT SUBCUT (08:24)
--- NOTE | 2021-03-16 09:44 | P.PNCA_ITS ---
Subjective Subjective Date of Service: 03/16/21 Principal diagnosis: Atrial fibrillation Interval history: patient denies any cardiac palpitations. However she remains very anxious about her overall condition. Says can you do something about it. she denies any shortness of breath, lightheadedness. Remains in atrial fibrillation rapid ventricular response despite dual therapy. No complaints. Review of Systems Constitutional: Reports no additional constitutional complaints Cardiovascular: Reports no additional cardiovascular complaints Respiratory: Reports no additional respiratory complaints Gastrointestinal: Reports no additional gastrointestinal complaints Reports system reviewed and no additional complaints, except as documented Psychiatric: Reports no additional psychiatric complaints Endocrine: Reports no additional endocrine complaints Physical Exam Vital Signs: Last Vital Signs Temp 97.5 F 03/16/21 07:51 Pulse 119 H 03/16/21 08:22 Resp 18 03/16/21 07:51 BP 137/84 03/16/21 08:22 Pulse Ox 98 03/16/21 07:51 Body Mass Index 20.6 Const General: cooperative, comfortable, alert, awake and anxious Orientation/consciousness: patient oriented x3 Neck Neck: Yes trachea midline, Yes supple and Yes no JVD Resp Effort & Inspection: normal respiratory effort Auscultation: clear to auscultation bilaterally Cardio Jugular venous distension: no JVD Rate: tachycardic Rhythm: abnormal rhythm irregularly irregular Heart sounds: S1 normal heart sound present and S2 normal heart sound present Skin General skin exam: no rashes or lesions noted Neuro General: patient oriented x3 Extrem General: Yes no clubbing, cyanosis or edema Psych Appearance: grossly normal Results Labs and Meds Result diagrams: 03/10/21 05:25 03/16/21 04:35 Lab results: Laboratory Results - last 24 hr 03/15/21 03/15/21 03/15/21 11:01 16:00 20:17 Sodium Potassium Chloride Carbon Dioxide Anion Gap BUN Creatinine Estim Creat Clear Calc Estimated GFR POC Glucose 177 H 385 H* 161 H Random Glucose Calcium 03/16/21 03/16/21 04:35 07:04 Sodium 133 L Potassium 6.1 H* Chloride 107 Carbon Dioxide 20 L Anion Gap 12 BUN 35 H Creatinine 1.30 Estim Creat Clear Calc 25.9 Estimated GFR 39 POC Glucose 226 H Random Glucose 182 H D Calcium 8.9 Progress Note: A&P Assessment and plan (1) Atrial fibrillation with rapid ventricular response: Status: Acute Assessment and Plan: Atrial fibrillation with difficult to control rate despite dual therapy. Will further up titrate Cardizem which short-acting drug 60 mg Q 6 hours. If heart rate is not controlled by later in the afternoon, will add 50 mg of Toprol at nighttime. If the rate remains difficult control by tomorrow morning, will consider synchronized cardioversion. Keep patient NPO past midnight. The plan was discussed with her including risk, benefits, alternatives 2nd abated procedure. She is agreeable to the plan. Her Eliquis should be readjusted to 2.5 mg b.i.d. given her age and her weight. This was already taken care of. Will continue to follow the patient. Continue to treat underlying medical con dition. I have discussed with her to relax and not be so stressed out about overall condition. Will follow up with her Fall Risk Details Current Medications: Current Medications Generic Name Dose Route Start Last Admin Trade Name Freq PRN Reason Stop Dose Admin Acetaminophen 650 mg 03/07/21 22:09 Acetaminophen 325 Mg Tablet PO Q6H PRN Pain, Mild (Pain Scale 1-3) Acetaminophen/Butalbital/Caffeine 1 tab 03/15/21 16:20 Butalb/Acetamin/Caff 50/325/40 Tablet PO Q6H PRN Headache Apixaban 5 mg 03/07/21 22:15 03/16/21 08:21 Apixaban 5 Mg Tablet PO 5 mg BID TREVON Administration Diltiazem HCl 30 mg 03/16/21 09:40 Diltiazem Hcl 30 Mg Tablet PO 03/16/21 09:41 ONCE ONE Protocol Diltiazem HCl 60 mg 03/16/21 14:45 Diltiazem Hcl 60 Mg Tablet PO Q6H TREVON Protocol Docusate Sodium 100 mg 03/07/21 22:09 Docusate Sodium 100 Mg Capsule PO DAILY PRN Constipation Insulin Glargine 12 unit 03/16/21 09:00 03/16/21 08:24 Insulin Glargine,Hum.Rec.Anlog 100 Unit/Ml 10 Ml Vial SUBCUT 12 unit DAILY TREVON Administration Insulin Human Lispro 0 unit 03/08/21 21:00 03/16/21 08:24 Insulin Lispro 100 Unit/Ml 3 Ml Vial SUBCUT 4 unit QIDACHS [facility] Administration Protocol Metformin HCl 500 mg 03/16/21 08:00 03/16/21 08:21 Metformin Hcl 500 Mg Tablet PO 500 mg DAILY@0800 TREVON Administration Metoprolol Succinate 100 mg 03/11/21 09:00 03/16/21 08:21 Metoprolol Succinate Er 50 Mg Tab.Er.24h PO 100 mg DAILY TREVON Administration Protocol Oxybutynin Chloride 5 mg 03/07/21 22:15 03/15/21 20:27 Oxybutynin Chloride Er 5 Mg Tab.Er.24 PO 5 mg BEDTIME TREVON Administration Sodium Chloride 3 ml 03/08/21 00:00 03/16/21 08:23 0.9 % Sodium Chloride Flush 3 Ml Syringe IVFLUSH 3 ml QSHIFT TREVON Administration Time Spent With Patient Time: Total time spent is greater than 50% in coordination of care (as documented) at patient's floor/unit and/or counseling patient: Time with patient: 15 - 24 minutes Progress Note: Quality Stroke Does the patient have a stroke diagnosis?: No Procedures Date of Service Date of Service: 03/16/21
[2021-03-16] MEDS: dilTIAZem HCL 30 MG TABLET PO (09:59)
[2021-03-16 11:03] LABS: Glucose, Whole Blood 123 mg/dL (60-115)
--- NOTE | 2021-03-16 12:26 | MHC.CM.PN ---
Female 85 DX AFIB RVR uti Contact made with Raven Rubi. DP to STR in the [facility]; which is where Greyson lives.Goal is to transition to an CUSTODIAL in that area. A referral has been made to Jennifer Holguin. The Pt has been against going to a SNF. She is thinking about STR @ [place]. A VM was left for Jennifer Pedersen re [facility] waiver. re Financial consult has been completed. CM will continue to follow.
--- NOTE | 2021-03-16 14:11 | P.PNIM_ITS ---
Subjective Subjective Date of Service: 03/16/21 Interval History: offers no acute complaints headache is improved, has been mostly in bed, denies chest pain, no palpitation no other acute issues overnight. ROS General No headache,no dizziness ,no fever chills. CVS no chest pain, no palpitation. Respiratory no cough, no sob. Gastrointestinal no nausea, no vomiting, no abdominal pain Physical Exam Vital Signs: Vital Signs: Last Vital Signs Temp 97.5 F 03/16/21 11:44 Pulse 103 H 03/16/21 11:44 Resp 20 03/16/21 11:44 BP 113/56 L 03/16/21 11:44 Pulse Ox 97 03/16/21 11:44 Body Mass Index 20.6 Gen: resting comfortably, no acute distress Neck: supple, no JVD Lungs: clear to auscultation bilaterally, no rales Heart: irregularly irregular, no m/r/g Abd: soft, non-tender, non-distended Ext: no edema Skin: no rash Neuro: alert and oriented x3, no focal findings Psych: appropriate affect Objective Data Current Medications Generic Name Dose Route Start Last Admin Trade Name Freq PRN Reason Stop Dose Admin Acetaminophen 650 mg 03/07/21 22:09 Acetaminophen 325 Mg Tablet PO Q6H PRN Pain, Mild (Pain Scale 1-3) Acetaminophen/Butalbital/Caffeine 1 tab 03/15/21 16:20 Butalb/Acetamin/Caff 50/325/40 Tablet PO Q6H PRN Headache Apixaban 2.5 mg 03/16/21 21:00 Apixaban 2.5 Mg Tablet PO BID [facility] Diltiazem HCl 60 mg 03/16/21 14:45 Diltiazem Hcl 60 Mg Tablet PO Q6H [facility] Protocol Docusate Sodium 100 mg 03/07/21 22:09 Docusate Sodium 100 Mg Capsule PO DAILY PRN Constipation Insulin Glargine 12 unit 03/16/21 09:00 03/16/21 08:24 Insulin Glargine,Hum.Rec.Anlog 100 Unit/Ml 10 Ml Vial SUBCUT 12 unit DAILY [facility] Administration Insulin Human Lispro 0 unit 03/08/21 21:00 03/16/21 12:05 Insulin Lispro 100 Unit/Ml 3 Ml Vial SUBCUT Not Given QIDACHS [facility] Protocol Metformin HCl 500 mg 03/16/21 08:00 03/16/21 08:21 Metformin Hcl 500 Mg Tablet PO 500 mg DAILY@0800 TREVON Administration Metoprolol Succinate 100 mg 03/11/21 09:00 03/16/21 08:21 Metoprolol Succinate Er 50 Mg Tab.Er.24h PO 100 mg DAILY TREVON Administration Protocol Oxybutynin Chloride 5 mg 03/07/21 22:15 03/15/21 20:27 Oxybutynin Chloride Er 5 Mg Tab.Er.24 PO 5 mg BEDTIME TREVON Administration Sodium Chloride 3 ml 03/08/21 00:00 03/16/21 08:23 0.9 % Sodium Chloride Flush 3 Ml Syringe IVFLUSH 3 ml QSHIFT TREVON Administration Labs CBC & Chem 7: 03/10/21 05:25 03/16/21 04:35 Labs: Laboratory Results - last 24 hr 03/15/21 03/15/21 03/16/21 16:00 20:17 04:35 Sodium 133 L Potassium 6.1 H* Chloride 107 Carbon Dioxide 20 L Anion Gap 12 BUN 35 H Creatinine 1.30 Estim Creat Clear Calc 25.9 Estimated GFR 39 POC Glucose 385 H* 161 H Random Glucose 182 H D Calcium 8.9 03/16/21 03/16/21 07:04 10:57 Sodium Potassium Chloride Carbon Dioxide Anion Gap BUN Creatinine Estim Creat Clear Calc Estimated GFR POC Glucose 226 H 123 H Random Glucose Calcium Quality Stroke Does the patient have a stroke diagnosis?: No VTE Prior VTE?: No VTE Risk Level:: Medical - moderate - high VTE Device Contraindication: Treatment Not Indicated VTE Drug Contraindication: N/A - Med Ordered Assessment and Plan (1) Atrial fibrillation with rapid ventricular response: Status: Acute (2) UTI (urinary tract infection): Status: Acute Assessment and Plan: 85yo F with AF, COPD, Crohn's disease, DM2, HTN Life Alert activated after mechanical fall at home, found to be in AF/RVR and concern of inadequate self-care. also hyperglycemic upon presentation # AF/RVR patient remained asymptomatic with no chest pain, lightheadedness, palpitation or near-syncope. patient initially treated with a diltiazem drip that was subsequently discontinued since patient converted to normal sinus rhythm, and was continued on metoprolol succinate 100 mg/d, subsequently converted back to AFib with RVR, therefore Cardizem drip restarted, at rate 5-10 per hour, patient transitioned to by mouth Cardizem 30 mg q.6 hours, her ventricular rate remains elevated therefore dose of digoxin increased to 60 mg q.6 hours by Cardiology, if heart rate improved will transition to Cardizem CD 240 mg daily, will follow blood pressure and pulse closely TSH 0.70, troponin is elevated but remains flat continue apixaban # UTI - status post ceftriaxone finish 7 day course of treatment, urine culture grew Klebsiella pneumoniae # ELIZA - resolved after fluid hydration # hyperK - resolved after fluid hydration + insulin administration # lactic acidosis - resolved # HTN - stable blood pressure continue metoprolol and Cardizem follow BP closely # DM2, uncontrolled - initially hyperglycemic, then hypoglycemic after basal + bolus insulin given. blood sugar improved with increasing dose of Lantus to 12 units, continue correction-dose lispro ,A1c >14. started MTF # COPD, not in acute exacerbation, continue prn Duonebs # inadequate self-care - CM following and in contact with [facility] # VTE ppx apixaban # dispo patient refusing short-term rehab discussed DC plan with social service.
[2021-03-16] MEDS: dilTIAZem HCL 60 MG TABLET PO (15:48)
[2021-03-16 16:45] LABS: Glucose, Whole Blood 267 mg/dL (60-115)
--- NOTE | 2021-03-16 18:28 | PC.NURSE ---
PT HR on monitor 40s appears to be in a slow fib/flutter - pt assessed -asymptomatic at this time MD notified - stated to monitor for now and d/destiney her pm cardizem dose. Will cont to monitor and pass onto oncoming RN
[2021-03-16] MEDS: Butalb/Acetamin/Caff 50/325/40 TABLET 1 TAB PO (19:48)
[2021-03-16 20:27] LABS: Glucose, Whole Blood 357 mg/dL (60-115)
[2021-03-16] MEDS: Apixaban 2.5 MG TABLET PO (21:05)
[2021-03-17] VITALS (7 sets, daily range): BP systolic 101–146; BP diastolic 61–68; PULSE 83–146; RESP 18–24; TEMP 36.3–37.1; O2SAT 97–98
--- NOTE | 2021-03-17 04:38 | PC.NURSE ---
2050: pt POC 357. notified per sliding scale protocol, ordered to give 10 units.
--- NOTE | 2021-03-17 05:19 | PC.NURSE ---
pt hr jumping from high 90's to 130's aflutter. pt continues to be asymptomatic and sleeping. MD notified. Currently awaiting orders.
[2021-03-17 06:56] LABS: Anion Gap 14 (12-20); Blood Urea Nitrogen 49 mg/dL (9-16); Calcium 9.2 mg/dL (8.4-10.2); Carbon Dioxide 21 mmol/L (22-29); Chloride 107 mmol/L (96-108); Creatinine Clr Calc Pharmacy 26.5; Estimated Glomerular Filt Rate 40; Glucose Random 108 mg/dL (60-115); Sodium 136 mmol/L (135-145)
[2021-03-17 07:33] LABS: Glucose, Whole Blood 136 mg/dL (60-115)
[2021-03-17] MEDS: Insulin Regular, Human 100 UNIT/ML 3 ML VIAL 10 UNIT IVPUSH (08:08)
[2021-03-17] MEDS: Dextrose 10 % 1,000 ML 50 ML IVCONT (08:08)
[2021-03-17] MEDS: 0.9 % Sodium Chloride Flush 3 ML SYRINGE IVFLUSH ×2 (08:09→16:44)
[2021-03-17] MEDS: Apixaban 2.5 MG TABLET PO ×2 (09:34→20:16)
[2021-03-17] MEDS: Metoprolol Succinate ER 50 MG TAB.ER.24H 100 MG PO (09:35)
[2021-03-17] MEDS: metFORMIN HCl 500 MG TABLET PO (09:35)
[2021-03-17] MEDS: Insulin Glargine,Hum.rec.anlog 100 UNIT/ML 10 ML VIAL 12 UNIT SUBCUT (09:40)
--- NOTE | 2021-03-17 10:30 | PM.PNCARD ---
Subjective Subjective Date of Service: 03/17/21 Principal diagnosis: Atrial fibrillation Interval history: On increased dose of Cardizem and her metoprolol, last night she developed slow heart rate in the 38 range. Overnight Cardizem was then withheld. This morning again she has rapid ventricular rate. She denies any cardiac complaints. Denies any palpitations, chest pain, shortness of breath. Very anxious about this. Her potassium level is noted to be 6 Review of Systems Cardiovascular: Reports no additional cardiovascular complaints Respiratory: Reports no additional respiratory complaints Gastrointestinal: Reports no additional gastrointestinal complaints Reports system reviewed and no additional complaints, except as documented Physical Exam Vital Signs: Last Vital Signs Temp 97.4 F 03/17/21 07:18 Pulse 116 H 03/17/21 07:18 Resp 18 03/17/21 07:18 BP 118/66 03/17/21 09:35 Pulse Ox 97 03/17/21 07:18 Body Mass Index 20.6 Const General: cooperative, comfortable, no acute distress and anxious Nutritional Appearance: thin Orientation/consciousness: patient oriented x3 Neck Neck: Yes trachea midline, Yes supple and Yes no JVD Resp Effort & Inspection: normal respiratory effort Auscultation: clear to auscultation bilaterally Cardio Rate: tachycardic Rhythm: abnormal rhythm irregularly irregular Heart sounds: S1 normal heart sound present and S2 normal heart sound present GI Auscultation: normal bowel sounds Skin General skin exam: no rashes or lesions noted Neuro General: patient oriented x3 Extrem General: Yes no clubbing, cyanosis or edema Results Labs and Meds Result diagrams: 03/10/21 05:25 03/17/21 05:33 Lab results: Laboratory Results - last 24 hr 03/16/21 03/16/21 03/16/21 10:57 16:38 20:09 Sodium Potassium Chloride Carbon Dioxide Anion Gap BUN Creatinine Estim Creat Clear Calc Estimated GFR POC Glucose 123 H 267 H 357 H* Random Glucose Calcium 03/17/21 03/17/21 05:33 07:15 Sodium 136 Potassium 6.0 H* Chloride 107 Carbon Dioxide 21 L Anion Gap 14 BUN 49 H Creatinine 1.27 Estim Creat Clear Calc 26.5 Estimated GFR 40 POC Glucose 136 H Random Glucose 108 D Calcium 9.2 Progress Note: A&P Assessment and plan (1) Atrial fibrillation with rapid ventricular response: Status: Acute Assessment and Plan: atrial fibrillation was wearing rate. Not persistent tachycardia. Developed slow heart rate with increase Cardizem dose. Will switch Cardizem CD 1 80 mg to nighttime and continue to use Toprol-XL 100 mg in the morning. Continue full oral anticoagulation at 2.5 mg b.i.d.. Given that she does not have persistent tachycardia and no symptoms as well as hyperkalemia will cancel cardioversion for today. Will follow as outpatient. Please consult us if there is any further need. Thank you for allowing us to partake in the care Fall Risk Details Current Medications: Current Medications Generic Name Dose Route Start Last Admin Trade Name Freq PRN Reason Stop Dose Admin Acetaminophen 650 mg 03/07/21 22:09 Acetaminophen 325 Mg Tablet PO Q6H PRN Pain, Mild (Pain Scale 1-3) Acetaminophen/Butalbital/Caffeine 1 tab 03/15/21 16:20 03/16/21 19:48 Butalb/Acetamin/Caff 50/325/40 Tablet PO 1 tab Q6H PRN Administration Headache Apixaban 2.5 mg 03/16/21 21:00 03/17/21 09:34 Apixaban 2.5 Mg Tablet PO 2.5 mg BID TREVON Administration Docusate Sodium 100 mg 03/07/21 22:09 Docusate Sodium 100 Mg Capsule PO DAILY PRN Constipation Dextrose 1,000 mls @ 50 mls/hr 03/17/21 07:45 03/17/21 08:08 D10 IVCONT 50 mls/hr .Q20H TREVON Administration Insulin Glargine 12 unit 03/16/21 09:00 03/17/21 09:40 Insulin Glargine,Hum.Rec.Anlog 100 Unit/Ml 10 Ml Vial SUBCUT 12 unit DAILY TREVON Administration Insulin Human Lispro 0 unit 03/08/21 21:00 03/17/21 07:35 Insulin Lispro 100 Unit/Ml 3 Ml Vial SUBCUT Not Given QIDACHS [facility] Protocol Metformin HCl 500 mg 03/16/21 08:00 03/17/21 09:35 Metformin Hcl 500 Mg Tablet PO 500 mg DAILY@0800 TREVON Administration Metoprolol Succinate 100 mg 03/11/21 09:00 03/17/21 09:35 Metoprolol Succinate Er 50 Mg Tab.Er.24h PO 100 mg DAILY TREVON Administration Protocol Oxybutynin Chloride 5 mg 03/07/21 22:15 03/16/21 21:04 Oxybutynin Chloride Er 5 Mg Tab.Er.24 PO 5 mg BEDTIME TREVON Administration Sodium Chloride 3 ml 03/08/21 00:00 03/17/21 08:09 0.9 % Sodium Chloride Flush 3 Ml Syringe IVFLUSH 3 ml QSHIFT TREVON Administration Time Spent With Patient Time: Total time spent is greater than 50% in coordination of care (as documented) at patient's floor/unit and/or counseling patient: Time with patient: 25 - 35 minutes Progress Note: Quality Stroke Does the patient have a stroke diagnosis?: No Procedures Date of Service Date of Service: 03/17/21
[2021-03-17 11:12] LABS: Glucose, Whole Blood 142 mg/dL (60-115)
[2021-03-17 11:15] LABS: Potassium 5.3 mmol/L (3.3-5.1)
--- NOTE | 2021-03-17 11:22 | HO.PM.IMPN ---
Subjective Subjective Date of Service: 03/17/21 Interval History: offers no acute complaints of chest pain or palpitation is still refusing to go to rehab, adamant that she wishes to be discharged home, noted to have hyperkalemia this morning. ROS General No headache,no dizziness ,no fever chills. CVS no chest pain, no palpitation. Respiratory no cough, no sob. Gastrointestinal no nausea, no vomiting, no abdominal pain Physical Exam Vital Signs: Vital Signs: Last Vital Signs Temp 97.4 F 03/17/21 07:18 Pulse 116 H 03/17/21 07:18 Resp 18 03/17/21 07:18 BP 118/66 03/17/21 09:35 Pulse Ox 97 03/17/21 07:18 Body Mass Index 20.6 Gen: resting comfortably, no acute distress Neck: supple, no JVD Lungs: clear to auscultation bilaterally, no rales Heart: irregularly irregular, no m/r/g Abd: soft, non-tender, non-distended Ext: no edema Skin: no rash Neuro: alert and oriented x3, no focal findings Psych: appropriate affect Objective Data Current Medications Generic Name Dose Route Start Last Admin Trade Name Freq PRN Reason Stop Dose Admin Acetaminophen 650 mg 03/07/21 22:09 Acetaminophen 325 Mg Tablet PO Q6H PRN Pain, Mild (Pain Scale 1-3) Acetaminophen/Butalbital/Caffeine 1 tab 03/15/21 16:20 03/16/21 19:48 Butalb/Acetamin/Caff 50/325/40 Tablet PO 1 tab Q6H PRN Administration Headache Apixaban 2.5 mg 03/16/21 21:00 03/17/21 09:34 Apixaban 2.5 Mg Tablet PO 2.5 mg BID TREVON Administration Docusate Sodium 100 mg 03/07/21 22:09 Docusate Sodium 100 Mg Capsule PO DAILY PRN Constipation Dextrose 1,000 mls @ 50 mls/hr 03/17/21 07:45 03/17/21 08:08 D10 IVCONT 50 mls/hr .Q20H TREVON Administration Insulin Glargine 12 unit 03/16/21 09:00 03/17/21 09:40 Insulin Glargine,Hum.Rec.Anlog 100 Unit/Ml 10 Ml Vial SUBCUT 12 unit DAILY TREVON Administration Insulin Human Lispro 0 unit 03/08/21 21:00 03/17/21 07:35 Insulin Lispro 100 Unit/Ml 3 Ml Vial SUBCUT Not Given QIDACHS [facility] Protocol Metformin HCl 500 mg 03/16/21 08:00 03/17/21 09:35 Metformin Hcl 500 Mg Tablet PO 500 mg DAILY@0800 TREVON Administration Metoprolol Succinate 100 mg 03/11/21 09:00 03/17/21 09:35 Metoprolol Succinate Er 50 Mg Tab.Er.24h PO 100 mg DAILY TREVON Administration Protocol Oxybutynin Chloride 5 mg 03/07/21 22:15 03/16/21 21:04 Oxybutynin Chloride Er 5 Mg Tab.Er.24 PO 5 mg BEDTIME TREVON Administration Sodium Chloride 3 ml 03/08/21 00:00 03/17/21 08:09 0.9 % Sodium Chloride Flush 3 Ml Syringe IVFLUSH 3 ml QSHIFT [facility] Administration Labs CBC & Chem 7: 03/10/21 05:25 03/17/21 10:46 Labs: Laboratory Results - last 24 hr 03/16/21 03/16/21 03/17/21 16:38 20:09 05:33 Sodium 136 Potassium 6.0 H* Chloride 107 Carbon Dioxide 21 L Anion Gap 14 BUN 49 H Creatinine 1.27 Estim Creat Clear Calc 26.5 Estimated GFR 40 POC Glucose 267 H 357 H* Random Glucose 108 D Calcium 9.2 03/17/21 03/17/21 03/17/21 07:15 10:46 11:04 Sodium Potassium 5.3 H Chloride Carbon Dioxide Anion Gap BUN Creatinine Estim Creat Clear Calc Estimated GFR POC Glucose 136 H 142 H Random Glucose Calcium Quality Stroke Does the patient have a stroke diagnosis?: No VTE Prior VTE?: No VTE Risk Level:: Medical - moderate - high VTE Device Contraindication: Treatment Not Indicated VTE Drug Contraindication: N/A - Med Ordered Assessment and Plan (1) Atrial fibrillation with rapid ventricular response: Status: Acute (2) UTI (urinary tract infection): Status: Acute (3) Leukocytosis: Status: Acute (4) Hyperkalemia: Status: Acute (5) Lactic acidosis: Status: Acute Assessment and Plan: 85yo F with AF, COPD, Crohn's disease, DM2, HTN Life Alert activated after mechanical fall at home, found to be in AF/RVR and concern of inadequate self-care. also hyperglycemic upon presentation # AF/RVR denies chest pain,no lightheadedness, palpitation or near-syncope. noted to have bradycardia last evening,heart rate dipped into 40s, therefore cardizem was stopped this morning heart rate is around 100 , case discussed with Dr. Wilson will place patient on Toprol-XL 50 mg at nighttime and continue Toprol XL 100 at a.m. TSH 0.70, troponin is elevated but remains flat continue apixaban dose adjusted to age and weight # hyperkalemia not on NSAIDs or Warren inhibitors question etiology question RTA will treat patient with insulin and glucose repeat potassium level closely # UTI - status post ceftriaxone finish 7 day course of treatment, urine culture grew Klebsiella pneumoniae # ELIZA - resolved after fluid hydration # hyperK - resolved after fluid hydration + insulin administration # lactic acidosis - resolved # HTN - stable blood pressure continue metoprolol # DM2, uncontrolled - initially hyperglycemic, then hypoglycemic after basal + bolus insulin given. blood sugar improved with increasing dose of Lantus to 12 units, continue correction-dose lispro ,A1c >14. continue metformin # COPD, not in acute exacerbation, continue prn Duonebs # inadequate self-care - CM following and in contact with [facility] # VTE ppx apixaban # dispo patient refusing short-term rehab discussed DC plan with social service.
--- NOTE | 2021-03-17 16:08 | PC.NURSE ---
Skin assessment completed today. Patient has raw macerated skin in fernando area, groin, anus and buttocks. Interdry used in groin and EPC cream to the other areas. A purewick is in place for incontinence.
[2021-03-17 16:24] LABS: Glucose, Whole Blood 293 mg/dL (60-115)
[2021-03-17] MEDS: Insulin Lispro 100 UNIT/ML 3 ML VIAL SUBCUT ×2 (16:40→20:34)
[2021-03-17] MEDS: Butalb/Acetamin/Caff 50/325/40 TABLET 1 TAB PO (20:14)
[2021-03-17] MEDS: Metoprolol Succinate ER 50 MG TAB.ER.24H PO (20:15)
[2021-03-17 20:30] LABS: Glucose, Whole Blood 198 mg/dL (60-115)
[2021-03-18] MEDS: 0.9 % Sodium Chloride Flush 3 ML SYRINGE IVFLUSH ×2 (00:06→08:17)
[2021-03-18 03:28] VITALS: BP 119/64; PULSE 63; RESP 18; TEMP 36.6; O2SAT 97
[2021-03-18 07:02] LABS: Anion Gap 13 (12-20); Blood Urea Nitrogen 48 mg/dL (9-16); Carbon Dioxide 22 mmol/L (22-29); Chloride 108 mmol/L (96-108); Creatinine Clr Calc Pharmacy 26.5; Estimated Glomerular Filt Rate 40; Glucose Random 107 mg/dL (60-115); Potassium 5.6 mmol/L (3.3-5.1); Sodium 137 mmol/L (135-145)
[2021-03-18 07:03] VITALS: BP 104/62; PULSE 88; RESP 16; TEMP 36.1; O2SAT 97
[2021-03-18 07:08] LABS: Glucose, Whole Blood 110 mg/dL (60-115)
[2021-03-18] MEDS: Insulin Glargine,Hum.rec.anlog 100 UNIT/ML 10 ML VIAL 12 UNIT SUBCUT (08:09)
[2021-03-18] MEDS: Apixaban 2.5 MG TABLET PO (08:09)
[2021-03-18] MEDS: metFORMIN HCl 500 MG TABLET PO (08:09)
[2021-03-18 08:10] VITALS: BP 116/72; PULSE 98
[2021-03-18] MEDS: Metoprolol Succinate ER 50 MG TAB.ER.24H 100 MG PO (08:10)
--- NOTE | 2021-03-18 09:30 | P.PNCA_ITS ---
Subjective Subjective Date of Service: 03/18/21 Principal diagnosis: Atrial fibrillation Interval history: no cardiac symptoms to report at current time. Rate is be tter controlled. Denies palpitations, lightheadedness, syncope. Less anxious today. No signs of heart failure. Review of Systems Constitutional: Reports no additional constitutional complaints Cardiovascular: Reports no additional cardiovascular complaints Respiratory: Reports no additional respiratory complaints Genitourinary: Reports no additional female genitourinary complaints Reports system reviewed and no additional complaints, except as documented Psychiatric: Reports no additional psychiatric complaints Physical Exam Vital Signs: Last Vital Signs Temp 97.0 F 03/18/21 07:03 Pulse 98 03/18/21 08:10 Resp 16 03/18/21 07:03 BP 116/72 03/18/21 08:10 Pulse Ox 97 03/18/21 07:03 Body Mass Index 20.6 Const General: cooperative, comfortable and no acute distress Nutritional Appearance: thin Orientation/consciousness: patient oriented x3 Neck Neck: Yes trachea midline, Yes supple and Yes no JVD Resp Effort & Inspection: normal respiratory effort Auscultation: clear to auscultation bilaterally and diminished lung sounds Cardio Jugular venous distension: no JVD Rhythm: abnormal rhythm irregularly irregular Heart sounds: S1 normal heart sound present and S2 normal heart sound present Skin General skin exam: no rashes or lesions noted Neuro General: patient oriented x3 and no focal motor deficits Extrem General: Yes no clubbing, cyanosis or edema Results Labs and Meds Result diagrams: 03/10/21 05:25 03/18/21 05:26 Lab results: Laboratory Results - last 24 hr 03/17/21 03/17/21 03/17/21 10:46 11:04 16:17 Sodium Potassium 5.3 H Chloride Carbon Dioxide Anion Gap BUN Creatinine Estim Creat Clear Calc Estimated GFR POC Glucose 142 H 293 H Random Glucose Calcium 03/17/21 03/18/21 03/18/21 20:24 05:26 07:05 Sodium 137 Potassium 5.6 H Chloride 108 Carbon Dioxide 22 Anion Gap 13 BUN 48 H Creatinine 1.27 Estim Creat Clear Calc 26.5 Estimated GFR 40 POC Glucose 198 H 110 Random Glucose 107 Calcium 9.0 Progress Note: A&P Assessment and plan (1) Atrial fibrillation with rapid ventricular response: Status: Acute Assessment and Plan: Atrial fibrillation with rapid ventricular response with better rate control. Continue metoprolol 100 mg in morning and 180 mg of Cardizem CD at nighttime. Continue Eliquis 2.5 mg b.i.d.. Continue manage underlying medical conditions especially hyperkalemia. Increase oral fluid intake was discussed with the patient. From cardiac perspective patient can be discharged and will follow up as outpatient after Holter monitor. Thank you for allowing us to partake in her care Fall Risk Details Current Medications: Current Medications Generic Name Dose Route Start Last Admin Trade Name Freq PRN Reason Stop Dose Admin Acetaminophen 650 mg 03/07/21 22:09 Acetaminophen 325 Mg Tablet PO Q6H PRN Pain, Mild (Pain Scale 1-3) Acetaminophen/Butalbital/Caffeine 1 tab 03/15/21 16:20 03/17/21 20:14 Butalb/Acetamin/Caff 50/325/40 Tablet PO 1 tab Q6H PRN Administration Headache Apixaban 2.5 mg 03/16/21 21:00 03/18/21 08:09 Apixaban 2.5 Mg Tablet PO 2.5 mg BID TREVON Administration Docusate Sodium 100 mg 03/07/21 22:09 Docusate Sodium 100 Mg Capsule PO DAILY PRN Constipation Insulin Glargine 12 unit 03/16/21 09:00 03/18/21 08:09 Insulin Glargine,Hum.Rec.Anlog 100 Unit/Ml 10 Ml Vial SUBCUT 12 unit DAILY TREVON Administration Insulin Human Lispro 0 unit 03/08/21 21:00 03/18/21 07:13 Insulin Lispro 100 Unit/Ml 3 Ml Vial SUBCUT Not Given QIDACHS TREVON Protocol Metformin HCl 500 mg 03/16/21 08:00 03/18/21 08:09 Metformin Hcl 500 Mg Tablet PO 500 mg DAILY@0800 TREVON Administration Metoprolol Succinate 100 mg 03/11/21 09:00 03/18/21 08:10 Metoprolol Succinate Er 50 Mg Tab.Er.24h PO 100 mg DAILY TREVON Administration Protocol Metoprolol Succinate 50 mg 03/17/21 21:00 03/17/21 20:15 Metoprolol Succinate Er 50 Mg Tab.Er.24h PO 50 mg BEDTIME TREVON Administration Protocol Oxybutynin Chloride 5 mg 03/07/21 22:15 03/17/21 20:15 Oxybutynin Chloride Er 5 Mg Tab.Er.24 PO 5 mg BEDTIME TREVON Administration Sodium Chloride 3 ml 03/08/21 00:00 03/18/21 08:17 0.9 % Sodium Chloride Flush 3 Ml Syringe IVFLUSH 3 ml QSHIFT TREVON Administration Time Spent With Patient Time: Total time spent is greater than 50% in coordination of care (as documented) at patient's floor/unit and/or counseling patient: Time with patient: 15 - 24 minutes Progress Note: Quality Stroke Does the patient have a stroke diagnosis?: No Procedures Date of Service Date of Service: 03/18/21
[2021-03-18 09:36] VITALS: BP 116/72; PULSE 98
[2021-03-18] MEDS: Sodium Polystyrene Sulfon/Sorb 15 GM/60 ML ORAL.SUSP 30 GM PO (10:40)
[2021-03-18 11:03] VITALS: BP 107/58; PULSE 103; RESP 16; TEMP 36.2; O2SAT 96
[2021-03-18 11:08] LABS: Glucose, Whole Blood 224 mg/dL (60-115)
--- NOTE | 2021-03-18 11:51 | MHC.CLN ---
F/U PO INTAKE CONTINUES 75-100% DIET RX: 2200DM-DIET OVER EXCEEDS ESTIMATED KCAL NEEDS RECOMMEND TO RE-START 1500DM DIET CONTINUE TO MONITOR PO INTAKE AND POC FOLLOWING
[2021-03-18] MEDS: Insulin Lispro 100 UNIT/ML 3 ML VIAL SUBCUT (12:04)
[2021-03-18 14:28] LABS: COVID-19 Test Negative (Negative)
--- NOTE | 2021-03-18 14:41 | PM.DS ---
DS: Providers Provider Date of Service: 03/18/21 Date of admission: 03/07/21 22:03 Primary care physician: Manuel Jeff MD Consults: 03/08/21 01:30 Consult Respiratory Therapy Routine Reason for consultation: SCOTT 03/15/21 12:47 Consult to Cardiology Routine Consulting Provider: Isaiah Pacheco Reason for consultation: atrial fib with rvr Has provider been notified: Yes DS: Diagnosis Discharge Diagnosis (1) Atrial fibrillation with rapid ventricular response: Status: Acute DS: Medications Discharge Medications Home Medications: Home Medications Medication Instructions Recorded Confirmed oxybutynin chloride 1 tab PO BEDTIME 03/07/21 03/07/21 Previous Rx's Medication Instructions Recorded acetaminophen 650 mg PO Q6H PRN #30 tab 03/18/21 apixaban [Eliquis] 2.5 mg PO BID #60 tab 03/18/21 docusate sodium 100 mg PO DAILY PRN #30 cap 03/18/21 insulin glargine [Lantus U-100 12 unit SUBCUT DAILY #10 ml 03/18/21 Insulin] metformin 500 mg PO DAILY@0800 #30 tab 03/18/21 metoprolol succinate 50 mg PO BEDTIME #30 tab 03/18/21 metoprolol succinate 100 mg PO DAILY #30 tab 03/18/21 DS: Summary Hospital Course Hospital Course: history of presenting illness Chief Complaint: fall This is an 85-year-old female with past medical history of AFib, COPD, Crohn's disease, diabetes, HTN, who presents to the hospital after experiencing a fall at home. According to the patient she was sitting down, tried to get a by placing her arms on the table, and the table flipped over and everything fell along with her. Patient denies any dizziness, no loss of consciousness, no head injury, she fell on her knees with no knee pain. She had difficulty getting herself up and pressed her Life Alert button which prompted EMS to come to her house. Per EMS patient is living situation appears to be very poor and elderly services were contacted. Patient herself denies any worsening cough, sputum production, and no worsening of her shortness of breath which she reports are all chronic in the setting of her COPD. She denies any abdominal pain nausea or vomiting, no chest pain, no diarrhea constipation, reports urinary urgency and dysuria and feels like she has urinary infection for about a week now although did not seek any medical help. denies any fever or chills, no headache or change in vision, no weakness numbness or tingling. On arrival to the ED patient's vital significant for temp of 97.5?, heart rate of 154, respiratory of 20, lupus XI with her 3, satting 96% on room air Labs are significant for WBC count of 10.9, sodium of 133, potassium 5.6, BUN of 25, creatinine of 1.35, glucose of 555, lactic acid of 2.8, UA positive for WBC with no evidence of leukocyte esterase or nitrates hospital course 85yo F with AF, COPD, Crohn's disease, DM2, HTN came [facility] after mechanical fall at home, in ER found to be in AF/RVR and concern of inadequate self-care., was also hyperglycemic upon presentation discharge diagnosis Atrial fibrillation with RVR patient diagnosed to have atrial fibrillation with RVR, initially treated with IV Cardizem drip, ventricular rate improved, since then patient has been maintained on Toprol-XL 100 mg at a.m. and 50 mg at bedtime, heart rate remains around 100 patient remained asymptomatic with no chest pain, no shortness of breath she has been on Eliquis 2.5 mg twice daily, she needs outpatient follow-up with Cardiology for event recorder, her initial troponins were elevated but remains flat TSH is 0.7 , and echocardiogram showed an EF 65-70% no evidence of regional wall motion abnormality diastolic function was indeterminate. Hyperkalemia patient was noted to have hyperkalemia, treated with insulin and glucose repeat potassium level normalized likely hyperkalemia related to elevated blood sugars. UTI urine culture grew Klebsiella pneumonia patient finish course of ceftriaxone x 7 days EILZA initially noted to have elevated creatinine treated with IV fluids creatinine normalized, likely had prerenal DM2, uncontrolled blood sugars better controlled with addition of Lantus, insulin sliding scale and low-dose metformin, hemoglobin A1c greater than 14, not on oral hypoglycemics in the COPD, no acute exacerbation noted continue prn Duonebs Time Spent with Patient Time attestation: Total time spent providing and/or coordinating discharge services: Discharge coordination time: Greater than 30 minutes Quality: Stroke Does the patient have a stroke diagnosis?: No Physical Exam Vital Signs: Vital Signs: Last Vital Signs Temp 97.2 F 03/18/21 11:03 Pulse 103 H 03/18/21 11:03 Resp 16 03/18/21 11:03 BP 107/58 L 03/18/21 11:03 Pulse Ox 96 03/18/21 11:03 Body Mass Index 20.6 Gen: resting comfortably, no acute distress Neck: supple, no JVD Lungs: clear to auscultation bilaterally, no rales Heart: irregularly irregular, no m/r/g Abd: soft, non-tender, non-distended Ext: no edema Skin: no rash Neuro: alert and oriented x3, no focal findings Psych: appropriate affect DS: Data Data Completed and Pending Labs on day of discharge: Laboratory Results - last 24 hr 03/17/21 03/17/21 03/18/21 16:17 20:24 05:26 Sodium 137 Potassium 5.6 H Chloride 108 Carbon Dioxide 22 Anion Gap 13 BUN 48 H Creatinine 1.27 Estim Creat Clear Calc 26.5 Estimated GFR 40 POC Glucose 293 H 198 H Random Glucose 107 Calcium 9.0 COVID-19 ([facility]) COVID-19 Clin Com 03/18/21 03/18/21 03/18/21 07:05 11:05 14:05 Sodium Potassium Chloride Carbon Dioxide Anion Gap BUN Creatinine Estim Creat Clear Calc Estimated GFR POC Glucose 110 224 H Random Glucose Calcium COVID-19 ([facility]) Negative COVID-19 Clin Com See Note Discharge Plan Discharge Patient Disposition: er [facility] Discharge Diagnosis: atrial fibrillation with RVR UTI hyperkalemia acute kidney injury lactic acidosis diabetes mellitus uncontrolled hypertension Referrals: [facility] [place] [Outside] - 1 Week Manuel Jeff MD [Primary Care Provider] - 1 Week Discharge Medications: New metformin 500 mg Tablet 500 mg PO DAILY@0800 Qty: 30 RF: 0 Lantus U-100 Insulin 100 unit/mL Solution 12 unit subcut DAILY Qty: 10 RF: 0 docusate sodium 100 mg Capsule 100 mg PO DAILY PRN (Reason: Constipation) Qty: 30 RF: 0 acetaminophen 325 mg Tablet 650 mg PO Q6H PRN (Reason: Pain, Mild (Pain Scale 1-3)) Qty: 30 RF: 0 Eliquis 2.5 mg Tablet 2.5 mg PO BID Qty: 60 RF: 0 metoprolol succinate 50 mg Tablet Extended Release 24 Hr 100 mg PO DAILY Qty: 30 RF: 0 metoprolol succinate 50 mg Tablet Extended Release 24 Hr 50 mg PO BEDTIME Qty: 30 RF: 0 Continued oxybutynin chloride 5 mg tablet extended release 24hr 1 tab PO BEDTIME RF: 0 Discontinued nystatin 100,000 unit/gram ointment 1 appl topical BID RF: 0 metoprolol succinate 50 mg tablet extended release 24 hr 1 tab PO DAILY RF: 0 Eliquis 5 mg tablet 1 tab PO BID RF: 0 Discharge Orders: Discharge Order (Routine); Ordered 03/18/21 Ordered By: Raghav Rangel Diet: diabetic diet Activity on Discharge: As tolerated Stand Alone Forms: Patient Portal Discharge page Care Plan Goals: atrial fibrillation with RVR, continue Eliquis 2.5 mg daily renally dose, take Toprol-XL 100 mg at a.m. and Toprol XL 50 mg at nighttime cardiology will arrange for Holter monitor as outpatient, return to check with any worsening symptoms of shortness of breath chest pain lightheadedness or dizziness you finish treatment for UTI in regard to diabetes mellitus started on Lantus and metformin follow diabetic diet check blood sugars daily follow insulin sliding scale and adjust dose of Lantus and metformin as needed Health Concerns: diabetes mellitus uncontrolled, atrial fibrillation with RVR Plan of Treatment: outpatient follow-up with primary care physician and Cardiology in 1 week. Assessment: as above
--- NOTE | 2021-03-18 14:55 | MHC.CM.PN ---
IMM 03/18/21 Female 85 DX AFIB RVR UTI FALL Patient is discharged today to [facility]. She will be transported via BLS. She is going to [facility] in [facility].
[2021-03-18 15:38] VITALS: BP 111/75; PULSE 99; RESP 18; TEMP 36.8; O2SAT 98
[2021-03-18 15:48] LABS: Glucose, Whole Blood 133 mg/dL (60-115)
== END 2021-03-18 17:25 | disposition skilled nursing facility (03) | DRG 309 ==
LOC: HO.ED 20:27 → HO.EDOVER 22:43 → HO.IMC 23:22
PROVIDERS: Family Medicine; Admitting Provider Internal Medicine; Emergency Provider Internal Medicine; PCP Internal Medicine; Visit Provider Hospitalist
DX: I48.91 Unspecified atrial fibrillation (principal); N39.0 Urinary tract infection, site not specified; N17.9 Acute kidney failure, unspecified; J44.9 Chronic obstructive pulmonary disease, unspecified; E11.65 Type 2 diabetes mellitus with hyperglycemia; E87.5 Hyperkalemia; B96.1 Klebsiella pneumoniae [K. pneumoniae] as the cause of diseases classified elsewhere; D72.829 Elevated white blood cell count, unspecified; Z74.1 Need for assistance with personal care; Z20.822 Contact with and (suspected) exposure to COVID-19; Z88.2 Allergy status to sulfonamides; Z88.5 Allergy status to narcotic agent; Z79.4 Long term (current) use of insulin; Z79.01 Long term (current) use of anticoagulants; Z79.899 Other long term (current) drug therapy
CPT/HCPCS: 36415; 71045; 80048; 81001; 82947; 83036; 83605; 83735; 84132; 84443; 84484; 85025; 85027; 87040; 87086; 87088; 87186; 87635; 93005; 93306; 97110; 97116; 97162; 99285; J0696; J1160; J3475